=== PATIENT | female | born 1975 | race Caucasian/White ===

== ENCOUNTER → 2019-08-02 12:33 | Outpatient (BNVA) | payer SELFPAY | PROVIDERS: Family Provider Nurse Practitioner Family; PCP Nurse Practitioner Family; Referring Provider Licensed Practical Nurse; Visit Provider Psychiatry & Neurology Neurology | DX: M54.5 Low back pain (principal); M79.601 Pain in right arm; M79.602 Pain in left arm; F17.210 Nicotine dependence, cigarettes, uncomplicated | CPT/HCPCS: 95886; 95909 ==

== ENCOUNTER 2019-08-13 00:51 | Emergency (ER) | payer OTHER, SELFPAY ==
[2019-08-13 01:03] VITALS: BP 134/75; PULSE 88; RESP 16; TEMP 36.8; O2SAT 96
--- NOTE | 2019-08-13 01:09 | PC.NURSE ---
Patient reports that when she is wakes up she has difficulty walking. Patient states that she has been having numbness and tingling in her extremities. Patient reports that she also has swelling in her right hand. Patient states she has had these symptoms for a long time. Patient reports that she was seen by her PCP and placed on vitamins. Patient states that nothing has seemed to help.
--- NOTE | 2019-08-13 01:25 | ED_ITS ---
HPI - General Adult General: Chief complaint: General Medical Stated complaint: hands swelling/tingling Time Seen by Provider: 08/13/19 00:57 Source: patient Mode of arrival: ambulatory Limitations: no limitations History of Present Illness: HPI narrative: Patient comes in with pain and tingling to her hands and feet. Patient thinks that she may have circulation problems. Patient is a smoker. Patient appears well. No signs of serious illness or injury is noted on observation. Patient appears in no pain. Review of Systems General: Reports: 10 or more systems reviewed and unremarkable except in HPI and below Musc: Reports: other (hand pain) PFS ED PFSH: Statuses (acute, chronic, etc) shown below reflect problem list status as previously entered and may not be historically accurate Medical History (Updated 08/13/19 @ 01:21 by MICHAEL Corral) Intervertebral disc disorder with radiculopathy of lumbosacral region (Chronic) Low back pain (Acute) Surgical History (Updated 07/26/19 @ 11:00 by Elvia Kelly APRN) History of eye prosthesis (Acute) Social History Smoking and tobacco status: current every day smoker Alcohol intake: never Lives independently: Yes Household members: family and children Housing: House Marital status: Single Current occupational status: employed Current occupation: sales department supervisor answering phone for [employer] History of recent travel: No Physical Exam Const: COMMON NORMALS: no apparent distress and oriented x3 GENERAL APPEARANCE: cooperative HENMT: COMMON NORMALS: normocephalic, external ears normal, EAC's normal, TM's normal bilaterally and external nose normal HEAD & SCALP: normal to inspection and normocephalic FACE & SINUS: normal facial exam NOSE: external nose normal GENERAL EAR: hearing not grossly impaired EXTERNAL EAR: Yes external ears normal EXTERNAL AUDITORY CANAL: EAC's normal TYMPANIC MEMBRANE: TM's normal bilaterally MOUTH: oral and palatal mucosa normal THROAT: posterior oropharynx normal Eye: COMMON NORMALS: PERRL and EOMs intact bilaterally PUPIL: Yes PERRL Neck/C-Spine: COMMON NORMALS: full ROM and no lymphadenopathy Lymph: LYMPHATIC: no lymphedema noted Chest: COMMONS NORMALS: inspection of chest normal and palpation of chest normal Resp: COMMON NORMALS: normal respiratory effort and clear to auscultation bilaterally AUSCULTATION: clear to auscultation bilaterally Cardio: COMMON NORMALS: regular rate and regular rhythm RATE: regular rate RHYTHM: regular rhythm GI: COMMON NORMALS: normal to inspection, nondistended, normoactive bowel sounds and non-tender : COMMON NORMALS: Yes no CVA tenderness BLADDER/KIDNEY EXAM: Yes no CVA tenderness Back/Pelvis: COMMON NORMALS: no CVA tenderness and thoracic and lumbar spine normal to inspection Extremity: COMMON NORMALS: normal to inspection GENERAL: No edema Neuro: COMMON NORMALS: oriented x3, moves all extremities and no focal motor deficits Psych: COMMON NORMALS: mental status grossly normal and cooperative Skin: COMMON NORMALS: no rashes or lesions noted GENERAL SKIN EXAM: no rashes or lesions noted Course Vital Signs: Vital signs: Vital Signs Temperature 98.3 F 08/13/19 01:03 Pulse Rate 85 08/13/19 01:35 Respiratory Rate 14 08/13/19 01:35 Blood Pressure 111/73 08/13/19 01:35 Pulse Oximetry 94 08/13/19 01:35 MDM - General Adult MDM Narrative: Medical decision making narrative: Patient comes in today for complaints of tingling and burning to hands and feet. On exam patient has good range of motion the fingers prompt capillary refill is noted in the fingers. Patient may have some mild clubbing in the fingers. No swelling is noted in the extremities. Patient moves all extremities well. Patient has a positive Vince's sign. Differential diagnosis peripheral vascular disease, Buerger's disease, malingering, cervical radiculopathy, lumbar radiculopathy, carpal tunnel syndrome. Reviewed recommendations to stop smoking with patient recommended Tylenol as needed for pain. 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 Patient requested referral to specialists or a new internal medicine doctor since her primary care Dr. Bang had moved from the area. I reviewed [facility] registry and notice a Dr. Ari Evans that was new to the area and recommended that she follow-up with her who has a interest in rheumatology and is internal medicine. Patient reports understanding and agreed with plan and need for follow-up. Discharge Plan Discharge Patient Disposition: Home, Self-Care Clinical Impression: Hand and foot pain Qualifiers: Laterality: unspecified laterality Qualified Code(s): M79.643 - Pain in unspecified hand Condition: Stable Prescriptions: No Action gabapentin 300 mg capsule 300 mg PO TID RF: 0 ibuprofen 800 mg tablet 800 mg PO TID PRNRF: 0 loratadine 10 mg capsule 10 mg PO ONCE RF: 0 promethazine 25 mg tablet 25 mg PO ONCE PRNRF: 0 methocarbamol 750 mg tablet 750 mg PO TID PRNRF: 0 ranitidine HCl 75 mg tablet 75 mg PO ONCE RF: 0 Discharge Orders: Discharge Order (Routine); Ordered 08/13/19 Ordered By: Dexter Newman Referrals: Jose J Delacruz [Primary Care Provider] - Discharge Diet: Usual diet Discharge Activity: Increase activity as tolerated Patient Instructions: How to Stop Smoking (ED) Activity Restrictions/Additional Instructions: Drink plenty of water Stop smoking Activity as tolerated Use acetaminophen as needed for pain Keep hands warm Use mittens instead of gloves in the cold Follow-up with primary care Case management will contact you to assist with follow-up Discharge Date/Time: 08/13/19 01:36 Coding Level of Care Code ED Credit Director for Chg Fwd Exam Problem Focused
[2019-08-13 01:35] VITALS: BP 111/73; PULSE 85; RESP 14; O2SAT 94
--- NOTE | 2019-08-16 12:04 | DCPLANNER ---
fish farm manager had message to schedule a follow up appointment for patient with Rheumatology. fish farm manager called clinic, spoke with Tracy, a follow up appointment was scheduled. fish farm manager called patient and informed patient of the scheduled appointment, patient stated that she wanted the appointment cancelled, she will see her primary care physician. fish farm manager will mail patient both of the financial sales manager applications to fill out and turn in.
== END 2019-08-13 01:36 | disposition home or self-care (01) ==
LOC: ER 01:26
PROVIDERS: Emergency Provider Nurse Practitioner Family; Family Provider Nurse Practitioner Family; PCP Nurse Practitioner Family
DX: M79.642 Pain in left hand (principal); M79.641 Pain in right hand; M79.672 Pain in left foot; M79.671 Pain in right foot; F17.210 Nicotine dependence, cigarettes, uncomplicated
CPT/HCPCS: 99281

== ENCOUNTER 2019-10-01 11:08 | Emergency (ER) | payer SELFPAY ==
[2019-10-01 11:14] VITALS: BP 113/67; PULSE 67; RESP 16; TEMP 36.4; O2SAT 96; BMI 30.2
--- NOTE | 2019-10-01 11:21 | W.ED.GENADLT ---
Documented by User: [email or web address] Clancy 10/01/19 16:07 HPI - General Adult General: Chief complaint: General Medical Stated complaint: Sore throat Time Seen by Provider: 10/01/19 11:15 History of Present Illness: HPI narrative: Patient is a 44-year-old female who comes to the ED with a sore throat and nasal congestion. States the sore throat started today. She has had nasal congestion and drainage for couple days now. Patient was seen by urgent care a couple days ago and was diagnosed with sinus infection and put on Bactrim. Patient says they did not perform strep test her influenza swab when she was at the urgent care. Today she woke up with a sore throat and a little bit of nausea. Patient is a smoker and states she has a chronic cough and denies any acute progression or worsening of cough. Denies vomiting, diarrhea, hematuria, dysuria, abdominal pain, chest pain, shortness of breath, acute cough. Patient denies any recent travel outside of [place] in the last month. Patient has not traveled to [place], [facility] or [place] in the last month. She denies any contact with known COVID-19 positive patient. Associated symptoms: Reports nausea; Deny chest pain, dyspnea, headache(s), rash, palpitations or vomiting Review of Systems Const: Reports: fatigue; Denies: fever or chills Eyes: Denies: change in vision or eye discomfort ENMT: Reports: throat pain, nasal discharge and nasal congestion; Denies: painful swallowing Card: Denies: chest pain, palpitations, edema, swelling of feet/ankles, shortness of breath on exertion or shortness of breath when lying down Resp: Reports: non-productive cough (chronic smoker;s cough-no acute change or worsening symptoms); Denies: shortness of breath or productive cough GI: Reports: nausea; Denies: abdominal pain, vomiting, diarrhea, constipation or blood in stool : Denies: flank pain, painful urination or blood in urine Musc: Denies: neck pain, back pain or extremity swelling Skin/Breast: Denies: rash or new lesion Neuro: Denies: headache, numbness in extremities or weakness in extremities PFS ED PFSH: Medical History Intervertebral disc disorder with radiculopathy of lumbosacral region Low back pain Surgical History History of eye prosthesis Family History Mother Diabetes Father Heart disease Arthritis Social History (Updated 10/02/19 @ 12:51 by Harper Chan LPN) Smoking and tobacco status: current every day smoker Alcohol intake: never Lives independently: Yes Household members: family and children Housing: House Marital status: Single Current occupational status: unemployed History of recent travel: No Female Reproductive History: Date of last menstrual period: 09/12/19 Physical Exam Narrative: EXAM NARRATIVE: Patient is a 44-year-old female who appears in no acute distress or pain when I enter the room. She is in no respiratory distress and is sitting comfortably on exam bed. Const: COMMON NORMALS: oriented x3 HENMT: COMMON NORMALS: normocephalic, TM's normal bilaterally and external nose normal HEAD & SCALP: normocephalic NOSE: external nose normal and nasal discharge clear TYMPANIC MEMBRANE: TM's normal bilaterally MOUTH: oral and palatal mucosa normal THROAT: uvula midline and posterior oropharynx abnormal cobblestoning, erythema and other (Patient appears to have a tonsillary stone on Right side) Neck/C-Spine: COMMON NORMALS: supple GENERAL: Yes normal visual inspection Lymph: LYMPHATIC: no lymphadenopathy noted Resp: COMMON NORMALS: normal respiratory effort, no retractions, no use of accessory muscles and clear to auscultation bilaterally AUSCULTATION: clear to auscultation bilaterally Cardio: COMMON NORMALS: regular rate, regular rhythm, S1 normal heart sound, S2 normal heart sound, no gallops, no clicks, no murmurs and peripheral pulses 2+ throughout RATE: regular rate RHYTHM: regular rhythm HEART SOUNDS: S1 normal and S2 normal PERIPHERAL PULSES: pulses 2+ throughout GI: COMMON NORMALS: normal to inspection, nondistended, normoactive bowel sounds, soft to palpation, non-tender and no masses PALPATION: Yes soft : COMMON NORMALS: Yes no CVA tenderness BLADDER/KIDNEY EXAM: Yes no CVA tenderness Back/Pelvis: COMMON NORMALS: no CVA tenderness Extremity: COMMON NORMALS: normal to inspection Neuro: COMMON NORMALS: oriented x3 and moves all extremities Skin: COMMON NORMALS: no rashes or lesions noted GENERAL SKIN EXAM: no rashes or lesions noted and dry skin Course Vital Signs: Vital signs: Vital Signs Temperature 98.4 F 10/01/19 13:09 Pulse Rate 64 10/01/19 13:09 Respiratory Rate 16 10/01/19 13:09 Blood Pressure 104/57 10/01/19 13:09 Pulse Oximetry 97 10/01/19 13:09 [facility] - General Adult Lab Data: Attestation: I reviewed the patient's lab results. Labs: Lab Results 10/01/19 10/01/19 Range/Units 11:30 11:30 Influenza Type A A g Negative (Negative) POC Influenza B Ag Negative (Negative) Group A Strep Rapi d Negative (Negative) Discharge Plan Discharge Patient Disposition: Home, Self-Care Clinical Impression: Pharyngitis with viral syndrome Condition: Stable Prescriptions: No Action gabapentin 300 mg capsule 300 mg PO TID RF: 0 ibuprofen 800 mg tablet 800 mg PO TID PRNRF: 0 loratadine 10 mg capsule 10 mg PO ONCE RF: 0 promethazine 25 mg tablet 25 mg PO ONCE PRNRF: 0 methocarbamol 750 mg tablet 750 mg PO TID PRNRF: 0 ranitidine HCl 75 mg tablet 75 mg PO ONCE RF: 0 buprenorphine HCl 2 mg tablet, sublingual 4 mg SUBLINGUAL DAILY RF: 0 buprenorphine HCl 8 mg tablet, sublingual 16 mg SUBLINGUAL DAILY RF: 0 sulfamethoxazole-trimethoprim [Bactrim DS] 800-160 mg tablet 1 tab PO BID 10 Days Qty: 20 RF: 0 Discharge Orders: Discharge Order (Routine); Ordered 10/01/19 Ordered By: Yoan Cleary Referrals: Jose J Delacruz [Primary Care Provider] - Discharge Diet: Regular Discharge Activity: Resume usual activity Patient Instructions: Pharyngitis (ED) Activity Restrictions/Additional Instructions: Follow-up with PCP in 7 days for reevaluation. Take ibuprofen or Tylenol for fevers. Drink plenty of fluids and stay hydrated. Continue taking all home medications. Discharge Date/Time: 10/01/19 12:58 Coding Level of Care Code ED Agricultural Education Instructor for Chg Fwd Exam Comprehensive Documented by User: Duong Kiser DO 10/03/19 12:55 HPI - General Adult General: Chief complaint: General Medical Stated complaint: Sore throat Time Seen by Provider: 10/01/19 11:15 PFSH ED PFSH: Medical History Intervertebral disc disorder with radiculopathy of lumbosacral region Low back pain Surgical History History of eye prosthesis Family History Mother Diabetes Father Heart disease Arthritis Social History (Updated 10/02/19 @ 12:51 by Harper Chan LPN) Smoking and tobacco status: current every day smoker Alcohol intake: never Lives independently: Yes Household members: family and children Housing: House Marital status: Single Current occupational status: unemployed History of recent travel: No Course Vital Signs: Vital signs: Vital Signs Temperature 98.4 F 10/01/19 13:09 Pulse Rate 64 10/01/19 13:09 Respiratory Rate 16 10/01/19 13:09 Blood Pressure 104/57 10/01/19 13:09 Pulse Oximetry 97 10/01/19 13:09 MDM - General Adult MDM Narrative: Medical decision making narrative: Chart reviewed, agree with assessment and plan Lab Data: Labs: Lab Results 10/01/19 10/01/19 Range/Units 11:30 11:30 Influenza Type A A g Negative (Negative) POC Influenza B Ag Negative (Negative) Group A Strep Rapi d Negative (Negative) Discharge Plan Discharge Patient Disposition: Home, Self-Care Clinical Impression: Pharyngitis with viral syndrome Condition: Stable Prescriptions: No Action gabapentin 300 mg capsule 300 mg PO TID RF: 0 ibuprofen 800 mg tablet 800 mg PO TID PRNRF: 0 loratadine 10 mg capsule 10 mg PO ONCE RF: 0 promethazine 25 mg tablet 25 mg PO ONCE PRNRF: 0 methocarbamol 750 mg tablet 750 mg PO TID PRNRF: 0 ranitidine HCl 75 mg tablet 75 mg PO ONCE RF: 0 buprenorphine HCl 2 mg tablet, sublingual 4 mg SUBLINGUAL DAILY RF: 0 buprenorphine HCl 8 mg tablet, sublingual 16 mg SUBLINGUAL DAILY RF: 0 sulfamethoxazole-trimethoprim [Bactrim DS] 800-160 mg tablet 1 tab PO BID 10 Days Qty: 20 RF: 0 Discharge Orders: Discharge Order (Routine); Ordered 10/01/19 Ordered By: Yoan Cleary Referrals: Jose J Delacruz [Primary Care Provider] - Discharge Diet: Regular Discharge Activity: Resume usual activity Patient Instructions: Pharyngitis (ED) Activity Restrictions/Additional Instructions: Follow-up with PCP in 7 days for reevaluation. Take ibuprofen or Tylenol for fevers. Drink plenty of fluids and stay hydrated. Continue taking all home medications. Discharge Date/Time: 10/01/19 12:58 Coding Level of Care Code ED Agricultural Education Instructor for Julianna Fwd Exam Comprehensive
[2019-10-01 11:48] LABS: Rapid Strep A Test Negative (Negative)
[2019-10-01 11:59] LABS: Influenza A by IFA Negative (Negative); Influenza B by IFA Negative (Negative)
[2019-10-01 13:09] VITALS: BP 104/57; PULSE 64; RESP 16; TEMP 36.9; O2SAT 97
== END 2019-10-01 12:58 | disposition home or self-care (01) ==
LOC: ER 12:58
PROVIDERS: Emergency Provider Physician Assistant; Family Provider Nurse Practitioner Family; PCP Nurse Practitioner Family
DX: B34.9 Viral infection, unspecified (principal); J02.9 Acute pharyngitis, unspecified; F17.200 Nicotine dependence, unspecified, uncomplicated
CPT/HCPCS: 12345; 87081; 87804; 87880; 99282

== ENCOUNTER → 2019-10-24 13:01 | Outpatient (BNVA) | payer OTHER, SELFPAY | PROVIDERS: Family Provider Nurse Practitioner Family; PCP Nurse Practitioner Family; Referring Provider Specialist; Visit Provider Anesthesiology Pain Medicine | DX: M51.36 Other intervertebral disc degeneration, lumbar region (principal); M54.16 Radiculopathy, lumbar region; M47.816 Spondylosis without myelopathy or radiculopathy, lumbar region; M43.10 Spondylolisthesis, site unspecified; M62.830 Muscle spasm of back; F17.210 Nicotine dependence, cigarettes, uncomplicated | CPT/HCPCS: 99204; 99205 ==

== ENCOUNTER 2019-10-24 22:11 | Emergency (ER) | payer SELFPAY ==
[2019-10-24 22:18] VITALS: BP 125/65; PULSE 92; RESP 18; TEMP 36.7; O2SAT 95; BMI 30.9
--- NOTE | 2019-10-24 22:19 | W.ED.URI ---
HPI - URI/Sore Throat General: Chief Complaint: Skin/Abscess/Foreign Body Stated Complaint: sore throat Time Seen by Provider: 10/24/19 22:13 Source: patient Mode of arrival: ambulatory Limitations: no limitations History of Present Illness: HPI Narrative: Patient comes in today with complaints of sore throat. On exam she has a pustule to her right tonsil. No airway obstruction or significant swelling is noted to the tonsil. Patient appears mildly unwell. Patient appears in no acute distress. Patient appears in mild pain. MD elicited complaint: sore throat Review of Systems General: Reports: 10 or more systems reviewed and unremarkable except in HPI and below ENMT: Reports: throat pain PFSH ED PFSH: Social History Smoking and tobacco status: light tobacco smoker Alcohol intake: never Lives independently: Yes Household members: family and children Housing: House Marital status: Single Current occupational status: unemployed History of recent travel: No Female Reproductive History: Date of last menstrual period: 09/12/19 Physical Exam Const: COMMON NORMALS: no apparent distress and oriented x3 GENERAL APPEARANCE: cooperative HENMT: COMMON NORMALS: normocephalic, TM's normal bilaterally and external nose normal HEAD & SCALP: normal to inspection and normocephalic NOSE: external nose normal TYMPANIC MEMBRANE: TM's normal bilaterally MOUTH: oral and palatal mucosa normal THROAT: posterior oropharynx abnormal (A pustule was noted to the right tonsil. Airway is intact. Tonsil is very small in size and no significant airway obstruction is noted. With use of Q-tip was able to express some purulent drainage from the pustule. Collection was sent to lab.) Eye: GENERAL EYE: normal appearance of both eyes Neck/C-Spine: COMMON NORMALS: full ROM Lymph: LYMPHATIC: no lymphadenopathy noted Chest: COMMONS NORMALS: inspection of chest normal Resp: COMMON NORMALS: normal respiratory effort EFFORT & INSPECTION: Yes able to speak in complete sentences Cardio: COMMON NORMALS: regular rate and regular rhythm RATE: regular rate RHYTHM: regular rhythm GI: COMMON NORMALS: non-tender : COMMON NORMALS: Yes no CVA tenderness BLADDER/KIDNEY EXAM: Yes no CVA tenderness Back/Pelvis: COMMON NORMALS: no CVA tenderness and thoracic and lumbar spine normal to inspection Extremity: COMMON NORMALS: normal to inspection Neuro: COMMON NORMALS: oriented x3 and moves all extremities Psych: COMMON NORMALS: mental status grossly normal and cooperative Skin: COMMON NORMALS: no rashes or lesions noted GENERAL SKIN EXAM: no rashes or lesions noted Course Vital Signs: Vital signs: Vital Signs Temperature 98.0 F 10/24/19 22:18 Pulse Rate 92 10/24/19 22:18 Respiratory Rate 18 10/24/19 22:18 Blood Pressure 125/65 10/24/19 22:18 Pulse Oximetry 95 10/24/19 22:18 MDM - URI/Sore Throat MDM Narrative: Medical decision making narrative: Patient comes in for pustule to the right tonsil. On exam we were able to express some purulent drainage from the tonsil. Patient has very atrophied tonsils so no involvement in the airway or significance with swallowing is noted. Purulent drainage was collected and sent to the lab for culture. We will start patient on clindamycin 3 times a day for 10 days. Patient was given a dose tonight. Patient was also given a dose of dexamethasone for swelling and a dose of Toradol for her complaints of back pain. Differential diagnosis includes but not limited to strep pharyngitis, viral syndrome, tonsillar abscess, peritonsillar abscess. Reviewed exam with patient with recommendations for treatment. Patient reported understanding agreed to plan. Discharge Plan Discharge Patient Disposition: Home, Self-Care Clinical Impression: Tonsillar abscess Low back pain Qualifiers: Chronicity: chronic Back pain laterality: unspecified Sciatica presence: without sciatica Qualified Code(s): M54.5 - Low back pain Condition: Stable Prescriptions: New clindamycin HCl 300 mg capsule 300 mg PO TID 10 Days Qty: 30 RF: 0 No Action gabapentin 300 mg capsule 300 mg PO TID RF: 0 ibuprofen 800 mg tablet 800 mg PO TID PRNRF: 0 loratadine 10 mg capsule 10 mg PO ONCE RF: 0 promethazine 25 mg tablet 25 mg PO ONCE PRNRF: 0 methocarbamol 750 mg tablet 750 mg PO TID PRNRF: 0 ranitidine HCl 75 mg tablet 75 mg PO ONCE RF: 0 buprenorphine HCl 2 mg tablet, sublingual 4 mg SUBLINGUAL DAILY RF: 0 buprenorphine HCl 8 mg tablet, sublingual 16 mg SUBLINGUAL DAILY RF: 0 Referrals: Jose J Delacruz [Family Provider] - Brock Lux MD [Primary Care Provider] - Coding Level of Care Code ED Legal Billing Specialist for Chg Fwd Exam Comprehensive
[2019-10-24] MEDS: clindamycin 150 mg Capsule 300 MG PO (23:16)
[2019-10-24] MEDS: dexamethasone 10 mg/mL INJ IM (23:17)
[2019-10-24] MEDS: ketorolac 30 mg/mL INJ IM (23:20)
[2019-10-24 23:33] LABS: Rapid Strep A Test Negative (Negative)
[2019-10-25 00:24] VITALS: BP 119/62; PULSE 67; RESP 17; O2SAT 98
--- NOTE | 2019-10-25 12:13 | DCPLANNER ---
off track betting manager had message to schedule a follow up appointment for patient with ENT. off track betting manager spoke with patient, supportive employment case manager informed patient that the ENT for [facility] was out of the office till next week, but that supportive employment case manager could schedule a follow up appointment for patient with Dr. Guerra in [place], if patient would like. Patient stated that she has free health care at [facility], and would like for supportive employment case manager to schedule a follow up appointment with [facility]. off track betting manager called [facility], the ENT clinic. off track betting manager gave clinic patients information, was told that a message would be sent to the physician and a follow up appointment would be scheduled. Clinic will call supportive employment case manager and patient with appointment information.
--- NOTE | 2019-11-01 10:15 | DCPLANNER ---
cattle manager called [facility] ENT, patient has a follow up appointment scheduled for Saturday, November 02, 2019 at 11:[address] Barakat.
--- NOTE | 2019-11-28 14:17 | DCPLANNER ---
Patient attended appointment scheduled for 11.02.19 with [facility] ENT, patient did attend the appointment.
== END 2019-10-25 00:26 | disposition home or self-care (01) ==
PROVIDERS: Emergency Provider Nurse Practitioner Family; Family Provider Nurse Practitioner Family; PCP Family Medicine
DX: J36 Peritonsillar abscess (principal); F17.210 Nicotine dependence, cigarettes, uncomplicated
CPT/HCPCS: 12345; 87070; 87880; 96372; 99282; J1100; J1885

== ENCOUNTER → 2019-12-07 18:56 | Outpatient (BNVA) | payer SELFPAY | PROVIDERS: Family Provider Nurse Practitioner Family; PCP Family Medicine; Visit Provider Nurse Practitioner Family | DX: J02.0 Streptococcal pharyngitis (principal) | CPT/HCPCS: 87880 ==

== ENCOUNTER → 2019-12-31 08:49 | Outpatient (BNVA) | payer OTHER, SELFPAY | PROVIDERS: Family Provider Nurse Practitioner Family; PCP Family Medicine; Visit Provider Anesthesiology Pain Medicine | DX: M54.41 Lumbago with sciatica, right side (principal); M54.42 Lumbago with sciatica, left side; M54.16 Radiculopathy, lumbar region; F17.210 Nicotine dependence, cigarettes, uncomplicated | CPT/HCPCS: 99213 ==

== ENCOUNTER → 2020-05-19 15:46 | Outpatient (BNVA) | payer OTHER, SELFPAY | PROVIDERS: Family Provider Nurse Practitioner Family; PCP Family Medicine; Visit Provider Nurse Practitioner Family | DX: Z11.59 Encounter for screening for other viral diseases (principal); Z20.828 Contact with and (suspected) exposure to other viral communicable diseases; J06.9 Acute upper respiratory infection, unspecified | CPT/HCPCS: 87635 ==

== ENCOUNTER → 2020-06-27 12:05 | Outpatient (BNVA) | payer SELFPAY | PROVIDERS: Family Provider Nurse Practitioner Family; PCP Family Medicine; Visit Provider Nurse Practitioner | DX: J02.9 Acute pharyngitis, unspecified (principal); H66.92 Otitis media, unspecified, left ear; J01.90 Acute sinusitis, unspecified | CPT/HCPCS: 87071; 87880 ==

== ENCOUNTER 2020-10-05 17:56 | Emergency (ER) | payer SELFPAY ==
[2020-10-05 18:01] VITALS: BP 113/69; PULSE 71; RESP 18; TEMP 36.8; O2SAT 98; BMI 27.4
--- NOTE | 2020-10-05 18:50 | ED_ITS ---
HPI - Back Pain/Injury General: Chief Complaint: Back Pain/Injury Stated Complaint: mid to lower back pain Time Seen by Provider: 10/05/20 18:12 Source: patient Mode of arrival: ambulatory Limitations: no limitations History of Present Illness: HPI Narrative: Patient is a 45-year-old female with chronic back pain. She said she occasionally gets flareups of pain and she tries to manage it at home but this episode has been too severe for her to manage. She normally takes gabapentin regularly but this has not helped her pain. Pain has been ongoing for a few days now. She denies any fall or back injuries. Denies any fever. Denies any weakness in her legs, denies any fecal or urinary incontinence. Denies any paresthesia or perianal anesthesia. MD elicited complaint: back pain Pertinent past history: prior back pain Onset (ago): day(s) Timing: constant Severity: severe Similar Symptoms Previously: Yes Quality: sharp Location: right lower back and left lower back Radiation: left leg below the knee and right leg below the knee Exacerbating factors: movement Relieving factors: none Associated symptoms: Deny abdominal pain, arthralgias, chills, change in bowel habits, difficulty walking, dysuria, fatigue, fecal incontinence, fever(s), hematuria, myalgias, nausea, numbness, syncope, tingling/numbness/burning, urinary frequency, urinary urgency, vomiting or weakness Treatments prior to arrival: NSAIDS, prescription analgesics and other medications Work related injury: No Review of Systems General: Reports: 10 or more systems reviewed and unremarkable except in HPI and below Const: Denies: fever(s), chills or fatigue Card: Denies: syncope GI: Denies: abdominal pain, nausea, vomiting, fecal incontinence or change in bowel habits : Denies: dysuria, urinary urgency or hematuria Neuro: Denies: difficulty walking PFSH ED PFSH: Medical History Intervertebral disc disorder with radiculopathy of lumbosacral region Low back pain Surgical History History of eye prosthesis Family History Mother Diabetes Father Heart disease Arthritis Social History Smoking and tobacco status: light tobacco smoker Alcohol intake: never Lives independently: Yes Household members: family and children Housing: House Marital status: Single Current occupational status: unemployed History of recent travel: No Female Reproductive History: Date of last menstrual period: 09/12/19 Physical Exam Const: COMMON NORMALS: no acute distress, average body habitus, patient oriented x3, no limitations, healthy appearing, alert and well nourished Neck/C-Spine: COMMON NORMALS: full ROM, supple, no meningeal signs, no JVD and No carotid bruits Resp: COMMON NORMALS: normal respiratory effort, No retractions, No use of accessory muscles, clear to auscultation bilaterally and percussion normal AUSCULTATION: clear to auscultation bilaterally PERCUSSION: percussion normal Cardio: COMMON NORMALS: no JVD, regular rate, regular rhythm, S1 normal heart sound present, S2 normal heart sound present, No gallops present (Cardio), No clicks present (Cardio), No murmurs present (Cardio), No rub (Cardio) and Peripheral pulses 2+ throughout RATE: regular rate RHYTHM: regular rhythm HEART SOUNDS: S1 normal heart sound present and S2 normal heart sound present PERIPHERAL PULSES: Peripheral pulses 2+ throughout GI: COMMON NORMALS: Normal to inspection, nondistended, normoactive bowel sounds present, Soft to palpation, non-tender, No hepatosplenomegaly present, no masses and no bruits PALPATION: Yes Soft to palpation and Yes No hepatosplenomegaly present Back/Pelvis: LUMBAR SPINE/LOWER BACK: Yes paraspinal muscle tenderness Lumbar paraspinal muscle tenderness: bilateral and Yes paraspinal muscle spasm Lumbar paraspinal muscle spasm: bilateral SACROILIAC JOINTS: Yes SI joint(s) abnormal SI joint details: tender to palpation Extremity: COMMON NORMALS: normal to inspection, full ROM, capillary refill normal, no calf tenderness and no pedal edema Neuro: COMMON NORMALS: patient oriented x3 SENSORIUM/ORIENTATION: Yes alert MENINGEAL SIGNS: Yes no meningeal signs Skin: COMMON NORMALS: no rashes or lesions noted, no wounds, turgor normal, no jaundice, no petechiae and no mottling GENERAL SKIN EXAM: no rashes or lesions noted and turgor normal Course Reevaluation(s): Reevaluation #1: Patient just wants a steroid shot and to be discharged home. She says that usually helps with her pain. Time: 18:51 Vital Signs: Vital signs: Vital Signs Temperature 98.2 F 10/05/20 18:01 Pulse Rate 71 10/05/20 18:01 Respiratory Rate 18 10/05/20 18:01 Blood Pressure 113/69 10/05/20 18:01 Pulse Oximetry 98 10/05/20 18:01 MDM - Back Pain/Injury MDM Narrative: Medical decision making narrative: 45-year-old female patient who presented to the emergency department with 2 stents with lumbar radiculopathy. She was given intramuscular ketorolac, dexamethasone, and orphenadrine. She is then discharged home Medical Records: Attestation: I reviewed the patient's medical records. Discharge Plan Discharge Patient Disposition: Home Clinical Impression: Lumbar radiculopathy Condition: Stable Prescriptions: Continued gabapentin 300 mg capsule 300 mg PO TID RF: 0 ibuprofen 800 mg tablet 800 mg PO TID PRNRF: 0 loratadine 10 mg capsule 10 mg PO ONCE RF: 0 promethazine 25 mg tablet 25 mg PO ONCE PRNRF: 0 methocarbamol 750 mg tablet 750 mg PO TID PRNRF: 0 buprenorphine HCl 2 mg tablet, sublingual 4 mg SUBLINGUAL DAILY RF: 0 buprenorphine HCl 8 mg tablet, sublingual 16 mg SUBLINGUAL DAILY RF: 0 amoxicillin 500 mg capsule 500 mg PO TID 10 Days Qty: 30 RF: 0 Discharge Orders: Discharge ED (Routine); Ordered 10/05/20 Ordered By: Naya Deluca Referrals: Brock Lux MD [Primary Care Provider] - 1-3 days Discharge Diet: Usual diet Discharge Activity: Increase activity as tolerated Patient Instructions: Lumbar Radiculopathy (ED) Activity Restrictions/Additional Instructions: Return for any new or worsening symptoms. Follow up with your primary care provider within 3 days. Continue your home medications. Rest your back for one to two days, then gradually return to your prior levels of activity. Coding Level of Care Code ED Traffic Court Referee for Julianna Irene
[2020-10-05] MEDS: orphenadrine 30 mg/mL Inj 2 mL 60 MG IM (19:06)
[2020-10-05] MEDS: dexamethasone 10 mg/mL INJ IM (19:06)
[2020-10-05] MEDS: ketorolac 30 mg/mL INJ IM (19:06)
== END 2020-10-05 19:10 | disposition home or self-care (01) ==
PROVIDERS: Emergency Provider Family Medicine; PCP Family Medicine
DX: M54.16 Radiculopathy, lumbar region (principal); F17.210 Nicotine dependence, cigarettes, uncomplicated
CPT/HCPCS: 96372; 99283; J1100; J1885; J2360

== ENCOUNTER → 2021-03-19 14:24 | Outpatient (BNVA) | payer OTHER, SELFPAY | PROVIDERS: PCP Family Medicine; Visit Provider Nurse Practitioner Family | DX: Z20.822 Contact with and (suspected) exposure to COVID-19 (principal); J06.9 Acute upper respiratory infection, unspecified | CPT/HCPCS: 87635 ==

== ENCOUNTER → 2021-03-21 12:27 | Outpatient (BNVA) | payer SELFPAY | PROVIDERS: PCP Family Medicine; Visit Provider Nurse Practitioner | DX: J02.9 Acute pharyngitis, unspecified (principal) | CPT/HCPCS: 87880 ==

== ENCOUNTER 2021-06-13 10:32 | Emergency (ER) | payer SELFPAY ==
[2021-06-13 10:46] VITALS: BP 107/73; PULSE 76; RESP 16; TEMP 36.8; O2SAT 97; BMI 25.9
--- NOTE | 2021-06-13 10:52 | XRR_ITS ---
PROCEDURE INFORMATION: Exam: XR Right Shoulder Exam date and time: 06/13/2021 10:52 AM Age: 45 years old Clinical indication: Pain; Shoulder; Right; Additional info: Right shoulder pain TECHNIQUE: Imaging protocol: XR Right shoulder. Views: 2 or more views. COMPARISON: CR Shoulder 2+ views RIGHT* [id number] 05/03/2018 3:17 PM FINDINGS: Bones/joints: Bones intact and normally aligned. Normal appearance of the glenohumeral and acromioclavicular joints. Soft tissues: Soft tissues unremarkable. XR/XR shoulder RT min 2V* [id number] IMPRESSION: No acute findings. Radiation Dose CTDIVOL = (mGy): DLP = (mGy-cm)
--- NOTE | 2021-06-13 10:52 | W.ED.EXTPRO ---
HPI - Extremity Problem General: Chief complaint: Extremity Injury, Upper Stated complaint: R SHOULDER/BILATERAL EAR/BACK PAINS Time Seen by Provider: 06/13/21 10:51 Source: patient Mode of arrival: ambulatory Limitations: no limitations History of Present Illness: HPI Narrative: 45-year-old female ER today for cough, congestion, ear pain x3 days. Patient also reports right shoulder pain that started after working and lifting wood yesterday. Patient reports history of chronic back pain which is a little bit worse today and she attributes that to also working and lifting wood yesterday. Patient denies any history of a right shoulder injury. She reports pain is not always present but only with certain movements. She cannot identify these movements, they hit suddenly and patient has severe pain but it quickly goes away. Patient denies any weakness in the right arm or shoulder. For patient's congestion and cough she reports she has taken Afrin a couple of times but otherwise not done anything for her symptoms. Patient denies any ear discharge at this time. Patient reports she is a smoker but was recently started on Wellbutrin to help her stop smoking. She is on day 5 and plans to stop that tomorrow. Denies any fever, chills, headache, chest pain, shortness of breath, nausea, vomiting, diarrhea, constipation. Complaint: joint pain Onset (ago): day(s) Pain Consistency: intermittent Location: right Severity scale (1-10): 8 Quality: stabbing Radiation: none Relieving factors: nothing Exacerbating factors: nothing Associated symptoms: Deny chest pain, fever(s) or rash Review of Systems General: Reports: 10 or more systems reviewed and unremarkable except in HPI and below Const: Denies: fever(s), chills, body aches or fatigue ENMT: Reports: ear or mastoid pain, nasal discharge and nasal congestion; Denies: throat pain, ear discharge or change in hearing Card: Denies: chest pain or palpitations Resp: Reports: productive cough and wheezing; Denies: dyspnea GI: Denies: abdominal pain, nausea, vomiting, diarrhea or constipation Musc: Reports: back pain (Chronic back pain) and joint pain (Right shoulder pain); Denies: neck pain Skin/Breast: Denies: rash or pruritus Neuro: Denies: headache(s), numbness in extremities or dizziness PFS ED PFSH: Medical History Intervertebral disc disorder with radiculopathy of lumbosacral region Low back pain Surgical History History of eye prosthesis Family History Mother Diabetes Father Heart disease Arthritis Social History Alcohol intake: never Lives independently: Yes Household members: family and children Housing: House Marital status: Single Current occupational status: unemployed History of recent travel: No Female Reproductive History: Date of last menstrual period: 09/12/19 Physical Exam Const: COMMON NORMALS: no acute distress, average body habitus and patient oriented x3 GENERAL APPEARANCE: cooperative and comfortable HENMT: COMMON NORMALS: normocephalic, external ears normal, TM's normal bilaterally, Normal external nose present and oropharynx normal HEAD & SCALP: normocephalic NOSE: Normal external nose present, Abnormal mucous membranes and turbinates present erythematous and Nasal discharge present clear EXTERNAL EAR: Yes external ears normal TYMPANIC MEMBRANE: TM's normal bilaterally Eye: COMMON NORMALS: conjunctivae normal GENERAL EYE: appearance normal, both eyes and all related structures CONJUNCTIVA: Yes conjunctivae normal Lymph: LYMPHATIC: no lymphadenopathy noted Resp: COMMON NORMALS: normal respiratory effort and No retractions EFFORT & INSPECTION: Yes able to speak in complete sentences AUSCULTATION: no crackles, no rales, no rhonchi, wheezes inspiratory wheezes and throughout and lung sounds not diminished Cardio: COMMON NORMALS: regular rate and regular rhythm RATE: regular rate RHYTHM: regular rhythm GI: COMMON NORMALS: Normal to inspection, nondistended, normoactive bowel sounds present, Soft to palpation and non-tender PALPATION: Yes Soft to palpation : COMMON NORMALS: Yes no CVA tenderness BLADDER/KIDNEY EXAM: Yes no CVA tenderness Back/Pelvis: COMMON NORMALS: no CVA tenderness LUMBAR SPINE/LOWER BACK: Yes normal to inspection, Yes lumbar ROM normal, Yes lumbar spinal tenderness (mild) Lumbar spinal tenderness location: L5, No paraspinal muscle tenderness and No paraspinal muscle spasm Extremity: RIGHT UPPER EXTREMITY: Yes shoulder joint (non tender to palpation) Right shoulder: Yes Right shoulder joint inspection exam (Normal), Yes palpation, Yes Right shoulder joint ROM exam (Normal range of motion, no pain elicited with range of motion), Yes Right shoulder joint neurovascular exam (Intact) and Yes Right shoulder joint special tests Right shoulder special tests: Empty can test: Negative Neuro: COMMON NORMALS: patient oriented x3, moves all extremities, no sensory deficits noted and gait normal Psych: COMMON NORMALS: mental status grossly normal, Normal thought process present, cooperative, normal affect and speech normal SPEECH: Yes normal speech THOUGHT PROCESS: Normal thought process present Skin: COMMON NORMALS: no rashes or lesions noted GENERAL SKIN EXAM: no rashes or lesions noted Course ED course: Patient presents to the ER today for congestion, ear pain, cough, and right shoulder pain. Patient reports the congestion and upper respiratory symptoms have been going on for 3 days now. She denies any fever or chills associated with those. Patient also complains of right shoulder pain that happened after lifting wood yesterday. She has a history of low back pain and has some mild pain since lifting the would also. Patient does not have anything like a muscle relaxer at home. We will get x-ray of the right shoulder although range of motion is normal at this time. Based on history and physical exam, likely this is a viral URI which can be treated with [id number] medications. Vital Signs: Vital signs: Vital Signs Temperature 98.2 F 06/13/21 10:46 Pulse Rate 63 06/13/21 11:30 Respiratory Rate 15 06/13/21 11:30 Blood Pressure 107/73 06/13/21 10:46 Pulse Oximetry 94 06/13/21 11:30 MDM - Extremity (Nontraumatic) MDM Narrative: Medical decision making narrative: 45-year-old female presents to the ER today for congestion, ear pain, cough, and right shoulder pain. Patient reports the congestion and upper respiratory symptoms have been going on for 3 days now. She denies any fever or chills associated with those. Patient also complains of right shoulder pain that happened after lifting wood yesterday. She has a history of low back pain and has some mild pain since lifting the would also. Patient does not have anything like a muscle relaxer at home. We will get x-ray of the right shoulder although range of motion is normal at this time. Based on history and physical exam, likely this is a viral URI which can be treated with [id number] medications. Recommended Sudafed or Mucinex for those symptoms. Patient also is significantly wheezy throughout lungs bilaterally so we will treat with albuterol inhaler for that. Patient is a smoker but is trying to quit. Denies shortness of breath at this time. We will send patient home on a Medrol Dosepak and also Robaxin. This should help with not only patient's shoulder pain but also some of the wheezing. Patient should follow-up with primary care in 5 to 7 days if no improvement. Return to the ER with any new or worsening symptoms. Imaging Data^: Xray Ortho: Radiologist's impression: [address] [address] XRay Report Signed Patient: Sissy Samuels Unit #: [id number] : 1975 Age/Sex: 45 / F ADM Date: 06/13/21 Loc: ER Room/Bed: Attending Dr: Ordering Provider/Ordering MD: Maritza Sanderson Date of Service: 06/13/21 Procedure(s): XR shoulder RT min 2V* [id number] Accession Number(s): [id number] Report Number: [id number] PROCEDURE INFORMATION: Exam: XR Right Shoulder Exam date and time: 06/13/2021 10:52 AM Age: 45 years old Clinical indication: Pain; Shoulder; Right; Additional info: Right shoulder pain TECHNIQUE: Imaging protocol: XR Right shoulder. Views: 2 or more views. COMPARISON: CR Shoulder 2+ views RIGHT* [id number] 05/03/2018 3:17 PM FINDINGS: Bones/joints: Bones intact and normally aligned. Normal appearance of the glenohumeral and acromioclavicular joints. Soft tissues: Soft tissues unremarkable. XR/XR shoulder RT min 2V* [id number] IMPRESSION: No acute findings. Radiation Dose CTDIVOL = (mGy): DLP = (mGy-cm) Dictated By: Catrachito Painter MD Signed By: Catrachito Painter MD Signed Date/Time: 06/13/21 1212 Discharge Plan Discharge Patient Disposition: Home Clinical Impression: Viral URI with cough Right shoulder strain Qualifiers: Encounter type: initial encounter Qualified Code(s): S46.911A - Strain of unspecified muscle, fascia and tendon at shoulder and upper arm level, right arm, initial encounter Condition: Stable Prescriptions: New Medrol (Bg) 4 mg tablets,dose pack See Rx Instructions PO .COMPLEX Qty: 21 RF: 0 methocarbamol 750 mg tablet 750 mg PO Q8H Qty: 21 RF: 0 Ventolin HFA 90 mcg/actuation HFA aerosol inhaler 2 inh inhalation Q6H PRN (Reason: shortness of breath or wheezing) Qty: 6.7 RF: 0 No Action gabapentin 300 mg capsule 300 mg PO TID RF: 0 ibuprofen 800 mg tablet 800 mg PO TID PRNRF: 0 loratadine 10 mg capsule 10 mg PO ONCE RF: 0 promethazine 25 mg tablet 25 mg PO ONCE PRNRF: 0 buprenorphine HCl 2 mg tablet, sublingual 4 mg SUBLINGUAL DAILY RF: 0 buprenorphine HCl 8 mg tablet, sublingual 16 mg SUBLINGUAL DAILY RF: 0 Discharge Orders: Discharge ED (Routine); Ordered 06/13/21 Ordered By: Maritza Sanderson Referrals: Brock Lux MD [Primary Care Provider] - Discharge Diet: Usual diet Discharge Activity: Resume usual activity Patient Instructions: Upper Respiratory Infection (ED), Shoulder Sprain (ED), Opioid Safety Activity Restrictions/Additional Instructions: Take medications as prescribed. Use inhaler for any shortness of breath or wheezing. Smoking cessation advised. Warm moist heat alternating with ice should be applied to the shoulder for pain. Topical muscle rub also recommended but do not use with heat or ice. Increase fluid intake. Follow-up with PCP in 5 to 7 days if no improvement. Return to the ER with any new or worsening symptoms. Coding Level of Care Code ED Director [employer] for Julianna Fwd Exam Comprehensive
[2021-06-13 11:30] VITALS: PULSE 63; RESP 15; O2SAT 94
== END 2021-06-13 11:30 | disposition home or self-care (01) ==
PROVIDERS: Emergency Provider Physician Assistant; PCP Family Medicine
DX: S46.911A Strain of unspecified muscle, fascia and tendon at shoulder and upper arm level, right arm, initial encounter (principal); J06.9 Acute upper respiratory infection, unspecified; X50.0XXA Overexertion from strenuous movement or load, initial encounter
CPT/HCPCS: 73030; 99282

== ENCOUNTER 2021-07-05 12:04 | Emergency (ER) | payer SELFPAY ==
[2021-07-05 12:24] VITALS: BP 103/64; PULSE 71; RESP 12; TEMP 36.5; O2SAT 98; BMI 25.7
--- NOTE | 2021-07-05 13:02 | ED_ITS ---
HPI - Back Pain/Injury General: Chief Complaint: Back Pain/Injury Stated Complaint: back pain, bilateral ear pain Time Seen by Provider: 07/05/21 13:02 History of Present Illness: HPI Narrative: sciatica pain x 2 weeks fluid behind ears/ear pain Pertinent past history: prior back pain Location: lumbar spine Review of Systems General: Reports: 10 or more systems reviewed and unremarkable except in HPI and below ENMT: Reports: ear or mastoid pain (bilateral and bubbling noise ) Musc: Reports: back pain and extremity pain PFSH ED PFSH: Medical History Intervertebral disc disorder with radiculopathy of lumbosacral region Low back pain Surgical History History of eye prosthesis Family History Mother Diabetes Father Heart disease Arthritis Social History Alcohol intake: never Lives independently: Yes Household members: family and children Housing: House Marital status: Single Current occupational status: unemployed History of recent travel: No Female Reproductive History: Date of last menstrual period: 09/12/19 Physical Exam Const: COMMON NORMALS: no acute distress, patient oriented x3, no limitations and alert GENERAL APPEARANCE: cooperative and comfortable ORIENTATION/CONSCIOUSNESS: Yes awake, Yes oriented to person, Yes oriented to place and Yes oriented to time HENMT: COMMON NORMALS: normocephalic, atraumatic, external ears normal, EAC's normal and Normal external nose present HEAD & SCALP: normal to inspection, normocephalic and atraumatic FACE & SINUS: normal facial exam, sinuses nontender and face symmetric NOSE: Normal external nose present, Normal nares present and No nasal discharge present EXTERNAL EAR: Yes external ears normal EXTERNAL AUDITORY CANAL: EAC's normal TYMPANIC MEMBRANE: TM abnormal (fluid) TM laterality: left MOUTH: Normal oral and palatal mucosa present, lip normal and tongue normal THROAT: posterior oropharynx normal, tonsils normal and uvula midline Eye: COMMON NORMALS: Equal, round and reactive pupils present, EOMs intact bilaterally and conjunctivae normal GENERAL EYE: appearance normal, both eyes and all related structures and normal light reflex EYELID: eyelids normal CONJUNCTIVA: Yes conjunctivae normal PUPIL: Yes Equal, round and reactive pupils present EOM: Yes EOM abnormal DIRECT OPHTHALMOSCOPY: Yes normal light reflex Neck/C-Spine: COMMON NORMALS: full ROM, no lymphadenopathy, supple, no meningeal signs, no JVD and Thyroid normal GENERAL: Yes normal visual inspection THYROID: Thyroid normal CERVICAL SPINE: Yes cervical ROM normal and Yes normal cervical lordosis Lymph: LYMPHATIC: no lymphadenopathy noted Chest: COMMONS NORMALS: normal inspection of the chest and normal palpation of entire chest wall Resp: COMMON NORMALS: normal respiratory effort, No retractions and clear to auscultation bilaterally AUSCULTATION: clear to auscultation bilaterally Cardio: COMMON NORMALS: no JVD, regular rate, regular rhythm, S1 normal heart sound present, S2 normal heart sound present, No gallops present (Cardio), No clicks present (Cardio), No murmurs present (Cardio), No rub (Cardio) and Peripheral pulses 2+ throughout RATE: regular rate RHYTHM: regular rhythm HEART SOUNDS: S1 normal heart sound present and S2 normal heart sound present PERIPHERAL PULSES: Peripheral pulses 2+ throughout GI: COMMON NORMALS: Normal to inspection, nondistended, normoactive bowel sounds present, Soft to palpation, non-tender and no masses PALPATION: Yes Soft to palpation : COMMON NORMALS: Yes no CVA tenderness and Yes normal external appearance BLADDER/KIDNEY EXAM: Yes no CVA tenderness Back/Pelvis: COMMON NORMALS: no CVA tenderness, thoracic and lumbar spine normal to inspection, no thoracic nor lumbar tenderness and thoraco-lumbar ROM normal Extremity: COMMON NORMALS: normal to inspection, full ROM, capillary refill normal, no joint enlargement, no clubbing, cyanosis or edema, no calf tenderness and no pedal edema GENERAL: Yes normal exam except as noted Neuro: COMMON NORMALS: patient oriented x3, moves all extremities, no focal motor deficits, no sensory deficits noted and gait normal SENSORIUM/ORIENTATION: Yes alert, Yes oriented to person, Yes oriented to place and Yes oriented to time MENINGEAL SIGNS: Yes no meningeal signs Psych: COMMON NORMALS: mental status grossly normal, Normal thought process present, cooperative, normal affect, speech normal and activity/motor behavior normal SPEECH: Yes normal speech THOUGHT PROCESS: Normal thought process present Skin: COMMON NORMALS: no rashes or lesions noted, no wounds and turgor normal GENERAL SKIN EXAM: no rashes or lesions noted and turgor normal Course ED course: Pt presents with complaints of sciatica going down both legs and in lumbar spine, radiating downward. Increasing over the past two weeks and no recent traumas. Pt also notes BL ear pain and bubbling sounds. Notable fluid behind the ears, more so on the left. Will treat for sciatica as it radiates down both legs and is consistent with sciatica complaints- she does not warrant the need for imaging. Vital Signs: Vital signs: Vital Signs Temperature 97.7 F 07/05/21 12:24 Pulse Rate 71 07/05/21 12:24 Respiratory Rate 12 07/05/21 12:24 Blood Pressure 103/64 07/05/21 12:24 Pulse Oximetry 98 07/05/21 12:24 Discharge Plan Discharge Patient Disposition: Home Clinical Impression: Sciatica, Fluid level behind tympanic membrane of left ear Condition: Stable Prescriptions: New Medrol (Bg) 4 mg tablets,dose pack See Rx Instructions .ROUTE .COMPLEX Qty: 21 RF: 0 Celebrex 50 mg capsule 50 mg PO BID Qty: 10 RF: 0 Carla-D 24 Hour 180-240 mg tablet extended release 24 hr 1 tab PO DAILY Qty: 10 RF: 0 cyclobenzaprine 10 mg tablet 10 mg PO BID Qty: 10 RF: 0 No Action gabapentin 300 mg capsule 300 mg PO TID RF: 0 ibuprofen 800 mg tablet 800 mg PO TID PRNRF: 0 loratadine 10 mg capsule 10 mg PO ONCE RF: 0 promethazine 25 mg tablet 25 mg PO ONCE PRNRF: 0 buprenorphine HCl 2 mg tablet, sublingual 4 mg SUBLINGUAL DAILY RF: 0 buprenorphine HCl 8 mg tablet, sublingual 16 mg SUBLINGUAL DAILY RF: 0 Medrol (Bg) 4 mg tablets,dose pack See Rx Instructions PO .COMPLEX Qty: 21 RF: 0 methocarbamol 750 mg tablet 750 mg PO Q8H Qty: 21 RF: 0 Ventolin HFA 90 mcg/actuation HFA aerosol inhaler 2 inh inhalation Q6H PRN (Reason: shortness of breath or wheezing) Qty: 6.7 RF: 0 Discharge Orders: Discharge ED (Routine); Ordered 07/05/21 Ordered By: Bre Cantor Referrals: Brock Lux MD [Primary Care Provider] - Discharge Diet: Usual diet Discharge Activity: Increase activity as tolerated Patient Instructions: Opioid Safety Coding Level of Care Code ED Mys[employer] Developer for Julianna Irene
[2021-07-05] MEDS: orphenadrine 30 mg/mL Inj 2 mL 60 MG IM (14:30)
[2021-07-05] MEDS: ketorolac 60 mg/2 mL INJ IM (14:30)
[2021-07-05] MEDS: dexamethasone 10 mg/mL INJ IM (14:30)
[2021-07-05 15:02] VITALS: BP 99/64; PULSE 71; RESP 16; TEMP 36.6; O2SAT 98
--- NOTE | 2021-07-05 15:04 | PC.NURSE ---
reviewed discharge paperwork with patient, patient verbalizes understanding of instructions, new prescriptions and follow ups. pt states her pain has decreased
== END 2021-07-05 15:13 | disposition home or self-care (01) ==
PROVIDERS: Emergency Provider Nurse Practitioner Family; PCP Family Medicine
DX: M54.30 Sciatica, unspecified side (principal); H93.8X2 Other specified disorders of left ear
CPT/HCPCS: 96372; 99283; J1100; J1885; J2360

== ENCOUNTER → 2021-08-11 18:52 | Outpatient (BNVA) | payer SELFPAY | PROVIDERS: PCP Family Medicine; Visit Provider Nurse Practitioner | DX: J02.9 Acute pharyngitis, unspecified (principal) | CPT/HCPCS: 87635; 87880 ==

== ENCOUNTER 2021-08-21 21:11 | Emergency (ER) | payer SELFPAY ==
[2021-08-21 21:18] VITALS: BP 117/68; PULSE 79; RESP 18; TEMP 36.6; O2SAT 97; BMI 25.7
--- NOTE | 2021-08-21 21:25 | ED_ITS ---
HPI - Eye Problem General: Chief complaint: Eye Problems Stated complaint: Injury Rt Eye Time Seen by Provider: 08/21/21 21:25 History of Present Illness: 46-year-old female comes in today with complaints of right eye irritation. Patient got some sawdust in her eye earlier today and was concerned that there was retained foreign material. Patient had been seen at urgent care but continues to have discomfort. Patient appears well. Patient appears no acute distress. chief complaint: foreign body Onset (ago): hour(s) Onset description: sudden Duration: constant Location: right eye Eye Symptoms: redness and foreign body sensation Place: work Mechanism: other (Sawdust exposure) Severity: moderate Review of Systems General: Reports: 10 or more systems reviewed and unremarkable except in HPI and below Eyes: Reports: eye discomfort, eye redness and increased production of tears PFS ED PFSH: Medical History (Updated 08/21/21 @ 21:50 by MICHAEL Corral) Intervertebral disc disorder with radiculopathy of lumbosacral region Low back pain Surgical History History of eye prosthesis Family History Mother Diabetes Father Heart disease Arthritis Social History Smoking and tobacco status: current some day smoker Alcohol intake: never Lives independently: Yes Household members: family and children Housing: House Marital status: Single Current occupational status: unemployed History of recent travel: No Female Reproductive History: Date of last menstrual period: 09/12/19 Physical Exam Const: COMMON NORMALS: alert Eye: COMMON NORMALS: Equal, round and reactive pupils present and EOMs intact bilaterally GENERAL EYE: normal light reflex EYELID: eyelids normal CONJUNCTIVA: Yes conjunctival abnormal positive right conjunctival injection SCLERA: sclerae normal CORNEA: Yes fluorescein used (Small abrasion noted to the medial 3 o'clock position of the eye.) PUPIL: Yes Equal, round and reactive pupils present DIRECT OPHTHALMOSCOPY: Yes normal light reflex and Yes anterior chamber normal Resp: COMMON NORMALS: normal respiratory effort Extremity: COMMON NORMALS: normal to inspection Neuro: SENSORIUM/ORIENTATION: Yes alert Psych: COMMON NORMALS: cooperative Skin: COMMON NORMALS: no rashes or lesions noted GENERAL SKIN EXAM: no rashes or lesions noted Course Vital Signs: Vital signs: Vital Signs Temperature 98 F 08/21/21 21:18 Pulse Rate 79 08/21/21 21:18 Respiratory Rate 18 08/21/21 21:18 Blood Pressure 117/68 08/21/21 21:18 Pulse Oximetry 97 08/21/21 21:18 MDM - Eye Problem Medical Decision Making 46-year-old female comes in today with complaints of injury to the right eye. On exam patient is alert and oriented. Fluorescein stain was performed to the right eye with noticeable superficial abrasion to the medial 3 o'clock position at the edge of the iris. EOMs are intact. Patient has a prosthetic left eye. Pupils responsive. Differential diagnosis includes conjunctivitis, foreign body eye, corneal abrasion. Corneal abrasion was noted on the exam. No foreign body was noted. Eye was irrigated with 60 mL of eyestrain. Patient tolerated well and had relief of discomfort. Discharge Plan Discharge Patient Disposition: Home Clinical Impression: Corneal abrasion Qualifiers: Encounter type: subsequent encounter Laterality: right Qualified Code(s): S05.01XD - Injury of conjunctiva and corneal abrasion without foreign body, right eye, subsequent encounter Condition: Stable Prescriptions: No Action gabapentin 300 mg capsule 300 mg PO TID 0RF ibuprofen 800 mg tablet 800 mg PO TID PRN0RF loratadine 10 mg capsule 10 mg PO ONCE 0RF promethazine 25 mg tablet 25 mg PO ONCE PRN0RF buprenorphine HCl 2 mg tablet, sublingual 4 mg SUBLINGUAL DAILY 0RF buprenorphine HCl 8 mg tablet, sublingual 16 mg SUBLINGUAL DAILY 0RF tobramycin-dexamethasone 0.3-0.1 % drops,suspension 1 drp ophthalmic (eye) TID 5 Days Qty: 5 0RF cyclobenzaprine 10 mg tablet 10 mg PO BID PRN (Reason: muscle spasm) 7 Days Qty: 7 0RF Ventolin HFA 90 mcg/actuation HFA aerosol inhaler 2 inh inhalation Q6H PRN (Reason: shortness of breath or wheezing) Qty: 6.7 0RF Celebrex 50 mg capsule 50 mg PO BID Qty: 10 0RF Rx Instructions: DO NOT TAKE NSAIDS WITH. BEGIN TOMORROW. Carla-D 24 Hour 180-240 mg tablet extended release 24 hr 1 tab PO DAILY Qty: 10 0RF Discharge Orders: Discharge ED (Routine); Ordered 08/21/21 Ordered By: Dexter Newman Referrals: Brock Lux MD [Primary Care Provider] - Discharge Diet: Usual diet Discharge Activity: Increase activity as tolerated Patient Instructions: Corneal Abrasion (ED) Activity Restrictions/Additional Instructions: You may use the pain relieving eyedrops 1 drop every 2 hours for the next 48 hours for discomfort. Use the antibiotic eyedrops 1 drop 4 times a day for the next 7 days. Follow-up with primary care or eye neurocritical care physician in 3 days for recheck. Return to the ER for new concerns. After 3 days you should expect improvement with some mild discomfort. Coding Level of Care Code ED Factory Worker for Chg Fwd History Problem Focused Medical Decision Making Low Complexity Time Spent (min) 20
[2021-08-21] MEDS: eye irrigation 30 mL Btl EYE-RIGHT (21:46)
[2021-08-21] MEDS: fluorescein 1 mg Strip EYE-RIGHT (21:46)
[2021-08-21] MEDS: tetracaine 0.5% Op Soln 4 mL Btl 1 DROP EYE-RIGHT (21:46)
== END 2021-08-21 21:58 | disposition home or self-care (01) ==
PROVIDERS: Emergency Provider Nurse Practitioner Family; PCP Family Medicine
DX: S05.01XA Injury of conjunctiva and corneal abrasion without foreign body, right eye, initial encounter (principal); F17.210 Nicotine dependence, cigarettes, uncomplicated; X58.XXXA Exposure to other specified factors, initial encounter
CPT/HCPCS: 99283

== ENCOUNTER 2021-08-29 10:51 | Emergency (ER) | payer SELFPAY ==
[2021-08-29 11:02] VITALS: BP 113/64; PULSE 90; RESP 19; TEMP 36.9; O2SAT 97; BMI 25.7
--- NOTE | 2021-08-29 11:35 | XRR_ITS ---
PROCEDURE INFORMATION: Exam: XR Chest Exam date and time: 08/29/2021 11:35 AM Age: 46 years old Clinical indication: Cough TECHNIQUE: Imaging protocol: XR of the chest. Views: 1 view. COMPARISON: CR Chest 2 views* [id number] 07/01/2019 9:39 PM FINDINGS: Lungs: Unremarkable. No consolidation. Pleural spaces: Unremarkable. No pleural effusion. No pneumothorax. Heart/Mediastinum: Unremarkable. No cardiomegaly. Bones/joints: Unremarkable. XR/XR chest 1V portable [id number] IMPRESSION: No acute findings.
--- NOTE | 2021-08-29 11:35 | USR_ITS ---
PROCEDURE INFORMATION: Exam: US Duplex Right Lower Extremity Veins, Limited Exam date and time: 08/29/2021 11:35 AM Age: 46 years old Clinical indication: Pain; Leg, lower; Right; Additional info: Concern for dvt TECHNIQUE: Imaging protocol: Real-time Duplex ultrasound of the Right Lower Extremity with 2-D la scale, color Doppler flow and spectral waveform analysis with image documentation. Limited exam was focused on the right lower extremity veins. COMPARISON: US OB >14 Weeks [id number] 09/01/2017 12:51 PM FINDINGS: Right deep veins: Unremarkable. The common femoral, femoral, proximal profunda femoral, popliteal, and visualized calf veins are patent without thrombus. Normal Doppler waveforms. Normal compressibility and/or augmentation response. Right superficial veins: Unremarkable. Saphenofemoral junction is patent without thrombus. Soft tissues: Right popliteal fossa hypoechoic fluid collection measuring approximately 3.5 x 1.1 x 2.6 cm. US/[place] [id number] IMPRESSION: 1. No evidence of right lower extremity DVT. 2. Right popliteal fossa cyst measuring 3.5 x 1.1 x 2.6 cm.
[2021-08-29] MEDS: ketorolac 30 mg/mL INJ IVP (11:52)
[2021-08-29] MEDS: sodium chloride 0.9% 1,000 ML 999 ML IV (11:52)
[2021-08-29 12:02] LABS: Basophils # 0.1 10^3/uL (0.0-0.1); Eosinophils # 0.2 10^3/uL (0.0-0.8); Eosinophils % 3.7 %; Hematocrit 45.7 % (37.0-47.0); Hemoglobin 15.7 g/dL (11.5-15.3); Lymphocytes # 2.1 10^3/uL (0.8-4.8); Lymphocytes % 35.7 %; Mean Corpuscular HGB Conc 34.4 g/dL (30.0-36.0); Mean Corpuscular Hemoglobin 34.7 pg (28.0-34.0); Mean Corpuscular Volume 101.1 fl (81-99); Mean Platelet Volume 10.2 fL (7.4-10.4); Monocytes # 0.5 10^3/uL (0.2-0.9); Monocytes % 7.8 %; Neutrophils # 3.03 10^3/uL (1.8-7.7); Neutrophils % 51.3 %; Nucleated Red Blood Cells % 0 %; Platelet Count 194 10^3/cmm (130-400); Red Blood Count 4.52 10^6/uL (4.1-5.3); Red Cell Distribution Width 12.5 % (12.1-15.1); White Blood Count 5.9 10^3/uL (4.0-10.0)
--- NOTE | 2021-08-29 12:18 | ED_ITS ---
HPI - General Adult General: Chief complaint: General Medical Stated complaint: Cough, Congestion Time Seen by Provider: 08/29/21 11:10 History of Present Illness: Patient comes in with cold symptoms including cough, congestion, fatigue, shortness of breath. She states is been getting worse over the last few days. States she has been sick for 3 to 4 weeks and was recently put on and finished a course of antibiotics and steroids. States that she also started having pain behind her right knee yesterday. Associated symptoms: Reports dyspnea; Deny chest pain, headache(s), nausea, rash, palpitations or vomiting Review of Systems Const: Denies: fever(s) or body aches Eyes: Denies: change in vision or blurry vision ENMT: Denies: throat pain or odynophagia Card: Denies: chest pain or palpitations Resp: Reports: dyspnea and productive cough GI: Denies: abdominal pain, nausea or vomiting : Denies: flank pain or dysuria Musc: Reports: back pain; Denies: neck pain Skin/Breast: Denies: rash or pruritus Neuro: Denies: headache(s) or numbness in extremities Psych: Denies: anxiety or change in appetite Endo: Denies: polyuria or excessive sweating PFSH ED PFSH: Medical History (Updated 08/29/21 @ 13:19 by Gideon Higgins MD) Intervertebral disc disorder with radiculopathy of lumbosacral region Low back pain Surgical History History of eye prosthesis Family History Mother Diabetes Father Heart disease Arthritis Social History Smoking and tobacco status: current some day smoker Alcohol intake: never Lives independently: Yes Household members: family and children Housing: House Marital status: Single Current occupational status: unemployed History of recent travel: No Female Reproductive History: Date of last menstrual period: 09/12/19 Physical Exam Const: COMMON NORMALS: no acute distress, patient oriented x3, healthy appearing and alert HENMT: COMMON NORMALS: normocephalic and atraumatic HEAD & SCALP: normocephalic and atraumatic Eye: COMMON NORMALS: Equal, round and reactive pupils present and EOMs intact bilaterally PUPIL: Yes Equal, round and reactive pupils present Neck/C-Spine: COMMON NORMALS: full ROM and supple Resp: COMMON NORMALS: normal respiratory effort, No retractions and No use of accessory muscles Cardio: COMMON NORMALS: regular rate and regular rhythm RATE: regular rate RHYTHM: regular rhythm GI: COMMON NORMALS: Normal to inspection, nondistended, normoactive bowel sounds present, Soft to palpation and non-tender PALPATION: Yes Soft to palpation Back/Pelvis: COMMON NORMALS: thoracic and lumbar spine normal to inspection and no thoracic nor lumbar tenderness Extremity: COMMON NORMALS: normal to inspection and full ROM NARRATIVE EXTREMITY EXAM: Tenderness to palpation of the posterior right knee Neuro: COMMON NORMALS: patient oriented x3 SENSORIUM/ORIENTATION: Yes alert Psych: COMMON NORMALS: mental status grossly normal and cooperative Skin: COMMON NORMALS: no rashes or lesions noted and no wounds GENERAL SKIN EXAM: no rashes or lesions noted Course Vital Signs: Vital signs: Vital Signs Temperature 98.5 F 08/29/21 11:02 Pulse Rate 90 08/29/21 11:02 Respiratory Rate 19 H 08/29/21 11:02 Blood Pressure 113/64 08/29/21 11:02 Pulse Oximetry 97 08/29/21 11:02 [facility] - General Adult Medical Decision Making Patient comes in with cold symptoms including cough, congestion, fatigue, shortness of breath. She states is been getting worse over the last few days. States she has been sick for 3 to 4 weeks and was recently put on and finished a course of antibiotics and steroids. States that she also started having pain behind her right knee yesterday. On physical exam her lungs are clear to auscultation. She has tenderness to palpation of the posterior aspect of the right knee. Will check labs, x-ray, ultrasound for DVT, and reassess. On Reassessment I talked to the patient about the test results. Will discharge home at this time with precautions to return for worsening or changing symptom. Lab Data : 08/29/21 11:54 08/29/21 11:54 Radiology Impressions Chest X-Ray 08/29/21 11:35 IMPRESSION: No acute findings. Venous Duplex 08/29/21 11:35 IMPRESSION: 1. No evidence of right lower extremity DVT. 2. Right popliteal fossa cyst measuring 3.5 x 1.1 x 2.6 cm. Laboratory Results WBC 5.9 10^3/uL (4.0-10.0) 08/29/21 11:54 RBC 4.52 10^6/uL (4.1-5.3) 08/29/21 11:54 Hgb 15.7 g/dL (11.5-15.3) H 08/29/21 11:54 Hct 45.7 % (37.0-47.0) 08/29/21 11:54 MCV 101.1 fl (81-99) H 08/29/21 11:54 MCH 34.7 pg (28.0-34.0) H 08/29/21 11:54 MCHC 34.4 g/dL (30.0-36.0) 08/29/21 11:54 RDW 12.5 % (12.1-15.1) 08/29/21 11:54 Plt Count 194 10^3/cmm (130-400) 08/29/21 11:54 MPV 10.2 fL (7.4-10.4) 08/29/21 11:54 Neut % (Auto) 51.3 % 08/29/21 11:54 Lymph % (Auto) 35.7 % 08/29/21 11:54 [place] % (Auto) 7.8 % 08/29/21 11:54 Eos % (Auto) 3.7 % 08/29/21 11:54 Baso % (Auto) 1.0 % 08/29/21 11:54 Neut # (Auto) 3.03 10^3/uL (1.8-7.7) 08/29/21 11:54 Lymph # (Auto) 2.1 10^3/uL (0.8-4.8) 08/29/21 11:54 [place] # (Auto) 0.5 10^3/uL (0.2-0.9) 08/29/21 11:54 Eos # (Auto) 0.2 10^3/uL (0.0-0.8) 08/29/21 11:54 Baso # (Auto) 0.1 10^3/uL (0.0-0.1) 08/29/21 11:54 Nucleated RBC % (auto) 0 % 08/29/21 11:54 Nucleated RBCs # 0.0 /100WBC 08/29/21 11:54 Sodium 134 mmol/L (136-145) L 08/29/21 11:54 Potassium 4.5 mmol/L (3.5-5.1) 08/29/21 11:54 Chloride 99 mmol/L (98-107) 08/29/21 11:54 Carbon Dioxide 27 mmol/L (22-29) 08/29/21 11:54 Anion Gap 12.5 (5-19) 08/29/21 11:54 BUN 15 mg/dL (6-20) 08/29/21 11:54 Creatinine 0.7 mg/dL (0.5-0.9) 08/29/21 11:54 GFR Calculation 90.9 mL/min (90-130) 08/29/21 11:54 Glucose 67 mg/dL (65-115) 08/29/21 11:54 Calculated Osmolality 277 mOsm/kg (285-295) L 08/29/21 11:54 Calcium 9.6 mg/dL (8.5-10.5) 08/29/21 11:54 Total Bilirubin 0.3 mg/dL (0.15-1.2) 08/29/21 11:54 AST 67 U/L (0-32) H 08/29/21 11:54 ALT 95 U/L (0-33) H 08/29/21 11:54 Alkaline Phosphatase 95 IU/L (35-105) 08/29/21 11:54 Total Protein 7.0 g/dL (6.6-8.7) 08/29/21 11:54 Albumin 4.2 g/dL (3.5-5.2) 08/29/21 11:54 Globulin 2.8 g/dL (1.3-4.6) 08/29/21 11:54 Discharge Plan Discharge Patient Disposition: Home Clinical Impression: Viral illness, Negron's cyst of knee Condition: Stable Prescriptions: No Action gabapentin 300 mg capsule 300 mg PO TID 0RF ibuprofen 800 mg tablet 800 mg PO TID PRN0RF loratadine 10 mg capsule 10 mg PO ONCE 0RF promethazine 25 mg tablet 25 mg PO ONCE PRN0RF buprenorphine HCl 2 mg tablet, sublingual 4 mg SUBLINGUAL DAILY 0RF buprenorphine HCl 8 mg tablet, sublingual 16 mg SUBLINGUAL DAILY 0RF tobramycin-dexamethasone 0.3-0.1 % drops,suspension 1 drp ophthalmic (eye) TID 5 Days Qty: 5 0RF cyclobenzaprine 10 mg tablet 10 mg PO BID PRN (Reason: muscle spasm) 7 Days Qty: 7 0RF Ventolin HFA 90 mcg/actuation HFA aerosol inhaler 2 inh inhalation Q6H PRN (Reason: shortness of breath or wheezing) Qty: 6.7 0RF Celebrex 50 mg capsule 50 mg PO BID Qty: 10 0RF Rx Instructions: DO NOT TAKE NSAIDS WITH. BEGIN TOMORROW. Carla-D 24 Hour 180-240 mg tablet extended release 24 hr 1 tab PO DAILY Qty: 10 0RF Discharge Orders: Discharge ED (Routine); Ordered 08/29/21 Ordered By: Gideon Higgins Referrals: Brock Lux MD [Primary Care Provider] - Coding Level of Care Code ED Stoker Erector And Servicer for Chg Fwd Exam Comprehensive
[2021-08-29 12:27] LABS: Alanine Aminotransferase 95 U/L (0-33); Albumin Level 4.2 g/dL (3.5-5.2); Alkaline Phosphatase 95 IU/L (35-105); Blood Urea Nitrogen 15 mg/dL (6-20); Calcium 9.6 mg/dL (8.5-10.5); Carbon Dioxide 27 mmol/L (22-29); Chloride 99 mmol/L (98-107); Globulin 2.8 g/dL (1.3-4.6); Glomerular Filtration Rate 90.9 mL/min (90-130); Glucose 67 mg/dL (65-115); Osmolality Calculated 277 mOsm/kg (285-295); Sodium 134 mmol/L (136-145); Total Bilirubin 0.3 mg/dL (0.15-1.2)
[2021-08-29 12:42] LABS: Anion Gap 12.5 (5-19); Potassium 4.5 mmol/L (3.5-5.1)
[2021-08-29 12:43] LABS: Aspartate Amino Transferase 67 U/L (0-32)
[2021-08-29 13:26] VITALS: BP 91/57; PULSE 63; RESP 16; O2SAT 99
[2021-08-29 13:29] VITALS: BP 101/63
== END 2021-08-29 13:33 | disposition home or self-care (01) ==
PROVIDERS: Emergency Provider Emergency Medicine; PCP Family Medicine
DX: B34.9 Viral infection, unspecified (principal); M71.21 Synovial cyst of popliteal space [Baker], right knee; M79.661 Pain in right lower leg; F17.200 Nicotine dependence, unspecified, uncomplicated
CPT/HCPCS: 71045; 80053; 85025; 93971; 96361; 96374; 99284; J1885; J7030

== ENCOUNTER 2021-10-29 12:16 | Emergency (ER) | payer SELFPAY ==
[2021-10-29 12:30] VITALS: BP 124/73; PULSE 93; RESP 16; TEMP 37; O2SAT 95; BMI 25.7
--- NOTE | 2021-10-29 13:03 | ED_ITS ---
HPI - URI/Sore Throat General: Chief Complaint: Dental/Oral Stated Complaint: sinus congestion, ear pain, swollen tongue and thr Time Seen by Provider: 10/29/21 12:44 History of Present Illness: Patient is a 46-year-old female comes to the ED with upper respiratory symptoms. Symptoms started approximately week ago. She has been having nasal congestion, sinus pain and pressure, bilateral ear pain and a productive cough with a yellow sputum. She endorses some nausea, but denies any episodes of emesis and has been able to keep food and fluids down. Patient also says approximately 2 days ago she started developing white patches that are sore on her tongue. She says she has had this once before and it was thrush. She had 1 dose of oral nystatin mouth rinse and she did it at home yesterday and her thrush improved today. Patient did see urgent care approximately 3 days ago and they put her on Augmentin. She does not feel like it is helping her pain sinus problems. Associated symptoms: Reports ear or mastoid pain, nasal congestion and sinus pain; Deny abdominal pain, chills, chest pain, diarrhea, fever(s), headache(s), nausea or vomiting Review of Systems Const: Denies: fever(s), chills or fatigue Eyes: Denies: change in vision or eye discomfort ENMT: Reports: oral sores (White sore patches on tongue), ear or mastoid pain, nasal discharge, nasal congestion and sinus pain; Denies: throat pain or odynophagia Card: Denies: chest pain, palpitations, edema, swelling of feet/ankles, dyspnea on exertion or orthopnea Resp: Denies: dyspnea, productive cough or non-productive cough GI: Denies: abdominal pain, nausea, vomiting, diarrhea, constipation or hematochezia : Denies: flank pain, dysuria or hematuria Musc: Denies: neck pain, back pain or extremity swelling Skin/Breast: Denies: rash or new lesions Neuro: Denies: headache(s), numbness in extremities or weakness in extremities PFSH ED PFSH: Medical History Intervertebral disc disorder with radiculopathy of lumbosacral region Low back pain Surgical History History of eye prosthesis Family History Mother Diabetes Father Heart disease Arthritis Social History Smoking and tobacco status: current every day smoker Alcohol intake: never Lives independently: Yes Household members: family and children Housing: House Marital status: Single Current occupational status: unemployed History of recent travel: No Female Reproductive History: Date of last menstrual period: 09/12/19 Physical Exam Const: COMMON NORMALS: no acute distress, patient oriented x3 and alert GENERAL APPEARANCE: cooperative and comfortable HENMT: COMMON NORMALS: normocephalic and EAC's normal HEAD & SCALP: normocephalic EXTERNAL AUDITORY CANAL: EAC's normal TYMPANIC MEMBRANE: TM abnormal TM laterality: bilateral erythematous and with fluid behind the TM MOUTH: Normal oral and palatal mucosa present and tongue abnormal (White sore/tender patches on tongue) THROAT: posterior oropharynx normal and uvula midline Eye: COMMON NORMALS: Equal, round and reactive pupils present and conjunctivae normal CONJUNCTIVA: Yes conjunctivae normal PUPIL: Yes Equal, round and reactive pupils present Neck/C-Spine: COMMON NORMALS: supple GENERAL: Yes normal visual inspection Resp: COMMON NORMALS: normal respiratory effort, No retractions, No use of accessory muscles and clear to auscultation bilaterally AUSCULTATION: clear to auscultation bilaterally Cardio: COMMON NORMALS: regular rate, regular rhythm, S1 normal heart sound present, S2 normal heart sound present, No gallops present (Cardio), No clicks present (Cardio), No murmurs present (Cardio) and Peripheral pulses 2+ throughout RATE: regular rate RHYTHM: regular rhythm HEART SOUNDS: S1 normal heart sound present and S2 normal heart sound present PERIPHERAL PULSES: Peripheral pulses 2+ throughout GI: COMMON NORMALS: Normal to inspection, nondistended, normoactive bowel sounds present, Soft to palpation, non-tender and no masses PALPATION: Yes Soft to palpation : COMMON NORMALS: Yes no CVA tenderness BLADDER/KIDNEY EXAM: Yes no CVA tenderness Back/Pelvis: COMMON NORMALS: no CVA tenderness Extremity: COMMON NORMALS: normal to inspection Neuro: COMMON NORMALS: patient oriented x3 and moves all extremities SENSORIUM/ORIENTATION: Yes alert Skin: GENERAL SKIN EXAM: dry skin Course Vital Signs: Vital signs: Vital Signs Temperature 98.6 F 10/29/21 12:30 Pulse Rate 93 10/29/21 12:30 Respiratory Rate 16 10/29/21 12:30 Blood Pressure 124/73 10/29/21 12:30 Pulse Oximetry 95 10/29/21 12:30 [facility] - URI/Sore Throat Medical Decision Making Patient is a 46-year-old female comes to the ED with bilateral ear pain, upper respiratory symptoms and white painful patches on tongue. Vitals are stable. She does have oral candidiasis on tongue and bilateral otitis media. Rest of her exam is benign. Patient diagnosed with otitis media, oral candidiasis and upper respiratory infection with cough and congestion. Chest x-ray showed no acute findings. She was discharged home with a prescription for an antibiotic, steroid, nystatin mouth rinse and antinausea medicine. She was told to follow- up with her PCP in the next week for reevaluation. Return to ED precautions given. Patient understood agree with plan. Lab Data Radiology Impressions Chest X-Ray 10/29/21 13:15 IMPRESSION: Unremarkable chest radiograph. Discharge Plan Discharge Patient Disposition: Home Clinical Impression: Oral candidiasis, Upper respiratory infection with cough and congestion Otitis media Qualifiers: Otitis media type: serous Chronicity: acute Laterality: bilateral Recurrence: non-recurrent Qualified Code(s): H65.03 - Acute serous otitis media, bilateral Condition: Stable Prescriptions: New prednisone 20 mg tablet 20 mg PO BID 5 Days Qty: 10 0RF nystatin 100,000 unit/mL suspension 4 ml PO QID 7 Days Qty: 112 0RF Rx Instructions: swish and spit cefdinir 300 mg capsule 300 mg PO BID 10 Days Qty: 20 0RF ondansetron 4 mg tablet,disintegrating 4 mg PO Q8H PRN (Reason: nausea and vomiting) Qty: 15 0RF No Action gabapentin 300 mg capsule 300 mg PO TID 0RF buprenorphine HCl 2 mg tablet, sublingual 4 mg SUBLINGUAL DAILY 0RF buprenorphine HCl 8 mg tablet, sublingual 16 mg SUBLINGUAL DAILY 0RF ketorolac 10 mg tablet 10 mg PO TID PRN (Reason: pain) 5 Days Qty: 15 0RF Ventolin HFA 90 mcg/actuation HFA aerosol inhaler 2 inh inhalation Q6H PRN (Reason: shortness of breath or wheezing) Qty: 6.7 0RF prednisone 20 mg tablet See Rx Instructions .Route .COMPLEX Qty: 20 0RF Rx Instructions: 3 tabs x 3 days, then 2 tabs x 3 days, then 1 tab x 3 days, then 1/2 tab x 3 days. hydrocodone-acetaminophen 5-325 mg tablet 1 tab PO Q8H PRN (Reason: pain) 3 Days Qty: 7 0RF amoxicillin-pot clavulanate 875-125 mg tablet 1 tab PO BID 7 Days Qty: 14 0RF Discharge Orders: Discharge ED (Routine); Ordered 10/29/21 Ordered By: Yoan Cleary Referrals: Brock Lux MD [Primary Care Provider] - Discharge Diet: Regular Discharge Activity: Increase activity as tolerated Patient Instructions: Otitis Media - Adult, Oral Candidiasis (ED), Upper Respiratory Infection - Adult Activity Restrictions/Additional Instructions: Follow-up with medical provider as directed in the next 5 to 7 days reevaluation.Take medications as prescribed. Return to the ER or your medical provider if condition worsens. Please read and understand discharge instructions. Thank you for choosing [facility] for your healthcare needs today. Please realize this is an emergency room and that we are providing you with a medical screening exam and this may not be complete and all inclusive of all the testing and or work up that you may need to determine your ailment or severity of your illness. It is very important that you follow up as instructed or that you return to the Emergency Department should you have concerns or if your condition changes or worsens in any way. Coding Level of Care Code ED Supervisor [employer] Supply for Julianna Fwyaneth Exam Comprehensive
--- NOTE | 2021-10-29 13:15 | XR_ITS ---
WS: [id number] Exam: XR chest 1V portable [id number] Date/Time of Exam: 10/29/2021 1:26 PM Reason For Exam: productive cough Comparison 08/29/2021. Findings: The lungs are clear and fully expanded. Costophrenic angles are sharp. No infiltrates. Bronchovascula r relief appears normal. Cardiac silhouette is unremarkable. Bony elements are intact. XR/XR chest 1V portable [id number] IMPRESSION: Unremarkable chest radiograph.
== END 2021-10-29 14:26 | disposition home or self-care (01) ==
PROVIDERS: Emergency Provider Physician Assistant; PCP Family Medicine
DX: B37.0 Candidal stomatitis (principal); J06.9 Acute upper respiratory infection, unspecified; H65.03 Acute serous otitis media, bilateral; F17.200 Nicotine dependence, unspecified, uncomplicated
CPT/HCPCS: 71045; 99281

== ENCOUNTER → 2022-01-14 17:48 | Outpatient (BNVA) | payer SELFPAY | PROVIDERS: PCP Family Medicine; Visit Provider Registered Nurse Neonatal Intensive Care | DX: M79.672 Pain in left foot (principal) | CPT/HCPCS: 73630 ==

== ENCOUNTER 2022-01-15 05:56 | Emergency (ER) | payer SELFPAY ==
[2022-01-15 06:09] VITALS: BP 122/78; PULSE 81; RESP 17; TEMP 36.6; O2SAT 98; BMI 26.7
[2022-01-15 06:15] VITALS: BP 122/78; PULSE 81; RESP 17; TEMP 36.6; O2SAT 98
--- NOTE | 2022-01-15 06:15 | XRR_ITS ---
PROCEDURE INFORMATION: Exam: XR Right Shoulder Exam date and time: 01/15/2022 6:25 AM Age: 46 years old Clinical indication: Injury or trauma; Other: Wood fell onto her; Blunt trauma (contusions or hematomas); Right; Injury details: Had a rink of wood fall onto her yesterday twisted shoulder; Additional info: Pain TECHNIQUE: Imaging protocol: Radiologic exam of the Right shoulder. Views: 2 or more views. COMPARISON: CR XR chest 1V portable [id number] 10/29/2021 1:26 PM FINDINGS: Bones/joints: Visualized portions of the clavicle normal. Mild degenerative changes of the acromioclavicular joint. Glenohumeral joint normal. Scapula normal. Visualized ribs and visualized pulmonary parenchyma normal. Coracoid process normal Soft tissues: Normal. XR/XR shoulder RT min 2V* [id number] IMPRESSION: Mild degenerative changes of the acromioclavicular joint.
--- NOTE | 2022-01-15 06:23 | W.ED.EXTPRO ---
HPI - Extremity Problem General: Chief complaint: Extremity Injury, Lower Stated complaint: L leg injury, R shoulder pain Time Seen by Provider: 01/15/22 06:15 Source: patient Mode of arrival: ambulatory Limitations: no limitations History of Present Illness: 46-year-old female presents emergency room with complaint of left foot pain right shoulder pain sinus congestion and cough she has had for the last several days. Later in the visit she states she has been taking doxycycline from an old prescription for the last week. Patient is a smoker. She has had a productive cough with significant sinus facial pain and pressure. Cough is a change from her baseline sputum. She has not had any fever sweats or chills she has noticed increased wheezing as well and complains of shortness of breath she denies any chest pain. Patient had some stacked wood fall on her left foot while she was trying to avoid the fall she strained her right shoulder. She has a small abrasion on the dorsum of her left foot and is complaining of shooting burning pain over the scapula. She is not noticed any skin rash. She still has full range of motion in her right shoulder with no weakness there is no pain radiating from her neck into her fingertips. She has been able to ambulate on her left foot but has some discomfort there she was seen yesterday at [facility] urgent care had plain films done of the foot. These were reviewed today. MD Complaint: extremity pain (Left foot) and joint pain (Right shoulder) Onset (ago): hour(s) Pain Consistency: constant Location: left (Foot) and right (Shoulder) Quality: burning and sharp Radiation: none Relieving factors: rest Exacerbating factors: range of motion, weight bearing and walking Associated symptoms: Reports short of breath; Deny arthralgias, chest pain, fever(s), myalgias or rash Review of Systems Const: Denies: fever(s), chills, fatigue or malaise ENMT: Denies: throat pain, ear or mastoid pain, nasal discharge or nasal congestion Card: Denies: chest pain, palpitations, irregular heart rhythm, edema, dyspnea on exertion or orthopnea Resp: Reports: dyspnea and productive cough; Denies: non-productive cough GI: Denies: abdominal pain, nausea, vomiting, hematemesis, coffee ground emesis, diarrhea, constipation, bloating, hematochezia or melena : Denies: flank pain, difficulty voiding, dysuria, urinary frequency or urinary urgency Musc: Reports: extremity pain, extremity swelling (Left foot) and joint pain Skin/Breast: Denies: rash PFSH ED PFSH: Medical History Allergic contact dermatitis Encounter for long-term (current) use of NSAIDs Encounter for long-term opiate analgesic use Intervertebral disc disorder with radiculopathy of lumbosacral 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 Low back pain 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Surgical History History of eye prosthesis Family History Mother Diabetes Father Heart disease Arthritis Social History Smoking and tobacco status: current some day smoker Alcohol intake: never Lives independently: Yes Household members: family and children Housing: House Marital status: Single Current occupational status: unemployed History of recent travel: No Female Reproductive History: Date of last menstrual period: 09/12/19 Physical Exam Const: COMMON NORMALS: no acute distress GENERAL APPEARANCE: cooperative and comfortable ORIENTATION/CONSCIOUSNESS: Yes awake, Yes oriented to person, Yes oriented to place and Yes oriented to time HENMT: COMMON NORMALS: normocephalic, atraumatic, hearing grossly normal bilaterally, moist oral mucous membranes and oropharynx normal HEAD & SCALP: normocephalic and atraumatic FACE & SINUS: sinus tenderness maxillary Neck/C-Spine: COMMON NORMALS: no JVD Resp: COMMON NORMALS: normal respiratory effort, No retractions and No use of accessory muscles AUSCULTATION: rhonchi (Right base) and wheezes Cardio: COMMON NORMALS: no JVD, regular rate, regular rhythm and No murmurs present (Cardio) RATE: regular rate RHYTHM: regular rhythm GI: COMMON NORMALS: Soft to palpation and No hepatosplenomegaly present AUSCULTATION: Yes normoactive bowel sounds PALPATION: Yes Soft to palpation, No Tenderness to palpation present (GI), No Guarding due to palpation present (GI) and Yes No hepatosplenomegaly present Extremity: COMMON NORMALS: capillary refill normal, no clubbing, cyanosis or edema, no calf tenderness and no pedal edema OTHER: Superficial abrasion on the dorsum of the left foot mild soft tissue swelling no induration no sign of cellulitis no obvious deformity. Examination of the right shoulder negative impingement sign full range of motion without crepitus or deformity palpation along the clavicle unremarkable. Neuro: SENSORIUM/ORIENTATION: Yes oriented to person, Yes oriented to place and Yes oriented to time Skin: COMMON NORMALS: no rashes or lesions noted GENERAL SKIN EXAM: no rashes or lesions noted Course Vital Signs: Vital signs: Vital Signs Temperature 97.9 F 01/15/22 06:15 Pulse Rate 81 01/15/22 06:15 Respiratory Rate 17 01/15/22 06:15 Blood Pressure 122/78 01/15/22 06:15 Pulse Oximetry 98 01/15/22 06:15 MDM - Extremity (Nontraumatic) Medical Decision Making X-ray from urgent care reviewed no acute fracture was not repeated. Her only pain is to the foot. Examination of her right shoulder is unremarkable and x-rays not show anything acute. Patient given anti-inflammatories, right foot wrapped elevate foot as needed weightbearing as tolerated. For upper respiratory symptoms initially were going to give her doxycycline but states she has been taking that for a week already switch her to Augmentin also put her on Medrol Dosepak and refilled her albuterol follow-up with primary care if not improving. Patient cannot recall her last tetanus shot tetanus updated at this visit Medical Records I reviewed the patient's medical records. Lab Data I reviewed the patient's lab results. Discharge Plan Discharge Patient Disposition: Home Clinical Impression: Muscle strain of right shoulder, Foot pain, right, Sinusitis, COPD with acute exacerbation Condition: Stable Prescriptions: New diclofenac sodium 75 mg tablet,delayed release (DR/EC) 75 mg PO Q12H PRN (Reason: pain) Qty: 20 0RF albuterol sulfate 90 mcg/actuation HFA aerosol inhaler 2 inh INHALATION Q4H PRN (Reason: shortness of breath or wheezing) Qty: 18 0RF Augmentin 500-125 mg tablet 1 tab PO TID Qty: 30 0RF Medrol (Bg) 4 mg tablets,dose pack See Rx Instructions .ROUTE .COMPLEX Qty: 21 0RF Rx Instructions: orally per package directions No Action gabapentin 300 mg capsule 300 mg PO TID 0RF buprenorphine HCl 8 mg tablet, sublingual 16 mg SUBLINGUAL DAILY 0RF Ventolin HFA 90 mcg/actuation HFA aerosol inhaler 2 inh inhalation Q6H PRN (Reason: shortness of breath or wheezing) Qty: 6.7 0RF triamcinolone acetonide 0.5 % cream 1 applic topical DAILY Qty: 15 1RF Discharge Orders: Discharge ED (Routine); Ordered 01/15/22 Ordered By: Duong Kiser Referrals: Brock Lux MD [Primary Care Provider] - Discharge Diet: Usual diet Discharge Activity: Increase activity as tolerated Activity Restrictions/Additional Instructions: Follow-up with your primary care doctor if not improving. Coding Level of Care Code ED Production Support Analyst for Julianna Irene
[2022-01-15] MEDS: ketorolac 30 mg/mL INJ 60 MG IM (06:38)
[2022-01-15] MEDS: tetanus-dipt-pertussis 0.5 mL SDV IM (06:45)
[2022-01-15 06:47] VITALS: BP 127/75; PULSE 79; RESP 17; TEMP 36.6; O2SAT 98
== END 2022-01-15 06:48 | disposition home or self-care (01) ==
PROVIDERS: Emergency Provider Family Medicine; PCP Family Medicine
DX: S46.911A Strain of unspecified muscle, fascia and tendon at shoulder and upper arm level, right arm, initial encounter (principal); M79.671 Pain in right foot; J32.9 Chronic sinusitis, unspecified; J44.1 Chronic obstructive pulmonary disease with (acute) exacerbation; X58.XXXA Exposure to other specified factors, initial encounter; Z23 Encounter for immunization
CPT/HCPCS: 73030; 90471; 90715; 96372; 99284; J1885

== ENCOUNTER 2022-01-18 19:44 | Emergency (ER) | payer SELFPAY ==
[2022-01-18 19:53] VITALS: BP 134/73; PULSE 89; RESP 17; TEMP 36.6; O2SAT 95; BMI 26.7
--- NOTE | 2022-01-18 21:21 | W.ED.BACK ---
HPI - Back Pain/Injury General: Chief Complaint: Back Pain/Injury Stated Complaint: Lower back pain Time Seen by Provider: 01/18/22 21:19 History of Present Illness: 46-year-old female comes in today for complaints of low back pain radiating down the left leg. Patient reports she had to move a rank of wood on Tuesday and since then she is having worsening back pain. Patient appears well. Patient appears in no acute distress. Patient appears in mild to moderate pain. 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 Low back pain 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Surgical History History of eye prosthesis Family History Mother Diabetes Father Heart disease Arthritis Social History Smoking and tobacco status: current some day smoker Alcohol intake: never Lives independently: Yes Household members: family and children Housing: House Marital status: Single Current occupational status: unemployed History of recent travel: No Female Reproductive History: Date of last menstrual period: 09/12/19 Physical Exam Const: COMMON NORMALS: alert HENMT: COMMON NORMALS: normocephalic HEAD & SCALP: normocephalic Neck/C-Spine: COMMON NORMALS: full ROM Resp: COMMON NORMALS: normal respiratory effort and clear to auscultation bilaterally AUSCULTATION: clear to auscultation bilaterally Cardio: COMMON NORMALS: regular rate RATE: regular rate Back/Pelvis: THORACIC SPINE/UPPER BACK: No thoracic spinal tenderness and Yes paraspinal muscle tenderness LUMBAR SPINE/LOWER BACK: No lumbar spinal tenderness, Yes paraspinal muscle tenderness and Yes paraspinal muscle spasm Lumbar paraspinal muscle spasm: left Extremity: COMMON NORMALS: full ROM Neuro: SENSORIUM/ORIENTATION: Yes alert Skin: COMMON NORMALS: no rashes or lesions noted GENERAL SKIN EXAM: no rashes or lesions noted Course Vital Signs: Vital signs: Vital Signs Temperature 98 F 01/18/22 19:53 Pulse Rate 89 01/18/22 19:53 Respiratory Rate 17 01/18/22 19:53 Blood Pressure 134/73 01/18/22 19:53 Pulse Oximetry 95 01/18/22 19:53 MDM - Back Pain/Injury Medical Decision Making 46-year-old female comes in today with complaints of low back pain radiating down left leg. On exam patient has full range of motion of extremities. Patient has no spinal tenderness on palpation. Patient does have paraspinous muscle tenderness with spasm in the left lower back. Differential diagnosis includes intervertebral disc disease, facet arthropathy, muscle strain. Patient had no falls or injuries. No signs of cauda equina syndrome. Reviewed exam with patient recommended diclofenac and tizanidine for pain and discomfort. Patient was given a Toradol injection and 1 hydrocodone tablet in the emergency department. Discharge Plan Discharge Patient Disposition: Home Clinical Impression: Sciatica Qualifiers: Laterality: left Qualified Code(s): M54.32 - Sciatica, left side Condition: Stable Prescriptions: New tizanidine 4 mg tablet 4 mg PO Q8H PRN (Reason: muscle spasticity) Qty: 14 0RF Continued diclofenac sodium 75 mg tablet,delayed release (DR/EC) 75 mg PO Q12H PRN (Reason: pain) Qty: 20 0RF No Action gabapentin 300 mg capsule 300 mg PO TID 0RF buprenorphine HCl 8 mg tablet, sublingual 16 mg SUBLINGUAL DAILY 0RF Ventolin HFA 90 mcg/actuation HFA aerosol inhaler 2 inh inhalation Q6H PRN (Reason: shortness of breath or wheezing) Qty: 6.7 0RF triamcinolone acetonide 0.5 % cream 1 applic topical DAILY Qty: 15 1RF albuterol sulfate 90 mcg/actuation HFA aerosol inhaler 2 inh INHALATION Q4H PRN (Reason: shortness of breath or wheezing) Qty: 18 0RF Augmentin 500-125 mg tablet 1 tab PO TID Qty: 30 0RF Medrol (Bg) 4 mg tablets,dose pack See Rx Instructions .ROUTE .COMPLEX Qty: 21 0RF Rx Instructions: orally per package directions Discharge Orders: Discharge ED (Routine); Ordered 01/18/22 Ordered By: Dexter Newman Referrals: Brock Lux MD [Primary Care Provider] - Discharge Diet: Usual diet Discharge Activity: Increase activity as tolerated Patient Instructions: Musculoskeletal Pain (ED) Activity Restrictions/Additional Instructions: Activity as tolerated. Gentle stretching and range of motion exercises. Drink plenty of fluids. Take diclofenac 1 tablet twice a day for the next 10 days for pain and inflammation. Use acetaminophen for further pain relief. Use tizanidine for muscle spasms. Coding Level of Care Code ED Tour Bus Driver/Guide for Julianna Irene
[2022-01-18] MEDS: ketorolac 30 mg/mL INJ IM (21:35)
[2022-01-18] MEDS: HYDROcodone-acetaminophen 5-325 mg Tablet 1 TAB PO (21:35)
== END 2022-01-18 21:37 | disposition home or self-care (01) ==
PROVIDERS: Emergency Provider Nurse Practitioner Family; PCP Family Medicine
DX: M54.32 Sciatica, left side (principal); F17.210 Nicotine dependence, cigarettes, uncomplicated
CPT/HCPCS: 96372; 99284; J1885

== ENCOUNTER 2022-02-19 16:26 | Emergency (ER) | payer MEDICAID, SELFPAY ==
[2022-02-19 16:54] VITALS: BP 117/66; PULSE 88; RESP 18; TEMP 36.7; O2SAT 97; BMI 28.8
--- NOTE | 2022-02-19 17:14 | W.ED.SKABFB ---
HPI - Skin/Abscess/Foreign Bdy General: Chief complaint: Skin/Abscess/Foreign Body Stated complaint: boil, back pain, congestion Time Seen by Provider: 02/19/22 17:13 History of Present Illness: 46-year-old female comes in today with concerns for a abscess to the left inguinal area and low back pain. Patient does have chronic low back pain in which she takes baclofen and gabapentin for. Patient reports for the last 2 days the pain has been worse. Patient also has a sore to her left inguinal area that started 3 days ago. Patient has been using. On the area with increasing pain and discomfort. Review of Systems General: Reports: 10 or more systems reviewed and unremarkable except in HPI and below Card: Denies: chest pain Resp: Denies: dyspnea GI: Denies: abdominal pain Musc: Reports: back pain Skin/Breast: Reports: new lesions PFSH ED PFSH: Medical History Allergic contact dermatitis Encounter for long-term (current) use of NSAIDs Encounter for long-term opiate analgesic use Intervertebral disc disorder with radiculopathy of lumbosacral region [facility] (current) use of opiate analgesic Low back pain 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Surgical History History of eye prosthesis Family History Mother Diabetes Father Heart disease Arthritis Social History Smoking and tobacco status: former smoker Alcohol intake: never Lives independently: Yes Household members: family and children Housing: House Marital status: Single Current occupational status: unemployed History of recent travel: No Female Reproductive History: Date of last menstrual period: 02/08/22 Physical Exam Const: COMMON NORMALS: alert HENMT: COMMON NORMALS: normocephalic HEAD & SCALP: normocephalic Neck/C-Spine: COMMON NORMALS: full ROM Resp: COMMON NORMALS: normal respiratory effort Cardio: COMMON NORMALS: regular rate RATE: regular rate Back/Pelvis: THORACIC SPINE/UPPER BACK: No thoracic spinal tenderness LUMBAR SPINE/LOWER BACK: No lumbar spinal tenderness and Yes paraspinal muscle tenderness Lumbar paraspinal muscle tenderness: right Neuro: SENSORIUM/ORIENTATION: Yes alert Skin: LESIONS: lesion noted (Left inguinal area with 2 cm surrounding redness no centralized fluctuance) Course Vital Signs: Vital signs: Vital Signs Temperature 98.1 F 02/19/22 16:54 Pulse Rate 88 02/19/22 16:54 Respiratory Rate 18 02/19/22 16:54 Blood Pressure 117/66 02/19/22 16:54 Pulse Oximetry 97 02/19/22 16:54 Oxygen Delivery Me thod 02/19/22 16:54 MDM - Skin/Abscess/Foreign Bdy Medicial Decision Making 46-year-old female comes in today with complaints of a abscess to the left inguinal area and aggravation of her sciatica. On exam patient appears nontoxic. Patient has some muscle tenderness in the right side of her low back. Patient reports pain going down her right leg. Also note a papular type lesion to the left inguinal area with 2 cm surrounding redness. No fluctuance or significant swelling is noted to the lesion. Differential diagnosis includes but not limited to malingering, folliculitis, abscess, intervertebral disc disease, facet arthropathy, lumbar radiculopathy. Patient be treated with antibiotics for her probable infected hair follicle with some mild surrounding cellulitis. No signs of significant abscesses noted at this time. Recommended stopping the use of Prid and using warm moist packs and the medications as directed. For patient's low back we will give her a short burst of diclofenac for the next 7 to 10 days along with 5-day burst of prednisone as she reports this usually helps patient will also continue with her routine gabapentin and baclofen. Discharge Plan Discharge Patient Disposition: Home Clinical Impression: Folliculitis Sciatica Qualifiers: Laterality: right Qualified Code(s): M54.31 - Sciatica, right side Condition: Stable Prescriptions: New mupirocin 2 % ointment 1 applic topical BID Qty: 22 0RF prednisone 20 mg tablet 20 mg PO BID 5 Days Qty: 10 0RF diclofenac sodium 75 mg tablet,delayed release (DR/EC) 75 mg PO BID Qty: 20 0RF clindamycin HCl 300 mg capsule 300 mg PO TID 7 Days Qty: 21 0RF No Action gabapentin 300 mg capsule 300 mg PO TID buprenorphine HCl 8 mg tablet, sublingual 16 mg SUBLINGUAL DAILY Ventolin HFA 90 mcg/actuation HFA aerosol inhaler 2 inh inhalation Q6H PRN (Reason: shortness of breath or wheezing) Qty: 6.7 0RF triamcinolone acetonide 0.5 % cream 1 applic topical DAILY Qty: 15 1RF prednisone 20 mg tablet 60 mg PO DAILY Qty: 15 0RF albuterol sulfate 90 mcg/actuation HFA aerosol inhaler 2 inh INHALATION Q4H PRN (Reason: shortness of breath or wheezing) Qty: 18 0RF diclofenac sodium 75 mg tablet,delayed release (DR/EC) 75 mg PO Q12H PRN (Reason: pain) Qty: 20 0RF tizanidine 4 mg tablet 4 mg PO Q8H PRN (Reason: muscle spasticity) Qty: 14 0RF Discharge Orders: Discharge ED (Routine); Ordered 02/19/22 Ordered By: Dexter Newman Referrals: Brock Lux MD [Primary Care Provider] - Discharge Diet: Usual diet Discharge Activity: Increase activity as tolerated Patient Instructions: Sciatica (ED), Folliculitis (ED) Activity Restrictions/Additional Instructions: Avoid picking or lancing the wound. Use warm moist packs to the wound. Apply antibiotic ointment twice daily to the wound. Follow-up with primary care in 3 to 5 days for recheck. Return to ER for worsening swelling and redness. Sciatica is often self-limiting and will recover on its own within 7 to 10 days back to your normal baseline. Use medication as directed. Avoid aggravating movement. Follow-up with primary care in 1 week. Return to ER for worsening symptoms such as fever greater than 100.4, persistent nausea and vomiting, loss of bowel or bladder control. Coding Level of Care Code ED Body Press Operator for Julianna Irene
[2022-02-19] MEDS: ketorolac 30 mg/mL INJ IM (17:59)
[2022-02-19] MEDS: clindamycin 150 mg Capsule 300 MG PO (18:01)
[2022-02-19] MEDS: predniSONE 20 mg Tablet PO (18:01)
[2022-02-19 18:24] VITALS: PULSE 75; RESP 16; O2SAT 95
== END 2022-02-19 18:27 | disposition home or self-care (01) ==
PROVIDERS: Emergency Provider Nurse Practitioner Family; PCP Family Medicine
DX: L73.9 Follicular disorder, unspecified (principal); M54.31 Sciatica, right side; Z87.891 Personal history of nicotine dependence
CPT/HCPCS: 96372; 99284; J1885; J7512

== ENCOUNTER 2022-03-19 01:01 | Emergency (ER) | payer MEDICAID, SELFPAY ==
[2022-03-19 01:04] VITALS: BP 142/80; PULSE 85; RESP 18; TEMP 36.7; O2SAT 96; BMI 29.8
--- NOTE | 2022-03-19 01:20 | W.ED.NECK ---
HPI - Neck Pain/Injury General: Chief Complaint: Neck Pain/Injury Stated Complaint: neck and face pain/ swelling Time Seen by Provider: 03/19/22 01:06 Source: patient Mode of arrival: ambulatory Limitations: no limitations History of Present Illness: 46-year-old female states been having upper back and right neck pain throughout the night. She says that sharp pain hurts where she and she moves her arm or her neck. She denies any fever denies any specific injury denies any difficulty swallowing. She denies any chest pain. Associated symptoms: Denies headache(s) or nausea Review of Systems Const: Denies: fever(s), chills, body aches or change in appetite Eyes: Denies: blurry vision or eye discomfort ENMT: Denies: throat pain or dental pain Card: Denies: chest pain Resp: Denies: dyspnea GI: Denies: abdominal pain, nausea, vomiting or diarrhea : Denies: dysuria Musc: Reports: neck pain; Denies: back pain Skin/Breast: Denies: rash Neuro: Denies: headache(s) Psych: Denies: depression Roberto Carlos/Lymph: Denies: easy bruising All/Imm: Denies: urticaria PFSH ED PFSH: Medical History Allergic contact dermatitis Encounter for long-term (current) use of NSAIDs Encounter for long-term opiate analgesic use Intervertebral disc disorder with radiculopathy of lumbosacral 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 Low back pain 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Surgical History History of eye prosthesis Family History Mother Diabetes Father Heart disease Arthritis Social History Smoking and tobacco status: former smoker Alcohol intake: never Lives independently: Yes Household members: family and children Housing: House Marital status: Single Current occupational status: unemployed History of recent travel: No Female Reproductive History: Date of last menstrual period: 02/08/22 Physical Exam Const: COMMON NORMALS: no acute distress, patient oriented x3 and healthy appearing HENMT: COMMON NORMALS: normocephalic and atraumatic HEAD & SCALP: normocephalic and atraumatic Eye: COMMON NORMALS: conjunctivae normal CONJUNCTIVA: Yes conjunctivae normal Neck/C-Spine: COMMON NORMALS: full ROM and supple GENERAL: Yes trachea midline, No anterior neck swelling and No lymphadenopathy OTHER: Tenderness over right trapezius muscle reproduces her pain to palpation. Chest: COMMONS NORMALS: normal inspection of the chest and normal palpation of entire chest wall Resp: COMMON NORMALS: normal respiratory effort, No retractions, No use of accessory muscles and clear to auscultation bilaterally AUSCULTATION: clear to auscultation bilaterally Cardio: COMMON NORMALS: regular rate, regular rhythm and No murmurs present (Cardio) RATE: regular rate RHYTHM: regular rhythm GI: INSPECTION: Yes normal to inspection Extremity: COMMON NORMALS: normal to inspection and full ROM Neuro: COMMON NORMALS: patient oriented x3, moves all extremities and no focal motor deficits Psych: COMMON NORMALS: mental status grossly normal, Normal thought process present and cooperative THOUGHT PROCESS: Normal thought process present Skin: COMMON NORMALS: no rashes or lesions noted and no wounds GENERAL SKIN EXAM: no rashes or lesions noted Course Vital Signs: Vital signs: Vital Signs Temperature 98.1 F 03/19/22 01:04 Pulse Rate 85 03/19/22 01:04 Respiratory Rate 18 03/19/22 01:04 Blood Pressure 142/80 03/19/22 01:04 Pulse Oximetry 96 03/19/22 01:04 Oxygen Delivery Me thod 03/19/22 01:04 MDM - Neck Pain/Injury Medical Decision Making Patient presents here with right-sided neck pain likely muscular in nature she has no signs of mass or no fever we will place her on Naprosyn Robaxin she is to follow-up with PCP and return if worsening. Discharge Plan Discharge Patient Disposition: Home Clinical Impression: Strain of neck muscle Condition: Stable Prescriptions: New methocarbamol 750 mg tablet 750 mg PO Q6H PRN (Reason: spasms) Qty: 20 0RF Naprosyn 500 mg tablet 500 mg PO BID PRN (Reason: pain) Qty: 20 0RF No Action gabapentin 300 mg capsule 300 mg PO TID buprenorphine HCl 8 mg tablet, sublingual 16 mg SUBLINGUAL DAILY Ventolin HFA 90 mcg/actuation HFA aerosol inhaler 2 inh inhalation Q6H PRN (Reason: shortness of breath or wheezing) Qty: 6.7 0RF doxycycline hyclate 100 mg tablet 100 mg PO BID 7 Days Qty: 14 0RF prednisone 20 mg tablet 40 mg PO DAILY 5 Days Qty: 10 0RF fluconazole [Diflucan] 150 mg tablet 150 mg PO Q3D 14 Days Qty: 4 0RF Rx Instructions: Take on tab by mouth on Days 1,4,7 and 14. triamcinolone acetonide 0.5 % cream 1 applic topical DAILY Qty: 15 1RF albuterol sulfate 90 mcg/actuation HFA aerosol inhaler 2 inh INHALATION Q4H PRN (Reason: shortness of breath or wheezing) Qty: 18 0RF mupirocin 2 % ointment 1 applic topical BID Qty: 22 0RF diclofenac sodium 75 mg tablet,delayed release (DR/EC) 75 mg PO BID Qty: 20 0RF tizanidine 4 mg tablet 4 mg PO Q8H PRN (Reason: muscle spasticity) Qty: 14 0RF Discharge Orders: Discharge ED (Routine); Ordered 03/19/22 Ordered By: Zachariah Sanabria Referrals: Brock Lux MD [Primary Care Provider] - 1-3 days Discharge Diet: Advance as tolerated Discharge Activity: Resume usual activity Patient Instructions: Cervical Strain (ED), Acute Neck Pain (ED) Coding Level of Care Code ED Fleshing Machine Operator for Chg Fwd Exam Comprehensive
[2022-03-19] MEDS: methocarbamol 750 mg Tablet PO (01:25)
[2022-03-19] MEDS: dexamethasone 10 mg/mL INJ IM (01:25)
[2022-03-19] MEDS: ketorolac 60 mg/2 mL INJ IM (01:25)
== END 2022-03-19 01:51 | disposition home or self-care (01) ==
PROVIDERS: Emergency Provider Emergency Medicine; PCP Family Medicine
DX: S16.1XXA Strain of muscle, fascia and tendon at neck level, initial encounter (principal); X58.XXXA Exposure to other specified factors, initial encounter; Z87.891 Personal history of nicotine dependence
CPT/HCPCS: 96372; 99284; J1100; J1885

== ENCOUNTER 2022-04-30 04:25 | Emergency (ER) | payer MEDICAID, SELFPAY ==
--- NOTE | 2022-04-30 04:26 | XRR_ITS ---
PROCEDURE INFORMATION: Exam: XR Chest Exam date and time: 04/30/2022 4:33 AM Age: 46 years old Clinical indication: Cough TECHNIQUE: Imaging protocol: Radiologic exam of the chest. Views: 2 views. COMPARISON: CR XR chest 1V portable [id number] 10/29/2021 1:26 PM FINDINGS: Lungs: No significant or acute findings. No consolidation. Pleural spaces: No costophrenic angle blunting. No pneumothorax. Heart/Mediastinum: Heart size is normal. Bones/joints: No acute osseous abnormality. XR/XR chest 2V* [id number] IMPRESSION: No evidence of acute cardiopulmonary disease.
[2022-04-30 04:29] VITALS: BP 116/56; PULSE 84; RESP 27; TEMP 36.6; O2SAT 96; BMI 29.9
--- NOTE | 2022-04-30 04:40 | ED_ITS ---
HPI - Nausea/Vomiting/Diarrhea General: Chief complaint: Nausea/Vomiting/Diarrhea Stated complaint: Caoughing\N\Sore Throat Time Seen by Provider: 04/30/22 04:27 Source: patient Mode of arrival: ambulatory Limitations: no limitations History of Present Illness: 46-year-old female who states that over the last day she has had a cough along with sore throat and diarrhea. She has had low- grade fevers at home patient is here with her daughter who has similar symptoms. She has had no vomiting she is in no respiratory distress has minimal shortness of breath denies any chest pain. Associated nausea: No Associated symtoms: Denies chest pain, dysuria, headache(s) or nausea Review of Systems Const: Denies: fever(s), chills, body aches or change in appetite Eyes: Denies: blurry vision or eye discomfort ENMT: Reports: throat pain Card: Denies: chest pain Resp: Reports: non-productive cough GI: Reports: diarrhea; Denies: abdominal pain, nausea or vomiting : Denies: dysuria Musc: Denies: neck pain or back pain Skin/Breast: Denies: rash Neuro: Denies: headache(s) Psych: Denies: depression Roberto Carlos/Lymph: Denies: easy bruising All/Imm: Denies: urticaria PFSH ED PFSH: Medical History Allergic contact dermatitis Encounter for long-term (current) use of NSAIDs Encounter for long-term opiate analgesic use Intervertebral disc disorder with radiculopathy of lumbosacral region [facility] (current) use of opiate analgesic Low back pain 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Surgical History History of eye prosthesis Family History Mother Diabetes Father Heart disease Arthritis Social History Smoking and tobacco status: former smoker Alcohol intake: never Lives independently: Yes Household members: family and children Housing: House Marital status: Single Current occupational status: unemployed History of recent travel: No Female Reproductive History: Date of last menstrual period: 02/08/22 Physical Exam Const: COMMON NORMALS: no acute distress, patient oriented x3 and healthy appearing HENMT: COMMON NORMALS: normocephalic and atraumatic HEAD & SCALP: normocephalic and atraumatic Eye: COMMON NORMALS: Equal, round and reactive pupils present and EOMs intact bilaterally PUPIL: Yes Equal, round and reactive pupils present Neck/C-Spine: COMMON NORMALS: full ROM and supple Chest: COMMONS NORMALS: normal inspection of the chest and normal palpation of entire chest wall Resp: COMMON NORMALS: normal respiratory effort, No retractions, No use of accessory muscles and clear to auscultation bilaterally AUSCULTATION: clear to auscultation bilaterally Cardio: COMMON NORMALS: regular rate, regular rhythm and No murmurs present (Cardio) RATE: regular rate RHYTHM: regular rhythm GI: COMMON NORMALS: Normal to inspection, nondistended, normoactive bowel sounds present, Soft to palpation, non-tender and no masses PALPATION: Yes Soft to palpation Extremity: COMMON NORMALS: normal to inspection and full ROM Neuro: COMMON NORMALS: patient oriented x3, moves all extremities and no focal motor deficits Psych: COMMON NORMALS: mental status grossly normal, Normal thought process present and cooperative THOUGHT PROCESS: Normal thought process present Skin: COMMON NORMALS: no rashes or lesions noted and no wounds GENERAL SKIN EXAM: no rashes or lesions noted Course Vital Signs: Vital signs: Vital Signs Temperature 97.8 F 04/30/22 04:29 Pulse Rate 84 04/30/22 04:29 Respiratory Rate 27 H 04/30/22 04:29 Blood Pressure 116/56 04/30/22 04:29 Pulse Oximetry 96 04/30/22 04:29 Oxygen Delivery Me thod 04/30/22 04:29 MDM - Nausea/Vomiting/Diarrhea Medical Decision Making Patient presents for sore throat along with diarrhea is likely viral syndrome she is well-appearing here x-ray is normal swabs are normal she is stable for discharge she is to follow-up with PCP and return if worsening. Lab Data Laboratory Results Influenza Type A Ag negative (Negative) 04/30/22 04:49 Influenza Type B Ag negative (Negative) 04/30/22 04:49 SARS-CoV-2 Ag (Rapid) negative (Negative) 04/30/22 04:49 Group A Strep Rapid Negative (Negative) 04/30/22 04:49 Discharge Plan Discharge Patient Disposition: Home Clinical Impression: Viral syndrome Condition: Stable Prescriptions: No Action gabapentin 300 mg capsule 300 mg PO TID buprenorphine HCl 8 mg tablet, sublingual 16 mg SUBLINGUAL DAILY Ventolin HFA 90 mcg/actuation HFA aerosol inhaler 2 inh inhalation Q6H PRN (Reason: shortness of breath or wheezing) Qty: 6.7 0RF baclofen 10 mg tablet 10 mg PO TID prednisone 20 mg tablet 60 mg PO DAILY 5 Days Qty: 15 0RF methocarbamol 750 mg tablet 750 mg PO Q8H Qty: 30 0RF albuterol sulfate 90 mcg/actuation HFA aerosol inhaler 2 inh INHALATION Q4H PRN (Reason: shortness of breath or wheezing) Qty: 18 0RF mupirocin 2 % ointment 1 applic topical BID Qty: 22 0RF Naprosyn 500 mg tablet 500 mg PO BID PRN (Reason: pain) Qty: 20 0RF Discharge Orders: Discharge ED (Routine); Ordered 04/30/22 Ordered By: Zachariah Sanabria Discharge Diet: Advance as tolerated Discharge Activity: Resume usual activity Patient Instructions: Viral Syndrome (ED) Coding Level of Care Code ED Assistant Press Operator for Markusg Fwd Exam Comprehensive
[2022-04-30 05:18] LABS: Rapid Strep A Test Negative (Negative)
[2022-04-30 05:19] LABS: Influenza A by IFA negative (Negative); Influenza B by IFA negative (Negative)
[2022-04-30 05:39] LABS: SARS Covid-2 Antigen negative (Negative)
[2022-04-30 05:56] VITALS: PULSE 77; RESP 18; O2SAT 93
== END 2022-04-30 05:49 | disposition home or self-care (01) ==
PROVIDERS: Emergency Provider Emergency Medicine
DX: B34.9 Viral infection, unspecified (principal); Z87.891 Personal history of nicotine dependence; Z79.891 Long term (current) use of opiate analgesic
CPT/HCPCS: 71046; 87081; 87426; 87804; 87880; 99284

== ENCOUNTER 2022-05-08 15:12 | Emergency (ER) | payer MEDICAID, SELFPAY ==
[2022-05-08 15:40] VITALS: BP 129/74; PULSE 99; RESP 17; TEMP 36.4; O2SAT 96; BMI 29.7
--- NOTE | 2022-05-08 16:27 | ED_ITS ---
HPI - General Adult General: Chief complaint: General Medical Stated complaint: Throat swelling Time Seen by Provider: 05/08/22 16:26 History of Present Illness: Ms. Samuels is a 46-year-old lady presenting to the emergency department due to throat pain and swollen sensation. She was previously diagnosed with a viral syndrome and had felt like that she was improving however last night started to worsen. She has a tight sensation in her throat and painful lymph nodes. She tried to swallow food earlier and had difficulty though she was still able to tolerate liquids. No voice change or shortness of breath. No pain under her tongue. Has noticed redness and bumps in the back of her throat. Intensity is moderate. Course is worsened. No other specific changes in health, exacerbating, or alleviating factors identified. Onset (ago): day(s) Location: neck Severity: severe Quality: other Exacerbating factors: eating and other Review of Systems General: Reports: 10 or more systems reviewed and unremarkable except in HPI and below PFSH ED PFSH: Medical History Allergic contact dermatitis Encounter for long-term (current) use of NSAIDs Encounter for long-term opiate analgesic use Intervertebral disc disorder with radiculopathy of lumbosacral region [facility] (current) use of opiate analgesic Low back pain 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Surgical History History of eye prosthesis Family History Mother Diabetes Father Heart disease Arthritis Social History Smoking and tobacco status: former smoker Alcohol intake: never Lives independently: Yes Household members: family and children Housing: House Marital status: Single Current occupational status: unemployed History of recent travel: No Female Reproductive History: Date of last menstrual period: 04/04/22 Physical Exam Const: COMMON NORMALS: alert GENERAL APPEARANCE: cooperative and well developed HENMT: COMMON NORMALS: normocephalic and atraumatic HEAD & SCALP: normocephalic and atraumatic OTHER: Mild posterior pharyngeal erythema with exudates. No uvular edema or evidence of peritonsillar abscess. No adventitious upper airway noises or evidence of acute airway compromise. Eye: COMMON NORMALS: conjunctivae normal CONJUNCTIVA: Yes conjunctivae normal SCLERA: sclerae normal Neck/C-Spine: COMMON NORMALS: supple and no meningeal signs GENERAL: Yes trachea midline OTHER: Mild adenopathy Resp: COMMON NORMALS: clear to auscultation bilaterally EFFORT & INSPECTION: Yes able to speak in complete sentences AUSCULTATION: clear to auscultation bilaterally Cardio: COMMON NORMALS: regular rate and regular rhythm RATE: regular rate RHYTHM: regular rhythm GI: COMMON NORMALS: Soft to palpation PALPATION: Yes Soft to palpation and No Tenderness to palpation present (GI) Extremity: GENERAL: Yes normal exam except as noted and No edema Neuro: COMMON NORMALS: moves all extremities SENSORIUM/ORIENTATION: Yes alert and No Orientation impaired MENINGEAL SIGNS: Yes no meningeal signs Psych: COMMON NORMALS: mental status grossly normal and Normal thought process present THOUGHT PROCESS: Normal thought process present Course Vital Signs: Vital signs: Vital Signs Temperature 97.5 F L 05/08/22 15:40 Pulse Rate 66 05/08/22 18:36 Respiratory Rate 16 05/08/22 18:36 Blood Pressure 136/81 05/08/22 18:36 Pulse Oximetry 99 05/08/22 18:36 Oxygen Delivery Me thod 05/08/22 15:40 MDM - General Adult Medical Decision Making 46-year-old lady presenting with sore throat and difficulty swallowing in the context of recent diagnosed viral syndrome. No evidence of acute airway c ompromise or emergent intervention required. Laboratory studies with mild leukocytosis and hemoconcentration. Metabolic panel with mild dehydration. Given persistence of symptoms and subjective severity I recommended CT which the patient declined. Upon reassessment after treatment patient mildly improved. The results of ED evaluation were discussed with the patient including prescriptions and/or symptomatic cares (if applicable) including appropriate and responsible use, followup plan, and return precautions. The patient verbalized understanding and felt safe for discharge. Medical Records I reviewed the patient's medical records. Lab Data I reviewed the patient's lab results. : 05/08/22 17:16 05/08/22 17:16 Laboratory Results WBC 11.6 10^3/uL (4.0-10.0) H 05/08/22 17:16 RBC 4.54 10^6/uL (4.1-5.3) 05/08/22 17:16 Hgb 15.7 g/dL (11.5-15.3) H 05/08/22 17:16 Hct 46.0 % (37.0-47.0) 05/08/22 17:16 MCV 101.3 fl (81-99) H 05/08/22 17:16 MCH 34.6 pg (28.0-34.0) H 05/08/22 17:16 MCHC 34.1 g/dL (30.0-36.0) 05/08/22 17:16 RDW 12.8 % (12.1-15.1) 05/08/22 17:16 Plt Count 215 10^3/cmm (130-400) 05/08/22 17:16 MPV 10.7 fL (7.4-10.4) H 05/08/22 17:16 Neut % (Auto) 80.4 % 05/08/22 17:16 Lymph % (Auto) 13.7 % 05/08/22 17:16 [place] % (Auto) 4.1 % 05/08/22 17:16 Eos % (Auto) 0.8 % 05/08/22 17:16 Baso % (Auto) 0.4 % 05/08/22 17:16 Neut # (Auto) 9.33 10^3/uL (1.8-7.7) H 05/08/22 17:16 Lymph # (Auto) 1.6 10^3/uL (0.8-4.8) 05/08/22 17:16 [place] # (Auto) 0.5 10^3/uL (0.2-0.9) 05/08/22 17:16 Eos # (Auto) 0.1 10^3/uL (0.0-0.8) 05/08/22 17:16 Baso # (Auto) 0.1 10^3/uL (0.0-0.1) 05/08/22 17:16 Nucleated RBC % (auto) 0 % 05/08/22 17:16 Nucleated RBCs # 0.0 /100WBC 05/08/22 17:16 Sodium 134 mmol/L (136-145) L 05/08/22 17:16 Potassium 3.8 mmol/L (3.5-5.1) 05/08/22 17:16 Chloride 99 mmol/L (98-107) 05/08/22 17:16 Carbon Dioxide 27 mmol/L (22-29) 05/08/22 17:16 Anion Gap 11.8 (5-19) 05/08/22 17:16 BUN 16 mg/dL (6-20) 05/08/22 17:16 Creatinine 0.8 mg/dL (0.5-0.9) 05/08/22 17:16 GFR Calculation 77.9 mL/min (90-130) L 05/08/22 17:16 Glucose 128 mg/dL (65-115) H 05/08/22 17:16 Calculated Osmolality 281 mOsm/kg (285-295) L 05/08/22 17:16 Calcium 9.5 mg/dL (8.5-10.5) 05/08/22 17:16 Total Bilirubin 0.3 mg/dL (0.15-1.2) 05/08/22 17:16 AST 27 U/L (0-32) 05/08/22 17:16 ALT 41 U/L (0-33) H 05/08/22 17:16 Alkaline Phosphatase 91 U/L (35-105) 05/08/22 17:16 Total Protein 7.7 g/dL (6.6-8.7) 05/08/22 17:16 Albumin 4.2 g/dL (3.5-5.2) 05/08/22 17:16 Globulin 3.5 g/dL (1.3-4.6) 05/08/22 17:16 HCG, Qual Negative (Negative) 05/08/22 17:22 Urine Color Straw (Yellow) 05/08/22 17:22 Urine Appearance Clear (CLEAR) 05/08/22 17:22 Urine pH 5 (5-7) 05/08/22 17:22 Ur Specific B[place] 1.020 (1.005-1.030) 05/08/22 17:22 Urine Protein Neg (Negative) 05/08/22 17:22 Urine Glucose (UA) Norm (Normal) 05/08/22 17:22 Urine Ketones Negative (Negative) 05/08/22 17:22 Urine Blood Neg (Negative) 05/08/22 17:22 Urine Nitrate Negative (Negative) 05/08/22 17:22 Urine Bilirubin Neg (Negative) 05/08/22 17:22 Urine Urobilinogen Norm mg/dL (Negative) 05/08/22 17:22 Ur Leukocyte Esterase Negative (Negative) 05/08/22 17:22 Influenza Type A Ag negative (Negative) 05/08/22 17:16 Influenza Type B Ag negative (Negative) 05/08/22 17:16 SARS-CoV-2 Ag (Rapid) negative (Negative) 05/08/22 17:16 Group A Strep Rapid Negative (Negative) 05/08/22 17:16 Discharge Plan Discharge Patient Disposition: Home Clinical Impression: Pharyngitis Condition: Stable Prescriptions: No Action gabapentin 300 mg capsule 300 mg PO TID buprenorphine HCl 8 mg tablet, sublingual 16 mg SUBLINGUAL DAILY Ventolin HFA 90 mcg/actuation HFA aerosol inhaler 2 inh inhalation Q6H PRN (Reason: shortness of breath or wheezing) Qty: 6.7 0RF baclofen 10 mg tablet 10 mg PO TID prednisone 20 mg tablet 60 mg PO DAILY 5 Days Qty: 15 0RF methocarbamol 750 mg tablet 750 mg PO Q8H Qty: 30 0RF albuterol sulfate 90 mcg/actuation HFA aerosol inhaler 2 inh INHALATION Q4H PRN (Reason: shortness of breath or wheezing) Qty: 18 0R F mupirocin 2 % ointment 1 applic topical BID Qty: 22 0RF Naprosyn 500 mg tablet 500 mg PO BID PRN (Reason: pain) Qty: 20 0RF Discharge Orders: Discharge ED (Routine); Ordered 05/08/22 Ordered By: Khai Yarbrough Discharge Diet: Usual diet Discharge Activity: Increase activity as tolerated Patient Instructions: Pharyngitis (ED), Pain Management Activity Restrictions/Additional Instructions: Thank you for visiting the emergency department. You were seen and evaluated for swollen throat sensation and pain. The exact cause of your symptoms is unclear. I recommended CT which you declined at this time. Please follow-up with your primary care provider. Return to the emergency department for worsening symptoms, trouble breathing, or anything else that you are concerned about a feel needs emergency department evaluation. Coding Level of Care Code ED Vp Director Of Finance for Julianna Irene
[2022-05-08] MEDS: sodium chloride 0.9% 1,000 ML 999 ML IV (17:10)
[2022-05-08] MEDS: ketorolac 30 mg/mL INJ 15 MG IVP (17:11)
[2022-05-08] MEDS: famotidine 20 mg/2 mL INJ 40 MG IVP (17:35)
[2022-05-08 17:37] LABS: Add Urine Microscopic? NO; Charge for UA Resulting for Rev
[2022-05-08 17:38] LABS: Basophils # 0.1 10^3/uL (0.0-0.1); Basophils % 0.4 %; Eosinophils # 0.1 10^3/uL (0.0-0.8); Eosinophils % 0.8 %; Hemoglobin 15.7 g/dL (11.5-15.3); Lymphocytes # 1.6 10^3/uL (0.8-4.8); Lymphocytes % 13.7 %; Mean Corpuscular HGB Conc 34.1 g/dL (30.0-36.0); Mean Corpuscular Hemoglobin 34.6 pg (28.0-34.0); Mean Corpuscular Volume 101.3 fl (81-99); Mean Platelet Volume 10.7 fL (7.4-10.4); Monocytes # 0.5 10^3/uL (0.2-0.9); Monocytes % 4.1 %; Neutrophils # 9.33 10^3/uL (1.8-7.7); Neutrophils % 80.4 %; Nucleated Red Blood Cells % 0 %; Platelet Count 215 10^3/cmm (130-400); Red Blood Count 4.54 10^6/uL (4.1-5.3); Red Cell Distribution Width 12.8 % (12.1-15.1); White Blood Count 11.6 10^3/uL (4.0-10.0)
[2022-05-08 17:41] LABS: Bilirubin Urine Neg (Negative); Blood Urine Neg (Negative); Glucose Urine UA Norm (Normal); Ketones Urine Negative (Negative); Leukocyte Esterase Urine Negative (Negative); Nitrate Urine Negative (Negative); Protein Urine Neg (Negative); Urine Appearance Clear (CLEAR); Urine Color Straw (Yellow); Urobilinogen Urine Norm (Negative); pH Urine 5 (5-7)
[2022-05-08 17:42] LABS: HCG Qualitative Urine. Negative (Negative)
[2022-05-08 17:59] LABS: Alanine Aminotransferase 41 U/L (0-33); Albumin Level 4.2 g/dL (3.5-5.2); Alkaline Phosphatase 91 U/L (35-105); Anion Gap 11.8 (5-19); Aspartate Amino Transferase 27 U/L (0-32); Blood Urea Nitrogen 16 mg/dL (6-20); Calcium 9.5 mg/dL (8.5-10.5); Carbon Dioxide 27 mmol/L (22-29); Chloride 99 mmol/L (98-107); Globulin 3.5 g/dL (1.3-4.6); Glomerular Filtration Rate 77.9 mL/min (90-130); Glucose 128 mg/dL (65-115); Osmolality Calculated 281 mOsm/kg (285-295); Potassium 3.8 mmol/L (3.5-5.1); Rapid Strep A Test Negative (Negative); Sodium 134 mmol/L (136-145); Total Bilirubin 0.3 mg/dL (0.15-1.2); Total Protein 7.7 g/dL (6.6-8.7)
[2022-05-08 18:06] LABS: Influenza A by IFA negative (Negative); Influenza B by IFA negative (Negative); SARS Covid-2 Antigen negative (Negative)
[2022-05-08 18:36] VITALS: BP 136/81; PULSE 66; RESP 16; O2SAT 99
== END 2022-05-08 18:38 | disposition home or self-care (01) ==
PROVIDERS: Emergency Provider Emergency Medicine
DX: J02.9 Acute pharyngitis, unspecified (principal); Z87.891 Personal history of nicotine dependence
CPT/HCPCS: 80053; 81003; 81025; 85025; 87081; 87426; 87804; 87880; 96374; 96375; 99285; J1885; J2930; J3490; J7030

== ENCOUNTER 2022-05-16 11:20 | Emergency (ER) | payer MEDICAID, SELFPAY ==
[2022-05-16 11:32] VITALS: BP 118/60; PULSE 78; RESP 16; TEMP 36.6; O2SAT 95; BMI 30.4
--- NOTE | 2022-05-16 11:51 | ED_ITS ---
HPI - General Adult General: Chief complaint: General Medical Stated complaint: mouth infection,headache Time Seen by Provider: 05/16/22 11:40 Source: patient Mode of arrival: ambulatory Limitations: no limitations History of Present Illness: 6-year-old female presents to the ER today for continued throat pain. She reports she was treated nearly 10 days ago with amoxicillin for a strep infection. Patient reports things have just not improved as far as the sore throat goes. She reports she does feel better overall but still has the sore throat. She also has a headache that started this morning. Denies any fever or chills. Denies any congestion or runny nose. 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 Low back pain 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Surgical History History of eye prosthesis Family History Mother Diabetes Father Heart disease Arthritis Social History Smoking and tobacco status: former smoker Alcohol intake: never Lives independently: Yes Household members: family and children Housing: House Marital status: Single Current occupational status: unemployed History of recent travel: No Female Reproductive History: Date of last menstrual period: 04/04/22 Physical Exam Const: COMMON NORMALS: no acute distress, average body habitus, patient o riented x3, no limitations, healthy appearing, alert and well nourished HENMT: COMMON NORMALS: normocephalic, atraumatic, external ears normal, TM's normal bilaterally, Normal nasal mucous membranes and turbinates present, moist oral mucous membranes and oropharynx normal HEAD & SCALP: normocephalic and atraumatic NOSE: Normal nasal mucous membranes and turbinates present EXTERNAL EAR: Yes external ears normal TYMPANIC MEMBRANE: TM's normal bilaterally Eye: COMMON NORMALS: conjunctivae normal CONJUNCTIVA: Yes conjunctivae normal Lymph: LYMPHATIC: no lymphadenopathy noted Resp: COMMON NORMALS: normal respiratory effort, No retractions and clear to auscultation bilaterally AUSCULTATION: clear to auscultation bilaterally Cardio: COMMON NORMALS: regular rate and regular rhythm RATE: regular rate RHYTHM: regular rhythm Extremity: COMMON NORMALS: normal to inspection and full ROM Neuro: COMMON NORMALS: patient oriented x3 SENSORIUM/ORIENTATION: Yes alert Psych: COMMON NORMALS: mental status grossly normal, Normal thought process present and cooperative THOUGHT PROCESS: Normal thought process present Skin: COMMON NORMALS: no rashes or lesions noted and no wounds GENERAL SKIN EXAM: no rashes or lesions noted Course ED course: Patient presents for continued sore throat and headache that began this morning. Patient is nearly done with her amoxicillin she was given for strep. Patient reports it just hurts to swallow more than anything. She overall feels better though. We will repeat a strep as it could be that this was resistant to the medication. Otherwise no testing recommended. Vital Signs: Vital signs: Vital Signs Temperature 97.8 F 05/16/22 11:32 Pulse Rate 78 05/16/22 11:32 Respiratory Rate 16 05/16/22 11:32 Blood Pressure 118/60 05/16/22 11:32 Pulse Oximetry 95 05/16/22 11:32 Oxygen Delivery Me thod 05/16/22 11:32 MDM - General Adult Medical Decision Making Strep negative. Patient appears to have possibly been diagnosed with thrush also. I would recommend she follow-up with her PCP to discuss further testing. At this time I would not recommend antibiotics. Warm salt water gargles recommended. Tylenol and Motrin alternating for pain. Patient's daughter sick also so this very well could be something viral. Return to the ER with any new or worsening symptoms. Patient verbalized understanding and was in agreement with the treatment plan. Lab Data Laboratory Results Group A Strep Rapid Negative (Negative) 05/16/22 11:52 Critical Care Time Critical Care Time: Critical Care Time: No Discharge Plan Discharge Patient Disposition: Home Clinical Impression: Pharyngitis Qualifiers: Pharyngitis/tonsillitis etiology: unspecified etiology Qualified Code(s): J02.9 - Acute pharyngitis, unspecified Condition: Stable Prescriptions: No Action gabapentin 300 mg capsule 300 mg PO TID buprenorphine HCl 8 mg tablet, sublingual 16 mg SUBLINGUAL DAILY Ventolin HFA 90 mcg/actuation HFA aerosol inhaler 2 inh inhalation Q6H PRN (Reason: shortness of breath or wheezing) Qty: 6.7 0RF baclofen 10 mg tablet 10 mg PO TID prednisone 20 mg tablet 60 mg PO DAILY 5 Days Qty: 15 0RF methocarbamol 750 mg tablet 750 mg PO Q8H Qty: 30 0RF albuterol sulfate 90 mcg/actuation HFA aerosol inhaler 2 inh INHALATION Q4H PRN (Reason: shortness of breath or wheezing) Qty: 18 0RF mupirocin 2 % ointment 1 applic topical BID Qty: 22 0RF Naprosyn 500 mg tablet 500 mg PO BID PRN (Reason: pain) Qty: 20 0RF Discharge Orders: Discharge ED (Routine); Ordered 05/16/22 Ordered By: Maritza Sanderson Discharge Diet: Usual diet Discharge Activity: Resume usual activity Patient Instructions: Opioid Safety, Pain Management Activity Restrictions/Additional Instructions: Tylenol alternate with Motrin for pain. Follow-up with PCP in 2 to 3 days. Return to ER with new or worsening symptoms. Coding Level of Care Code ED Skein Straightener for Julianna Irene
[2022-05-16 12:27] LABS: Rapid Strep A Test Negative (Negative)
== END 2022-05-16 13:42 | disposition home or self-care (01) ==
PROVIDERS: Emergency Provider Physician Assistant
DX: J02.9 Acute pharyngitis, unspecified (principal); Z87.891 Personal history of nicotine dependence
CPT/HCPCS: 87081; 87880; 99283

== ENCOUNTER 2022-06-04 18:47 | Emergency (ER) | payer MEDICAID, SELFPAY ==
[2022-06-04 19:04] VITALS: BP 129/77; PULSE 89; RESP 16; TEMP 35.9; O2SAT 95
--- NOTE | 2022-06-04 20:30 | ED_ITS ---
HPI - URI/Sore Throat General: Chief Complaint: Upper Respiratory Infection Stated Complaint: Flue Like Symptoms Time Seen by Provider: 06/04/22 19:39 Source: patient Mode of arrival: ambulatory Limitations: no limitations History of Present Illness: 46-year-old female states she is been having nasal discharge sinus pain and a slight cough. Patient states that has been worsening over the last 2 to 3 days. States that she has been having green nasal discharge is concerned she may have a sinus infection. No vomiting no diarrhea she denies any headaches. Associated symptoms: Reports chills and sinus pain; Deny abdominal pain, chest pain, diarrhea, headache(s), nausea or vomiting Review of Systems Const: Reports: chills and body aches Eyes: Denies: blurry vision or eye discomfort ENMT: Reports: nasal discharge and sinus pain Card: Denies: chest pain Resp: Reports: non-productive cough GI: Denies: abdominal pain, nausea, vomiting or diarrhea : Denies: dysuria Musc: Denies: neck pain or back pain Skin/Breast: Denies: rash Neuro: Denies: headache(s) Psych: Denies: depression Roberto Carlos/Lymph: Denies: easy bruising All/Imm: Denies: urticaria PFSH ED PFSH: Medical History Allergic contact dermatitis Encounter for long-term (current) use of NSAIDs Encounter for long-term opiate analgesic use Intervertebral disc disorder with radiculopathy of lumbosacral region shelter (current) use of opiate analgesic Low back pain 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Surgical History History of eye prosthesis Family History Mother Diabetes Father Heart disease Arthritis Social History Smoking and tobacco status: former smoker Alcohol intake: never Lives independently: Yes Household members: family and children Housing: House Marital status: Single Current occupational status: unemployed History of recent travel: No Female Reproductive History: Date of last menstrual period: 04/04/22 Physical Exam Const: COMMON NORMALS: no acute distress, patient oriented x3 and healthy appearing HENMT: COMMON NORMALS: normocephalic and atraumatic HEAD & SCALP: normocephalic and atraumatic Eye: COMMON NORMALS: Equal, round and reactive pupils present and EOMs intact bilaterally PUPIL: Yes Equal, round and reactive pupils present Neck/C-Spine: COMMON NORMALS: full ROM and supple Chest: COMMONS NORMALS: normal inspection of the chest and normal palpation of entire chest wall Resp: COMMON NORMALS: normal respiratory effort, No retractions, No use of accessory muscles and clear to auscultation bilaterally AUSCULTATION: clear to auscultation bilaterally Cardio: COMMON NORMALS: regular rate, regular rhythm and No murmurs present (Cardio) RATE: regular rate RHYTHM: regular rhythm GI: COMMON NORMALS: Normal to inspection, nondistended, normoactive bowel sounds present, Soft to palpation, non-tender and no masses PALPATION: Yes Soft to palpation Extremity: COMMON NORMALS: normal to inspection and full ROM Neuro: COMMON NORMALS: patient oriented x3, moves all extremities and no focal motor deficits Psych: COMMON NORMALS: mental status grossly normal, Normal thought process present and cooperative THOUGHT PROCESS: Normal thought process present Skin: COMMON NORMALS: no rashes or lesions noted and no wounds GENERAL SKIN EXAM: no rashes or lesions noted Course Vital Signs: Vital signs: Vital Signs Temperature 96.6 F L 06/04/22 19:04 Pulse Rate 89 06/04/22 19:04 Respiratory Rate 16 06/04/22 19:04 Blood Pressure 129/77 06/04/22 19:04 Pulse Oximetry 95 06/04/22 19:04 Oxygen Delivery Me thod 06/04/22 19:04 MDM - URI/Sore Throat Medical Decision Making Patient presents here with cough congestion along with sinus pain likely a sinus infection will place on doxycycline she is well-appearing here she is stable for discharge she is to follow-up with PCP and return if worsening she understands agrees to plan. Discharge Plan Discharge Patient Disposition: Home Clinical Impression: Sinusitis Qualifiers: Sinusitis location: unspecified location Chronicity: acute Recurrence: non- recurrent Qualified Code(s): J01.90 - Acute sinusitis, unspecified Condition: Stable Prescriptions: New doxycycline hyclate 100 mg tablet 100 mg PO BID 7 Days Qty: 14 0RF No Action gabapentin 300 mg capsule 300 mg PO TID buprenorphine HCl 8 mg tablet, sublingual 16 mg SUBLINGUAL DAILY Ventolin HFA 90 mcg/actuation HFA aerosol inhaler 2 inh inhalation Q6H PRN (Reason: shortness of breath or wheezing) Qty: 6.7 0RF baclofen 10 mg tablet 10 mg PO TID methocarbamol 750 mg tablet 750 mg PO Q8H Qty: 30 0RF levofloxacin 750 mg tablet 750 mg PO DAILY 7 Days Qty: 7 0RF prednisone 20 mg tablet 60 mg PO DAILY 5 Days Qty: 15 0RF albuterol sulfate 90 mcg/actuation HFA aerosol inhaler 2 inh inhalation 6XD PRN (Reason: shortness of breath or wheezing) Qty: 6.7 0RF albuterol sulfate 90 mcg/actuation HFA aerosol inhaler 2 inh INHALATION Q4H PRN (Reason: shortness of breath or wheezing) Qty: 18 0RF mupirocin 2 % ointment 1 applic topical BID Qty: 22 0RF Naprosyn 500 mg tablet 500 mg PO BID PRN (Reason: pain) Qty: 20 0RF Discharge Orders: Discharge ED (Routine); Ordered 06/04/22 Ordered By: Zachariah Sanabria Discharge Diet: Advance as tolerated Discharge Activity: Resume usual activity Patient Instructions: Sinusitis (ED) Coding Level of Care Code ED Automated Teller Manager for Julianna Irene
[2022-06-04 20:31] LABS: Influenza A by IFA negative (Negative); Influenza B by IFA negative (Negative)
[2022-06-04 20:33] LABS: SARS Covid-2 Antigen Negative (Negative)
[2022-06-04] MEDS: dexamethasone 10 mg/mL INJ IM (21:05)
--- NOTE | 2022-06-04 21:17 | PC.NURSE ---
PT discharge paperwork & script given, pt verbally acknowledges understanding of the same.Pt was seen by Physician prior to Nurse Assessment. Dexamethasone given Right Deltoid IM per SEP.
== END 2022-06-04 21:32 | disposition home or self-care (01) ==
PROVIDERS: Emergency Provider Emergency Medicine
DX: J01.90 Acute sinusitis, unspecified (principal); Z87.891 Personal history of nicotine dependence; Z20.822 Contact with and (suspected) exposure to COVID-19
CPT/HCPCS: 87426; 87804; 96372; 99284; J1100

== ENCOUNTER → 2022-07-12 18:02 | Outpatient (BNVA) | payer BC, MEDICAID, SELFPAY | PROVIDERS: Visit Provider Nurse Practitioner Family | DX: J02.9 Acute pharyngitis, unspecified (principal); B37.81 Candidal esophagitis; B37.0 Candidal stomatitis | CPT/HCPCS: 87071; 87880 ==

== ENCOUNTER 2022-07-23 09:54 | Emergency (ER) | payer BC, MEDICAID, SELFPAY ==
[2022-07-23 09:57] VITALS: BP 127/82; PULSE 106; RESP 18; TEMP 36.7; O2SAT 96
--- NOTE | 2022-07-23 10:41 | W.ED.EXTPRO ---
HPI - Extremity Problem General: Chief complaint: General Medical Stated complaint: knot on Right forearm, tingling in right fingers Time Seen by Provider: 07/23/22 10:31 Source: patient Mode of arrival: ambulatory Limitations: no limitations History of Present Illness: Patient is a 47-year-old female presents to ED today with a complaint of tingling to her right hand that she began noticing several hours ago. She states upon arrival to the ED the tingling has improved. She also has a complaint of a knot to her right forearm that she is concerned could be a blood clot. She states she is not having any pain to her right hand. No other acute neurologic complaints. No neck pain. MD Complaint: other (tingling to R hand, knot to right forearm) Onset (ago): hour(s) Location: right and upper extremity (hand) Quality: other (tingling) Radiation: none Relieving factors: nothing Exacerbating factors: nothing Associated symptoms: Reports no associated symptoms; Deny chest pain, fever(s) or rash Review of Systems Const: Denies: fever(s), chills, body aches, fatigue or malaise Card: Denies: chest pain Resp: Denies: dyspnea Musc: Denies: neck pain, back pain, extremity pain, extremity swelling, joint pain, joint swelling, joint redness, joint warmth, joint stiffness, limited range of motion, muscle cramps, muscle weakness or decrease in muscle mass Skin/Breast: Denies: rash Neuro: Reports: sensory changes; Denies: headache(s), weakness in extremities, dizziness, vertigo, confusion, behavioral changes, Slurred speech present, difficulty communicating thoughts or seizure-like activity [facility] [place] ED PFSH: Medical History Allergic contact dermatitis Encounter for long-term (current) use of NSAIDs Encounter for long-term opiate analgesic use Intervertebral disc disorder with radiculopathy of lumbosacral region long term care administrator (current) use of opiate analgesic Low back pain 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Surgical History History of eye prosthesis Family History Mother Diabetes Father Heart disease Arthritis Social History (Reviewed 07/23/22 @ 10:46 by PHILIPP Gill Smoking and tobacco status: former smoker Alcohol intake: never Lives independently: Yes Household members: family and children Housing: House Marital status: Single Current occupational status: unemployed History of recent travel: No Female Reproductive History: Date of last menstrual period: 04/04/22 Physical Exam Const: COMMON NORMALS: no acute distress, average body habitus, no limitations, alert and well nourished GENERAL APPEARANCE: cooperative ORIENTATION/CONSCIOUSNESS: Yes awake, Yes oriented to person, Yes oriented to place and Yes oriented to time Neck/C-Spine: COMMON NORMALS: full ROM, no lymphadenopathy and no meningeal signs GENERAL: Yes normal visual inspection CERVICAL SPINE: Yes cervical ROM normal, No pain with cervical ROM, No Cervical spine tenderness, No step off deformity, No Paracervical muscle tenderness, No Paracervical spasm, No Trapezius muscle tenderness and No Lhermitte's sign positive Back/Pelvis: COMMON NORMALS: thoracic and lumbar spine normal to inspection, no thoracic nor lumbar tenderness and thoraco-lumbar ROM normal Extremity: COMMON NORMALS: full ROM, capillary refill normal, no joint enlargement, no clubbing, cyanosis or edema and no calf tenderness GENERAL: Yes normal exam except as noted RIGHT UPPER EXTREMITY: Yes lower arm and Yes hand & digits OTHER: no swelling noted to R hand; she has good radial pulse and normal cap refill; she reports decreased sensation throughout palmar and dorsal aspects of hand and digits when compared to left side; she has positive phalen's test but negative tinel's; while talking to patient I noted the dorsal aspect of several of her digits (bilaterally) turning white before returning to normal raising the suspicion for a possible Raynaud's phenomenon; strength remains intact to digits and wrist she has a small 1cm mobile nodule to R radial forearm that most likely is a ganglion cyst Neuro: COMMON NORMALS: moves all extremities and no focal motor deficits SENSORIUM/ORIENTATION: Yes alert, Yes oriented to person, Yes oriented to place and Yes oriented to time MENINGEAL SIGNS: Yes no meningeal signs Skin: COMMON NORMALS: no rashes or lesions noted GENERAL SKIN EXAM: no rashes or lesions noted Course Vital Signs: Vital signs: Vital Signs Temperature 98.1 F 07/23/22 09:57 Pulse Rate 106 H 07/23/22 09:57 Respiratory Rate 18 07/23/22 09:57 Blood Pressure 127/82 07/23/22 09:57 Pulse Oximetry 96 07/23/22 09:57 Oxygen Delivery Me thod 07/23/22 09:57 MDM - Extremity (Nontraumatic) Medical Decision Making Patient's right forearm nodule most likely is a ganglion cyst. I do not feel cyst most likely is responsible for patient's paresthesias. On exam I did notice intermittent color changes to her digits making me suspicious for a possible Raynaud's phenomenon. This can sometimes be associated with sensations of [id number] and numbness. She did have a positive Phalen's test and she does states she does repetitive hand movements for work. On arrival to the ED she states paresthesias have improved. We did discuss if they return or worsening possibly velcro wrist splinting at night if this is a CTS. Recommend she follow up with PCP in 1-2 weeks if symptoms do not improve. Discharge Plan Discharge Patient Disposition: Home Clinical Impression: Ganglion cyst, Right hand paresthesia Condition: Stable Prescriptions: No Action gabapentin 300 mg capsule 1,200 mg PO TID buprenorphine HCl 8 mg tablet, sublingual 16 mg SUBLINGUAL DAILY fluconazole [Diflucan] 150 mg tablet 150 mg PO DAILY Qty: 6 0RF Rx Instructions: for 3 days, then repeat 1 week later Ventolin HFA 90 mcg/actuation HFA aerosol inhaler 1 - 2 inh inhalation Q6H PRN (Reason: shortness of breath or wheezing) Qty: 6.7 0RF methocarbamol 750 mg tablet 750 mg PO TID prednisone 20 mg tablet 20 mg PO BID 5 Days Qty: 10 0RF Discharge Orders: Discharge ED (Routine); Ordered 07/23/22 Ordered By: Gail March Referrals: NOT ON FILE,DOCTOR [Primary Care Provider] - Coding Level of Care Code ED Shift Foreman for Julianna Irene
== END 2022-07-23 10:51 | disposition home or self-care (01) ==
PROVIDERS: Emergency Provider Physician Assistant
DX: M67.431 Ganglion, right wrist (principal); R20.2 Paresthesia of skin; Z87.891 Personal history of nicotine dependence
CPT/HCPCS: 99282

== ENCOUNTER → 2022-09-01 11:26 | Outpatient (BNVA) | payer BC, MEDICAID, SELFPAY | PROVIDERS: Visit Provider Nurse Practitioner | DX: J02.9 Acute pharyngitis, unspecified (principal); M62.830 Muscle spasm of back; J06.9 Acute upper respiratory infection, unspecified | CPT/HCPCS: 87071; 87880 ==

== ENCOUNTER 2022-09-30 11:09 | Emergency (ER) | payer BC, MEDICAID, SELFPAY ==
[2022-09-30 11:13] VITALS: BP 97/63; PULSE 79; RESP 17; TEMP 36.7; O2SAT 97; BMI 28.8
--- NOTE | 2022-09-30 11:32 | ED_ITS ---
HPI - General Adult General: Chief complaint: General Medical Stated complaint: sinus infection/back pain Time Seen by Provider: 09/30/22 11:21 History of Present Illness: Patient is a 47-year-old female comes to the ED with lower back pain and sinus infection. Patient states that her sinus congestion and pain started approximately 5 days ago. Her lower back pain is chronic, but she is having an acute flareup that started about 3 days ago. She rates her pain a 6 out of 10. Pain is located in the lower back and radiates down into right and left legs. Denies any cauda equina symptoms. Denies any fevers. Associated symptoms: Deny chest pain, dyspnea, headache(s), nausea, rash, palpitations or vomiting Review of Systems Const: Denies: fever(s), chills or fatigue Eyes: Denies: change in vision or eye discomfort ENMT: Reports: nasal discharge, nasal congestion and sinus pain (Sinus congestion and pain); Denies: throat pain or odynophagia Card: Denies: chest pain, palpitations, edema, swelling of feet/ankles, dyspnea on exertion or orthopnea Resp: Denies: dyspnea, productive cough or non-productive cough GI: Denies: abdominal pain, nausea, vomiting, diarrhea, constipation or hematochezia : Denies: flank pain, dysuria or hematuria Musc: Reports: back pain; Denies: neck pain or extremity swelling Skin/Breast: Denies: rash or new lesions Neuro: Denies: headache(s), numbness in extremities or weakness in extremities [facility] ED PFSH: Medical History Allergic contact dermatitis Encounter for long-term (current) use of NSAIDs Encounter for long-term opiate analgesic use Intervertebral disc disorder with radiculopathy of lumbosacral 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 Low back pain 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Surgical History History of eye prosthesis Family History Mother Diabetes Father Heart disease Arthritis Social History Smoking and tobacco status: former smoker Alcohol intake: never Lives independently: Yes Household members: family and children Housing: House Marital status: Single Current occupational status: unemployed Physical Exam Const: COMMON NORMALS: no acute distress, patient oriented x3 and alert HENMT: COMMON NORMALS: normocephalic HEAD & SCALP: normocephalic FACE & SINUS: sinus tenderness maxillary (Bilateral) MOUTH: Normal oral and palatal mucosa present THROAT: posterior oropharynx normal and uvula midline Neck/C-Spine: COMMON NORMALS: supple GENERAL: Yes normal visual inspection Resp: COMMON NORMALS: normal respiratory effort, No retractions, No use of accessory muscles and clear to auscultation bilaterally AUSCULTATION: clear to auscultation bilaterally Cardio: COMMON NORMALS: regular rate, regular rhythm, S1 normal heart sound present, S2 normal heart sound present, No gallops present (Cardio), No clicks present (Cardio), No murmurs present (Cardio) and Peripheral pulses 2+ throughout RATE: regular rate RHYTHM: regular rhythm HEART SOUNDS: S1 normal heart sound present and S2 normal heart sound present PERIPHERAL PULS ES: Peripheral pulses 2+ throughout GI: COMMON NORMALS: Normal to inspection, nondistended, normoactive bowel sounds present, Soft to palpation, non-tender and no masses PALPATION: Yes Soft to palpation : COMMON NORMALS: Yes no CVA tenderness BLADDER/KIDNEY EXAM: Yes no CVA tenderness Back/Pelvis: COMMON NORMALS: no CVA tenderness LUMBAR SPINE/LOWER BACK: Yes pain with ROM and Yes paraspinal muscle tenderness Lumbar paraspinal muscle tenderness: bilateral Bilateral lumbar paraspinal muscle tenderness: L4 and L5 Extremity: COMMON NORMALS: normal to inspection Neuro: COMMON NORMALS: patient oriented x3 SENSORIUM/ORIENTATION: Yes alert GAIT: Yes Normal gait present Skin: GENERAL SKIN EXAM: dry skin Course Vital Signs: Vital signs: Vital Signs Temperature 98.1 F 09/30/22 11:13 Pulse Rate 79 09/30/22 11:13 Respiratory Rate 17 09/30/22 11:13 Blood Pressure 97/63 09/30/22 11:13 Pulse Oximetry 97 09/30/22 11:13 Oxygen Delivery Me thod 09/30/22 11:13 [facility] - General Adult Medical Decision Making Patient is a 47-year-old female comes to the ED with lower back pain and sinus infection. Patient states that her sinus congestion and pain started approximately 5 days ago. Her lower back pain is chronic, but she is having an acute flareup that started about 3 days ago. She rates her pain a 6 out of 10. Pain is located in the lower back and radiates down into right and left legs. Denies any cauda equina symptoms. Denies any fevers. Vitals stable. Patient has some lumbar paraspinal muscle tenderness bilaterally around L4 and L5. She also has some maxillary sinus tenderness bilaterally. Rest of exam is benign. Patient was given a dose of clindamycin, Toradol, Norflex and Decadron here in the ED. She was stable for discharge home and diagnosed with lumbar radiculopathy and sinusitis. Sent home with a prescription for NSAID, musclerelaxer antibiotic and steroid Dosepak. Told to follow-up with her PCP in the next week for reevaluation. Return to ED precautions given. Patient understood and agreed with plan. Discharge Plan Discharge Patient Disposition: Home Clinical Impression: Lumbar radiculopathy Sinusitis Qualifiers: Sinusitis location: maxillary Chronicity: acute Recurrence: non-recurrent Qualified Code(s): J01.00 - Acute maxillary sinusitis, unspecified Condition: Stable Prescriptions: New Celebrex 100 mg capsule 100 mg PO BID PRN (Reason: pain) Qty: 20 0RF cyclobenzaprine 10 mg tablet 10 mg PO BID PRN (Reason: muscle spasm) Qty: 20 0RF Medrol (Bg) 4 mg tablets,dose pack See Rx Instructions .ROUTE .COMPLEX Qty: 21 0RF Rx Instructions: orally per package directions clindamycin HCl 150 mg capsule 300 mg PO QID 7 Days Qty: 56 0RF No Action gabapentin 300 mg capsule 1,200 mg PO TID buprenorphine HCl 8 mg tablet, sublingual 16 mg SUBLINGUAL DAILY fluconazole [Diflucan] 150 mg tablet 150 mg PO DAILY Qty: 6 0RF Rx Instructions: for 3 days, then repeat 1 week later Ventolin HFA 90 mcg/actuation HFA aerosol inhaler 1 - 2 inh inhalation Q6H PRN (Reason: shortness of breath or wheezing) Qty: 6.7 0RF methocarbamol 750 mg tablet 750 mg PO TID Discharge Orders: Discharge ED (Routine); Ordered 09/30/22 Ordered By: Yoan Cleary Discharge Diet: Regular Discharge Activity: Increase activity as tolerated Patient Instructions: Sinusitis (ED), Lumbar Radiculopathy (ED) Activity Restrictions/Additional Instructions: Follow-up with medical provider as directed in the next 5 to 7 days for reevaluation. Take medications as prescribed. Return to the ER or your medical provider if condition worsens. Please read and understand discharge instructions. Thank you for choosing [facility] for your healthcare needs today. Please realize this is an emergency room and that we are providing you with a medical screening exam and this may not be complete and all inclusive of all the testing and or work up that you may need to determine your ailment or severity of your illness. It is very important that you follow up as instructed or that you return to the Emergency Department should you have concerns or if your condition changes or worsens in any way. Coding Level of Care Code ED Certified Pedorthotist for Julianna Irene
[2022-09-30] MEDS: clindamycin 150 mg Capsule 300 MG PO (11:40)
[2022-09-30] MEDS: ketorolac 60 mg/2 mL INJ IM (11:41)
[2022-09-30] MEDS: dexamethasone 10 mg/mL INJ IM (11:41)
[2022-09-30] MEDS: orphenadrine 30 mg/mL Inj 2 mL 60 MG IM (11:42)
--- NOTE | 2022-10-06 12:55 | DCPLANNER ---
customer consulting manager called patient due to no primary care physician - patient stated that she sees Nubia Lux.
== END 2022-09-30 11:52 | disposition home or self-care (01) ==
PROVIDERS: Emergency Provider Physician Assistant
DX: J01.00 Acute maxillary sinusitis, unspecified (principal); M54.16 Radiculopathy, lumbar region; Z87.891 Personal history of nicotine dependence
CPT/HCPCS: 96372; 99284; J1100; J1885; J2360

== ENCOUNTER → 2022-10-23 18:44 | Outpatient (BNVA) | payer BC, MEDICAID, SELFPAY | PROVIDERS: Visit Provider Registered Nurse Neonatal Intensive Care | DX: R39.9 Unspecified symptoms and signs involving the genitourinary system (principal) | CPT/HCPCS: 81000; 87086 ==

== ENCOUNTER 2022-11-20 05:49 | Emergency (ER) | payer BC, MEDICAID, SELFPAY ==
[2022-11-20 05:56] VITALS: BP 107/76; PULSE 93; RESP 16; TEMP 36.6; O2SAT 97; BMI 29.2
[2022-11-20 05:59] VITALS: PULSE 90; RESP 16; O2SAT 96
[2022-11-20 06:53] VITALS: BP 104/78; PULSE 82; O2SAT 97
--- NOTE | 2022-11-20 07:24 | W.ED.SKABFB ---
HPI - Skin/Abscess/Foreign Bdy General: Chief complaint: Skin/Abscess/Foreign Body Stated complaint: rash on bilateral arms, legs and face Time Seen by Provider: 11/20/22 06:06 Source: patient Mode of arrival: ambulatory History of Present Illness: 47-year-old female presents emergency room complaining of rash bilateral inner arms or legs been itching. She thinks that she got exposed to poison jaylyn or poison oak about a month ago she seen at urgent care they gave her shot of steroids despite this its persisting she still has the rash. It is predominantly on the arms. She not had any fever sweats chills or rashes bilateral and does not have any vesicles no induration no redness or inflammation MD complaint: rash Onset (ago): month(s) (1) Location: LUE, RUE, LLE and RLE Severity: moderate Quality: pruritic Relieving factors: none Exacerbating factors: none Associated symptoms: Deny arthralgias, chills, cough, fever(s), itching, myalgias, nausea, rigidity, short of breath or vomiting Review of Systems Const: Denies: fever(s), chills, fatigue or malaise ENMT: Denies: throat pain, ear or mastoid pain, nasal discharge or nasal congestion Card: Denies: chest pain, edema, dyspnea on exertion or orthopnea Resp: Denies: dyspnea, productive cough or non-productive cough GI: Denies: abdominal pain, nausea or vomiting : Denies: flank pain, difficulty voiding, dysuria, urinary frequency or urinary urgency Skin/Breast: Denies: rash or pruritus PFSH ED PFSH: Medical History Allergic contact dermatitis Encounter for long-term (current) use of NSAIDs Encounter for long-term opiate analgesic use Intervertebral disc disorder with radiculopathy of lumbosacral region [facility] (current) use of opiate analgesic Low back pain 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Surgical History History of eye prosthesis Family History Mother Diabetes Father Heart disease Arthritis Social History (Reviewed 11/20/22 @ 07:31 by SHLOMO Aguayo Smoking and tobacco status: former smoker Alcohol intake: never Substance/Drug Use: never Lives independently: Yes Household members: family and children Housing: House Marital status: Single Current occupational status: unemployed Physical Exam Const: GENERAL APPEARANCE: cooperative and comfortable ORIENTATION/CONSCIOUSNESS: Yes awake, Yes oriented to person, Yes oriented to place and Yes oriented to time HENMT: COMMON NORMALS: normocephalic, atraumatic and hearing grossly normal bilaterally HEAD & SCALP: normocephalic and atraumatic Resp: COMMON NORMALS: normal respiratory effort, No retractions, No use of accessory muscles and clear to auscultation bilaterally AUSCULTATION: clear to auscultation bilaterally Cardio: COMMON NORMALS: regular rate, regular rhythm and No murmurs present (Cardio) RATE: regular rate RHYTHM: regular rhythm Extremity: COMMON NORMALS: normal to inspection, capillary refill normal, no clubbing, cyanosis or edema, no calf tenderness and no pedal edema Neuro: SENSORIUM/ORIENTATION: Yes oriented to person, Yes oriented to place and Yes oriented to time Skin: OTHER: Mild red rash with minimal erythema. Some aches superficial excoriation dry scaling raised areas. No vesicles no evidence of cellulitis consistent with persistent chronic contact dermatitis Course Vital Signs: Vital signs: Vital Signs Temperature 97.9 F 11/20/22 05:56 Pulse Rate 82 11/20/22 06:53 Respiratory Rate 16 11/20/22 05:59 Blood Pressure 104/78 11/20/22 06:53 Pulse Oximetry 97 11/20/22 06:53 Oxygen Delivery Me thod Room Air 11/20/22 05:59 MDM - Skin/Abscess/Foreign Bdy Medicial Decision Making Apply triamcinolone to the affected areas twice daily. Should not apply to face. If not improving follow-up with primary care. Medical Records I reviewed the patient's medical records. Lab Data I reviewed the patient's lab results. Discharge Plan Discharge Patient Disposition: Home Clinical Impression: Contact dermatitis Condition: Stable Prescriptions: New triamcinolone acetonide 0.5 % cream 1 applic topical BID Qty: 15 0RF No Action gabapentin 300 mg capsule 1,200 mg PO TID buprenorphine HCl 8 mg tablet, sublingual 16 mg SUBLINGUAL DAILY fluconazole [Diflucan] 150 mg tablet 150 mg PO DAILY Qty: 6 0RF Rx Instructions: for 3 days, then repeat 1 week later Ventolin HFA 90 mcg/actuation HFA aerosol inhaler 1 - 2 inh inhalation Q6H PRN (Reason: shortness of breath or wheezing) Qty: 6.7 0RF methocarbamol 750 mg tablet 750 mg PO TID triamcinolone acetonide 0.1 % cream 1 applic topical DAILY Qty: 30 0RF prednisone 20 mg tablet 20 mg PO BID 5 Days Qty: 10 0RF Celebrex 100 mg capsule 100 mg PO BID PRN (Reason: pain) Qty: 20 0RF cyclobenzaprine 10 mg tablet 10 mg PO BID PRN (Reason: muscle spasm) Qty: 20 0RF Discharge Orders: Discharge ED (Routine); Ordered 11/20/22 Ordered By: Duong Kiser Patient Instructions: Contact Dermatitis (ED), Opioid Safety, Pain Management Activity Restrictions/Additional Instructions: You were seen for a rash on the arms. Apply to topical steriod twice daily to the area of the rash on the arms. DO NOT apply this topical steriod to the face. If the rash does not improve follow up with your primary care physician. Coding Level of Care Code ED Civil Defense Director for Julianna Irene
--- NOTE | 2022-11-28 13:38 | DCPLANNER ---
TCM called patient due to no primary care provider - no answer at this time.
== END 2022-11-20 06:53 | disposition home or self-care (01) ==
PROVIDERS: Emergency Provider Family Medicine
DX: L25.9 Unspecified contact dermatitis, unspecified cause (principal); Z87.891 Personal history of nicotine dependence
CPT/HCPCS: 99283

== ENCOUNTER 2022-11-22 08:53 | Emergency (ER) | payer BC, MEDICAID, SELFPAY ==
[2022-11-22 09:16] VITALS: PULSE 93; TEMP 36.8; O2SAT 96; BMI 29.2
--- NOTE | 2022-11-22 09:19 | XRR_ITS ---
PROCEDURE INFORMATION: Exam: XR Right Foot Exam date and time: 11/22/2022 9:42 AM Age: 47 years old Clinical indication: Injury or trauma; Fall; Sprain or strain; Foot; Right TECHNIQUE: Imaging protocol: Radiologic exam of the right foot. Views: 3 or more views. COMPARISON: No relevant prior studies available. FINDINGS: Bones/joints: Tarsometatarsal alignment is suboptimally evaluated on the frontal view oblique views demonstrate no malalignment. Joint spaces are preserved. There is a 3 mm osseous fragment adjacent to the proximal lateral margin of the proximal 1st phalanx. There is a smoothly marginated adjacent defect in the proximal 1st phalanx. Soft tissues: Visible soft tissues are unremarkable. XR/XR foot RT min 3V* [id number] IMPRESSION: 1. Avulsion fracture of indeterminate age versus accessory ossification center at the base of the proximal 1st phalanx laterally. Correlate with the site of tenderness. 2. Limited assessment of tarsometatarsal alignment. If there is clinical suspicion of Lisfranc injury, then repeat radiographs and/or MRI should be considered.
--- NOTE | 2022-11-22 09:19 | XRR_ITS ---
PROCEDURE INFORMATION: Exam: XR Right Ankle Exam date and time: 11/22/2022 9:42 AM Age: 47 years old Clinical indication: Injury or trauma; Fall; Sprain or strain; Ankle; Right TECHNIQUE: Imaging protocol: Radiologic exam of the right ankle. Views: 3 or more views. COMPARISON: No relevant prior studies available. FINDINGS: Bones/joints: Alignment is normal. Joint spaces are preserved. No acute fracture. Soft tissues: There is lateral soft tissue edema. XR/XR ankle RT min 3V* [id number] IMPRESSION: 1. No osseous abnormality. 2. Lateral soft tissue edema.
--- NOTE | 2022-11-22 11:20 | W.ED.EXTPRO ---
HPI - Extremity Problem General: Chief complaint: Extremity Injury, Lower Stated complaint: fall Time Seen by Provider: 11/22/22 10:33 Source: patient Mode of arrival: wheelchair Limitations: no limitations History of Present Illness: Patient presents to the emergency department today for evaluation treatment of injury sustained to her right ankle and right foot just prior to arrival. Patient states she was walking down some outside steps when she fell. Patient states she fell a couple of steps to the ground, affecting her right leg. Patient has not been able to bear weight due to pain of her foot and ankle since the injury. She does have quite a bit of lateral ankle swelling but, complains of midfoot pain as well. Patient states she has a known past injury affecting the base of her right great toe. 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 Low back pain 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Surgical History History of eye prosthesis Family History Mother Diabetes Father Heart disease Arthritis Social History Smoking and tobacco status: former smoker Alcohol intake: never Substance/Drug Use: never Lives independently: Yes Household members: family and children Housing: House Marital status: Single Current occupational status: unemployed Physical Exam Const: COMMON NORMALS: no acute distress, patient oriented x3 and alert HENMT: COMMON NORMALS: normocephalic, atraumatic and hearing grossly normal bilaterally HEAD & SCALP: normocephalic and atraumatic Eye: COMMON NORMALS: Equal, round and reactive pupils present, EOMs intact bilaterally and conjunctivae normal CONJUNCTIVA: Yes conjunctivae normal PUPIL: Yes Equal, round and reactive pupils present Neck/C-Spine: COMMON NORMALS: full ROM and no JVD Lymph: LYMPHATIC: no lymphadenopathy noted Resp: COMMON NORMALS: normal respiratory effort, No retractions and No use of accessory muscles Cardio: COMMON NORMALS: no JVD and regular rate RATE: regular rate Extremity: NARRATIVE EXTREMITY EXAM: Patient is unable to bear weight on the right lower extremity and, has significant amounts of pain across her foot and lateral ankle with any range of motion attempted on exam. Patient is point tender to the lateral malleolus with minimal discomfort to the medial. She has minimal discomfort to the proximal fifth metatarsal region and no Achilles attachment tenderness. Patient is tender across the midfoot-especially between the first and second and second and third metatarsal region. No signs of any abrasions or hematomas in this area. Neuro: COMMON NORMALS: patient oriented x3 SENSORIUM/ORIENTATION: Yes alert Psych: COMMON NORMALS: mental status grossly normal, Normal thought process present, cooperative and normal affect THOUGHT PROCESS: Normal thought process present Skin: COMMON NORMALS: no rashes or lesions noted and turgor normal GENERAL SKIN EXAM: no rashes or lesions noted and turgor normal Course Vital Signs: Vital signs: Vital Signs Temperature 98.3 F 11/22/22 09:16 Pulse Rate 93 11/22/22 09:16 Pulse Oximetry 96 11/22/22 09:16 Oxygen Delivery Me thod Room Air 11/22/22 09:16 MDM - Extremity (Nontraumatic) Medical Decision Making Patient presents today for evaluation treatment of injury sustained after falling from some steps. She has lateral ankle swelling with decreased range of motion due to pain as well as pain across her midfoot. Patient is not sure exactly how her foot twisted or landed and, with concerns of her point specific tenderness between her tarsals, would recommend further evaluation with orthopedics for potential Lisfranc injury. This was also noted on the patient's foot x-ray that repeat radiographs or higher level imaging would be appropriate if clinically correlated. Patient was put into a posterior short leg OCL splint with crutches to remain nonweightbearing. Note for her employer provided. Prescription for naproxen given and topical Voltaren prescribed should patient be switched to an on and off brace once seen by orthopedics. Referral to orthopedics sent to case management for this patient's follow-up. Differential Diagnosis Likely gout, cellulitis and lower extremity edema (Ankle fracture, ankle sprain, foot fracture, foot sprain, Lisfranc injury) Lab Data Radiology Impressions Ankle X-Ray 11/22/22 09:19 IMPRESSION: 1. No osseous abnormality. 2. Lateral soft tissue edema. Foot X-Ray 11/22/22 09:19 IMPRESSION: 1. Avulsion fracture of indeterminate age versus accessory ossification center at the base of the proximal 1st phalanx laterally. Correlate with the site of tenderness. 2. Limited assessment of tarsometatarsal alignment. If there is clinical suspicion of Lisfranc injury, then repeat radiographs and/or MRI should be considered. Discharge Plan Discharge Patient Disposition: Home Clinical Impression: Ankle sprain and strain, Pain of right midfoot Condition: Stable Prescriptions: New naproxen 500 mg tablet 500 mg PO BID PRN (Reason: pain) Qty: 20 0RF Voltaren Arthritis Pain 1 % gel 4 g topical QID Qty: 100 0RF Rx Instructions: apply to single knee, ankle, foot; for foot includes sole/toes/top of foot No Action gabapentin 300 mg capsule 1,200 mg PO TID buprenorphine HCl 8 mg tablet, sublingual 16 mg SUBLINGUAL DAILY fluconazole [Diflucan] 150 mg tablet 150 mg PO DAILY Qty: 6 0RF Rx Instructions: for 3 days, then repeat 1 week later Ventolin HFA 90 mcg/actuation HFA aerosol inhaler 1 - 2 inh inhalation Q6H PRN (Reason: shortness of breath or wheezing) Qty: 6.7 0RF methocarbamol 750 mg tablet 750 mg PO TID dexamethasone sodium phosphate 4 mg/mL solution 8 mg IM ONCE Qty: 2 0RF amoxicillin-pot clavulanate 875-125 mg tablet 1 tab PO BID 7 Days Qty: 14 0RF triamcinolone acetonide 0.1 % cream 1 applic topical DAILY Qty: 30 0RF prednisone 20 mg tablet 20 mg PO BID 5 Days Qty: 10 0RF triamcinolone acetonide 0.5 % cream 1 applic topical BID Qty: 15 0RF Celebrex 100 mg capsule 100 mg PO BID PRN (Reason: pain) Qty: 20 0RF cyclobenzaprine 10 mg tablet 10 mg PO BID PRN (Reason: muscle spasm) Qty: 20 0RF Discharge Orders: Discharge ED (Routine); Ordered 11/22/22 Ordered By: Tiffany Crawford Discharge Diet: Usual diet Discharge Activity: Limit activity as instructed Patient Instructions: Ankle Sprain (ED) Activity Restrictions/Additional Instructions: X-ray today shows no signs of any acute ankle fracture. There is quite a bit of lateral swelling indicating soft tissue injury which is referred to as an ankle sprain. The still require time to heal. There are no obvious signs of fracture to your foot however, the location of your pain and tenderness between your first and second and second and third metatarsal area is concerning for a soft tissue injury which results in over separation between these bones with weightbearing. Unfortunately, these require a higher level of imaging and, should there be concerns of the specific injuries, would need to be followed by orthopedics. For that reason I have gone ahead and referred you on to Ortho/podiatry for this follow-up. Until then, we are going to place you in a splint to prevent any excess mobility or weightbearing to this area. We would like you to use crutches at all times and should not place any weight on your right leg. Try and keep your foot up and elevated is much as possible. We have prescribed some naproxen to help with inflammation and pain. You can still use Tylenol if needed. I have prescribed you some topical pain medication should your evaluation through orthopedics allow for a removable brace and you again have access to your ankle and foot. Stand Alone Forms: Work/School Release Coding Level of Care Code ED Medical Staff Specialist for Julianna Irene
--- NOTE | 2022-11-22 15:28 | DCPLANNER ---
Addendum entered by Jenny Pascual 11/24/22 13:01: Patient had a followup appointment scheduled with ortho - patient did not attend appointment. Original Note: it audit manager had message to schedule a follow up appointment for patient with ortho. it audit manager sent patients information to the front office staff at ortho. Patients information will be printed and reviewed. Clinic will call patient with appointment information.
--- NOTE | 2022-11-28 14:24 | DCPLANNER ---
public works manager called patient due to no primary care physician - no answer at this time.
== END 2022-11-22 12:01 | disposition home or self-care (01) ==
PROVIDERS: Emergency Provider Physician Assistant
DX: S93.401A Sprain of unspecified ligament of right ankle, initial encounter (principal); S96.911A Strain of unspecified muscle and tendon at ankle and foot level, right foot, initial encounter; Z87.891 Personal history of nicotine dependence; W10.8XXA Fall (on) (from) other stairs and steps, initial encounter
CPT/HCPCS: 73610; 73630; 99283; E0114; J1100

== ENCOUNTER 2022-12-05 13:57 | Emergency (ER) | payer BC, MEDICAID, SELFPAY ==
[2022-12-05 14:12] VITALS: BP 87/58; PULSE 87; RESP 16; TEMP 36.6; O2SAT 96; BMI 29.2
--- NOTE | 2022-12-05 14:40 | W.ED.ANIMALB ---
HPI - Animal Bite General: Chief Complaint: Animal Bite Stated Complaint: dog bite to face Time Seen by Provider: 12/05/22 14:32 Source: patient Mode of arrival: ambulatory Limitations: no limitations History of Present Illness: 47-year-old female states that the neighbors dog bit her in the face roughly 1 hour ago she does have an abrasion to her face. She states she has pain she rates a 2 out of 10 she has no bleeding no laceration. She is unsure of vaccination status of the dog but states that they typically are not aggressive had no signs of rabies. Associated symptoms: Reports headache(s); Deny chills or fever(s) Review of Systems Const: Denies: fever(s), chills, body aches or change in appetite Eyes: Denies: eye discomfort ENMT: Denies: throat pain or dental pain Card: Denies: chest pain Resp: Denies: dyspnea GI: Denies: abdominal pain, nausea or vomiting Musc: Denies: neck pain or back pain Skin/Breast: Denies: rash Neuro: Reports: headache(s) PFS ED PFSH: Medical History Allergic contact dermatitis Encounter for long-term (current) use of NSAIDs Encounter for long-term opiate analgesic use Intervertebral disc disorder with radiculopathy of lumbosacral region [facility] (current) use of opiate analgesic Low back pain 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Surgical History History of eye prosthesis Family History Mother Diabetes Father Heart disease Arthritis Social History Smoking and tobacco status: former smoker Alcohol intake: never Substance/Drug Use: never Lives independently: Yes Household members: family and children Housing: House Marital status: Single Current occupational status: unemployed Physical Exam Const: COMMON NORMALS: no acute distress and patient oriented x3 HENMT: OTHER: 2 small abrasions to forehead no lacerations Eye: COMMON NORMALS: conjunctivae normal CONJUNCTIVA: Yes conjunctivae normal Neck/C-Spine: COMMON NORMALS: supple Chest: COMMONS NORMALS: normal inspection of the chest Resp: COMMON NORMALS: normal respiratory effort Cardio: COMMON NORMALS: regular rate RATE: regular rate GI: INSPECTION: Yes normal to inspection Extremity: COMMON NORMALS: normal to inspection Neuro: COMMON NORMALS: patient oriented x3 Psych: COMMON NORMALS: mental status grossly normal Skin: COMMON NORMALS: no rashes or lesions noted GENERAL SKIN EXAM: no rashes or lesions noted Course Vital Signs: Vital signs: Vital Signs Temperature 97.8 F 12/05/22 14:12 Pulse Rate 87 12/05/22 14:12 Respiratory Rate 16 12/05/22 14:12 Blood Pressure 87/58 12/05/22 14:12 Pulse Oximetry 96 12/05/22 14:12 Oxygen Delivery Me thod Room Air 12/05/22 14:12 MDM - Animal Bite Medical Decision Making Patient presents with dog bite to the face she has very small abrasions no large lacerations or puncture wounds. Patient given tetanus here we will place her on Augmentin for home. She is unsure of vaccination status but does know dogs location she did give the option of starting rabies vaccine or have animal control watch the dog she is going to call animal control and come back if they are not able to determine if the dog is at rabies risk Discharge Plan Discharge Patient Disposition: Home Clinical Impression: Dog bite, Poison carolann Condition: Stable Prescriptions: New Augmentin 500-125 mg tablet 1 tab PO BID Qty: 14 0RF No Action gabapentin 300 mg capsule 1,200 mg PO TID buprenorphine HCl 8 mg tablet, sublingual 16 mg SUBLINGUAL DAILY fluconazole [Diflucan] 150 mg tablet 150 mg PO DAILY Qty: 6 0RF Rx Instructions: for 3 days, then repeat 1 week later Ventolin HFA 90 mcg/actuation HFA aerosol inhaler 1 - 2 inh inhalation Q6H PRN (Reason: shortness of breath or wheezing) Qty: 6.7 0RF methocarbamol 750 mg tablet 750 mg PO TID dexamethasone sodium phosphate 4 mg/mL solution 8 mg IM ONCE Qty: 2 0RF amoxicillin-pot clavulanate 875-125 mg tablet 1 tab PO BID 7 Days Qty: 14 0RF triamcinolone acetonide 0.1 % cream 1 applic topical DAILY Qty: 30 0RF prednisone 20 mg tablet 20 mg PO BID 5 Days Qty: 10 0RF triamcinolone acetonide 0.5 % cream 1 applic topical BID Qty: 15 0RF naproxen 500 mg tablet 500 mg PO BID PRN (Reason: pain) Qty: 20 0RF Voltaren Arthritis Pain 1 % gel 4 g topical QID Qty: 100 0RF Rx Instructions: apply to single knee, ankle, foot; for foot includes sole/toes/top of foot Celebrex 100 mg capsule 100 mg PO BID PRN (Reason: pain) Qty: 20 0RF cyclobenzaprine 10 mg tablet 10 mg PO BID PRN (Reason: muscle spasm) Qty: 20 0RF Discharge Orders: Discharge ED (Routine); Ordered 12/05/22 Ordered By: Zachariah Sanabria Discharge Diet: Advance as tolerated Discharge Activity: Resume usual activity Patient Instructions: Animal Bite (ED), Poison Carolann (ED) Coding Level of Care Code ED Commissioned Fire Officer for Julianna Irene
[2022-12-05] MEDS: dexamethasone 10 mg/mL INJ IM (14:48)
[2022-12-05] MEDS: triamcinolone 40 mg/mL SDV 80 MG IM (14:49)
[2022-12-05] MEDS: tetanus-dipt-pertussis 0.5 mL SDV IM (14:53)
--- NOTE | 2022-12-10 12:49 | DCPLANNER ---
technical sales support manager called patient due to no primary care physician - no answer at this time.
== END 2022-12-05 15:08 | disposition home or self-care (01) ==
PROVIDERS: Emergency Provider Emergency Medicine
DX: S00.81XA Abrasion of other part of head, initial encounter (principal); W54.0XXA Bitten by dog, initial encounter; Z23 Encounter for immunization
CPT/HCPCS: 90471; 90715; 96372; 99284; J1100; J3301

== ENCOUNTER 2022-12-06 18:47 | Emergency (ER) | payer BC, MEDICAID, SELFPAY ==
[2022-12-06 18:56] VITALS: BP 109/62; PULSE 88; RESP 16; TEMP 36.7; O2SAT 97; BMI 29.2
--- NOTE | 2022-12-06 19:08 | ED_ITS ---
HPI - Animal Bite General: Chief Complaint: Animal Bite Stated Complaint: Dog bite Time Seen by Provider: 12/06/22 19:08 History of Present Illness: 47-year-old female comes in today wanting vaccination for rabies due to her recent dog bite. Patient was bit by a dog to her face last night. The dog was unknown dog to her and it was unsure about the dog's vaccination. Patient was concerned and felt uncomfortable without getting the postexposure prophylaxis series for rabies. Patient has a superficial puncture wound to the central forehead and the right naris. No significant redness or swelling is noted. Patient was updated on her tetanus last night and started on Augmentin. Review of Systems General: Reports: 10 or more systems reviewed and unremarkable except in HPI and below Skin/Breast: Reports: other (Patient wound) [facility] ED PFSH: Medical History Allergic contact dermatitis Encounter for long-term (current) use of NSAIDs Encounter for long-term opiate analgesic use Intervertebral disc disorder with radiculopathy of lumbosacral region [facility] (current) use of opiate analgesic Low back pain 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Surgical History History of eye prosthesis Family History Mother Diabetes Father Heart disease Arthritis Social History Smoking and tobacco status: former smoker Alcohol intake: never Substance/Drug Use: never Lives independently: Yes Household members: family and children Housing: House Marital status: Single Current occupational status: unemployed Physical Exam Const: COMMON NORMALS: alert HENMT: COMMON NORMALS: normocephalic HEAD & SCALP: normocephalic Neck/C-Spine: COMMON NORMALS: no lymphadenopathy Resp: COMMON NORMALS: normal respiratory effort and clear to auscultation bilaterally AUSCULTATION: clear to auscultation bilaterally Cardio: COMMON NORMALS: regular rate and regular rhythm RATE: regular rate RHYTHM: regular rhythm GI: COMMON NORMALS: non-tender Extremity: COMMON NORMALS: normal to inspection Neuro: SENSORIUM/ORIENTATION: Yes alert Skin: NARRATIVE SKIN EXAM: Covered contact dermatitis to the forearms and lower legs Course Vital Signs: Vital signs: Vital Signs Temperature 98.0 F 12/06/22 18:56 Pulse Rate 88 12/06/22 18:56 Respiratory Rate 16 12/06/22 18:56 Blood Pressure 109/62 12/06/22 18:56 Pulse Oximetry 97 12/06/22 18:56 Oxygen Delivery Me thod Room Air 12/06/22 18:56 MDM - Animal Bite Medical Decision Making 47-year-old female comes in today for concerns of rabies exposure. On exam patient has some superficial wounds to the face from a dog bite last night. Patient was seen yesterday and had thought about the issues of receiving postexposure rabies prophylaxis and decided that she would go ahead with the series. Differential diagnosis includes wound infection, exposure to rabies, exposure to tetanus, need for prophylaxis antibiotics. No sign of wound infection is noted at this time. Patient was started on postexposure prophylaxis series for rabies. Patient was given immunoglobulin and started on the rabies vaccine. Patient was instructed to return on day 3, day 7, and day 14 for completion of series. Discharge Plan Discharge Patient Disposition: Home Clinical Impression: Suspected rabies Bite from dog Qualifiers: Encounter type: subsequent encounter Qualified Code(s): W54.0XXD - Bitten by dog, subsequent encounter Condition: Stable Prescriptions: New hydroxyzine HCl 25 mg tablet 25 mg PO Q4H PRN (Reason: itching) Qty: 60 0RF No Action gabapentin 300 mg capsule 1,200 mg PO TID buprenorphine HCl 8 mg tablet, sublingual 16 mg SUBLINGUAL DAILY fluconazole [Diflucan] 150 mg tablet 150 mg PO DAILY Qty: 6 0RF Rx Instructions: for 3 days, then repeat 1 week later Ventolin HFA 90 mcg/actuation HFA aerosol inhaler 1 - 2 inh inhalation Q6H PRN (Reason: shortness of breath or wheezing) Qty: 6.7 0RF methocarbamol 750 mg tablet 750 mg PO TID dexamethasone sodium phosphate 4 mg/mL solution 8 mg IM ONCE Qty: 2 0RF amoxicillin-pot clavulanate 875-125 mg tablet 1 tab PO BID 7 Days Qty: 14 0RF triamcinolone acetonide 0.1 % cream 1 applic topical DAILY Qty: 30 0RF prednisone 20 mg tablet 20 mg PO BID 5 Days Qty: 10 0RF triamcinolone acetonide 0.5 % cream 1 applic topical BID Qty: 15 0RF naproxen 500 mg tablet 500 mg PO BID PRN (Reason: pain) Qty: 20 0RF Voltaren Arthritis Pain 1 % gel 4 g topical QID Qty: 100 0RF Rx Instructions: apply to single knee, ankle, foot; for foot includes sole/toes/top of foot Celebrex 100 mg capsule 100 mg PO BID PRN (Reason: pain) Qty: 20 0RF cyclobenzaprine 10 mg tablet 10 mg PO BID PRN (Reason: muscle spasm) Qty: 20 0RF Augmentin 500-125 mg tablet 1 tab PO BID Qty: 14 0RF doxycycline hyclate 100 mg tablet 100 mg PO BID 5 Days Qty: 10 0RF Discharge Orders: Discharge ED (Routine); Ordered 12/06/22 Ordered By: Dexter Newman Discharge Diet: Usual diet Discharge Activity: Increase activity as tolerated Patient Instructions: Rabies (ED) Activity Restrictions/Additional Instructions: Continue with medications as directed. Use hydroxyzine as needed for itching. Follow-up with primary care for further instructions. Return on days 3, 7, and 14 to complete rabies vaccination series. Coding Level of Care Code ED Instrument Operator for Julianna Irene
[2022-12-06] MEDS: rabies vaccine 2.5 unit SDV IM (20:15)
[2022-12-06] MEDS: hyDROXYzine 25 mg Capsule PO (20:16)
[2022-12-06 20:43] VITALS: PULSE 73; RESP 16; O2SAT 97
--- NOTE | 2022-12-10 13:23 | DCPLANNER ---
manager post called patient due to no primary care physician - no answer at this time.
== END 2022-12-06 20:47 | disposition home or self-care (01) ==
PROVIDERS: Emergency Provider Nurse Practitioner Family
DX: Z29.14 Encounter for prophylactic rabies immune globulin (principal); Z20.3 Contact with and (suspected) exposure to rabies; Z23 Encounter for immunization; Z87.891 Personal history of nicotine dependence; W54.0XXA Bitten by dog, initial encounter
CPT/HCPCS: 90375; 90471; 90675; 99283

== ENCOUNTER 2022-12-09 16:01 | Emergency (ER) | payer BC, MEDICAID, SELFPAY ==
--- NOTE | 2022-12-09 16:10 | ED_ITS ---
HPI - General Adult General: Stated complaint: 2nd round of rabies, lower back pain Time Seen by Provider: 12/09/22 16:03 Source: patient Mode of arrival: ambulatory Limitations: no limitations History of Present Illness: 47-year-old female who is here for her second rabies vaccine she is bit by dog 4 days ago had first rabies vaccine 3 days ago she states that she is post get steroid injections in her back and they did not do it this week due to her being on the vaccination protocol she states she is got pain that is chronic in nature and would like a Toradol shot for it. She denies any severe pain rates her pain a 5 out of 10. Denies any bowel or bladder incontinence. Associated symptoms: Deny chest pain, dyspnea, headache(s), nausea, rash or vomiting Review of Systems Const: Denies: fever(s), chills or body aches ENMT: Denies: throat pain or dental pain Card: Denies: chest pain Resp: Denies: dyspnea GI: Denies: abdominal pain, nausea, vomiting or diarrhea Musc: Reports: back pain; Denies: neck pain Skin/Breast: Denies: rash Neuro: Denies: headache(s) PFSH ED PFSH: Medical History Allergic contact dermatitis Encounter for long-term (current) use of NSAIDs Encounter for long-term opiate analgesic use Intervertebral disc disorder with radiculopathy of lumbosacral region [facility] (current) use of opiate analgesic Low back pain 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Surgical History History of eye prosthesis Family History Mother Diabetes Father Heart disease Arthritis Social History Smoking and tobacco status: former smoker Alcohol intake: never Substance/Drug Use: never Lives independently: Yes Household members: family and children Housing: House Marital status: Single Current occupational status: unemployed Physical Exam Const: COMMON NORMALS: no acute distress and patient oriented x3 HENMT: COMMON NORMALS: normocephalic HEAD & SCALP: normocephalic Eye: COMMON NORMALS: conjunctivae normal CONJUNCTIVA: Yes conjunctivae normal Neck/C-Spine: COMMON NORMALS: full ROM Chest: COMMONS NORMALS: normal inspection of the chest Resp: COMMON NORMALS: normal respiratory effort Cardio: COMMON NORMALS: regular rate RATE: regular rate GI: INSPECTION: Yes normal to inspection Back/Pelvis: LUMBAR SPINE/LOWER BACK: Yes normal to inspection Extremity: COMMON NORMALS: normal to inspection Neuro: COMMON NORMALS: patient oriented x3 Psych: COMMON NORMALS: mental status grossly normal Skin: COMMON NORMALS: no rashes or lesions noted GENERAL SKIN EXAM: no rashes or lesions noted [facility] - General Adult Medical Decision Making Patient presents here with need for her second rabies vaccine she also has chronic back pain she had missed her pain appointment due to the not wanting is here with her being in the rabies vaccine did give her Toradol and Decadron shot did give her second dose of vaccine she is stable for discharge she is to follow-up PCP and return if worsening. Medical Records I reviewed the patient's medical records. Lab Data I reviewed the patient's lab results. Discharge Plan Discharge Patient Disposition: Home Clinical Impression: Need for rabies vaccination, Back pain Condition: Stable Prescriptions: No Action gabapentin 300 mg capsule 1,200 mg PO TID buprenorphine HCl 8 mg tablet, sublingual 16 mg SUBLINGUAL DAILY fluconazole [Diflucan] 150 mg tablet 150 mg PO DAILY Qty: 6 0RF Rx Instructions: for 3 days, then repeat 1 week later Ventolin HFA 90 mcg/actuation HFA aerosol inhaler 1 - 2 inh inhalation Q6H PRN (Reason: shortness of breath or wheezing) Qty: 6.7 0RF methocarbamol 750 mg tablet 750 mg PO TID dexamethasone sodium phosphate 4 mg/mL solution 8 mg IM ONCE Qty: 2 0RF amoxicillin-pot clavulanate 875-125 mg tablet 1 tab PO BID 7 Days Qty: 14 0RF triamcinolone acetonide 0.1 % cream 1 applic topical DAILY Qty: 30 0RF prednisone 20 mg tablet 20 mg PO BID 5 Days Qty: 10 0RF triamcinolone acetonide 0.5 % cream 1 applic topical BID Qty: 15 0RF naproxen 500 mg tablet 500 mg PO BID PRN (Reason: pain) Qty: 20 0RF Voltaren Arthritis Pain 1 % gel 4 g topical QID Qty: 100 0RF Rx Instructions: apply to single knee, ankle, foot; for foot includes sole/toes/top of foot hydroxyzine HCl 25 mg tablet 25 mg PO Q4H PRN (Reason: itching) Qty: 60 0RF Celebrex 100 mg capsule 100 mg PO BID PRN (Reason: pain) Qty: 20 0RF cyclobenzaprine 10 mg tablet 10 mg PO BID PRN (Reason: muscle spasm) Qty: 20 0RF Augmentin 500-125 mg tablet 1 tab PO BID Qty: 14 0RF doxycycline hyclate 100 mg tablet 100 mg PO BID 5 Days Qty: 10 0RF Discharge Orders: Discharge ED (Routine); Ordered 12/09/22 Ordered By: Zachariah Sanabria Discharge Diet: Advance as tolerated Discharge Activity: Resume usual activity Patient Instructions: Rabies Vaccine (By injection), Back Pain (ED) Coding Level of Care Code ED Inspector Subassemblies for Julianna Irene
[2022-12-09 16:15] VITALS: BP 129/82; PULSE 84; TEMP 36.7; O2SAT 95; BMI 28.8
[2022-12-09] MEDS: dexamethasone 10 mg/mL INJ IM (16:17)
[2022-12-09] MEDS: rabies vaccine 2.5 unit SDV IM (16:24)
[2022-12-09] MEDS: ketorolac 30 mg/mL INJ IM (16:29)
--- NOTE | 2022-12-15 14:59 | DCPLANNER ---
product manager e commerce called patient due to no primary care physician - no answer at this time.
== END 2022-12-09 16:30 | disposition home or self-care (01) ==
PROVIDERS: Emergency Provider Emergency Medicine
DX: Z29.14 Encounter for prophylactic rabies immune globulin (principal); Z20.3 Contact with and (suspected) exposure to rabies; Z23 Encounter for immunization; M54.50 Low back pain, unspecified; Z87.891 Personal history of nicotine dependence
CPT/HCPCS: 90471; 90675; 96372; 99284; J1100; J1885

== ENCOUNTER 2022-12-14 17:40 | Emergency (ER) | payer BC, MEDICAID, SELFPAY ==
[2022-12-14 17:54] VITALS: BP 103/64; PULSE 86; RESP 14; TEMP 36.8; O2SAT 95; BMI 29.2
--- NOTE | 2022-12-14 18:01 | W.ED.RECABL ---
HPI - Recheck/Abnormal Lab/Rx General: Chief Complaint: Recheck/Abnormal Lab/Rx Stated Complaint: third rabies shot Time Seen by Provider: 12/14/22 17:50 Source: patient Mode of arrival: ambulatory Limitations: no limitations History of Present Illness: 47-year-old female is here for her third vaccination of rabies in a series. She has no complaints at this time denies any pain anywhere that a dog bite on her forehead is healed. Review of Systems Const: Denies: fever(s) ENMT: Denies: throat pain Card: Denies: chest pain GI: Denies: abdominal pain Musc: Denies: neck pain Neuro: Denies: headache(s) PFSH ED PFSH: Medical History Allergic contact dermatitis Encounter for long-term (current) use of NSAIDs Encounter for long-term opiate analgesic use Intervertebral disc disorder with radiculopathy of lumbosacral region [facility] (current) use of opiate analgesic Low back pain 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Surgical History History of eye prosthesis Family History Mother Diabetes Father Heart disease Arthritis Social History Smoking and tobacco status: former smoker Alcohol intake: never Substance/Drug Use: never Lives independently: Yes Household members: family and children Housing: House Marital status: Single Current occupational status: unemployed Physical Exam Const: COMMON NORMALS: no acute distress and patient oriented x3 HENMT: COMMON NORMALS: normocephalic and atraumatic HEAD & SCALP: normocephalic and atraumatic Chest: COMMONS NORMALS: normal inspection of the chest Resp: COMMON NORMALS: normal respiratory effort GI: INSPECTION: Yes normal to inspection Extremity: COMMON NORMALS: normal to inspection Neuro: COMMON NORMALS: patient oriented x3 Psych: COMMON NORMALS: mental status grossly normal Skin: COMMON NORMALS: no rashes or lesions noted GENERAL SKIN EXAM: no rashes or lesions noted Course Vital Signs: Vital signs: Vital Signs Temperature 98.2 F 12/14/22 17:54 Pulse Rate 86 12/14/22 17:54 Respiratory Rate 14 12/14/22 17:54 Blood Pressure 103/64 12/14/22 17:54 Pulse Oximetry 95 12/14/22 17:54 Oxygen Delivery Me thod Room Air 12/14/22 17:54 MDM - Recheck/Abnormal Lab/Rx Medical Decision Making Patient presents here for her third rabies vaccination she has no complaints here. Patient given her vaccination is stable for discharge Discharge Plan Discharge Patient Disposition: Home Clinical Impression: Need for rabies vaccination Condition: Stable Prescriptions: No Action gabapentin 300 mg capsule 1,200 mg PO TID buprenorphine HCl 8 mg tablet, sublingual 16 mg SUBLINGUAL DAILY fluconazole [Diflucan] 150 mg tablet 150 mg PO DAILY Qty: 6 0RF Rx Instructions: for 3 days, then repeat 1 week later Ventolin HFA 90 mcg/actuation HFA aerosol inhaler 1 - 2 inh inhalation Q6H PRN (Reason: shortness of breath or wheezing) Qty: 6.7 0RF methocarbamol 750 mg tablet 750 mg PO TID dexamethasone sodium phosphate 4 mg/mL solution 8 mg IM ONCE Qty: 2 0RF amoxicillin-pot clavulanate 875-125 mg tablet 1 tab PO BID 7 Days Qty: 14 0RF triamcinolone acetonide 0.1 % cream 1 applic topical DAILY Qty: 30 0RF prednisone 20 mg tablet 20 mg PO BID 5 Days Qty: 10 0RF triamcinolone acetonide 0.5 % cream 1 applic topical BID Qty: 15 0RF naproxen 500 mg tablet 500 mg PO BID PRN (Reason: pain) Qty: 20 0RF Voltaren Arthritis Pain 1 % gel 4 g topical QID Qty: 100 0RF Rx Instructions: apply to single knee, ankle, foot; for foot includes sole/toes/top of foot hydroxyzine HCl 25 mg tablet 25 mg PO Q4H PRN (Reason: itching) Qty: 60 0RF Celebrex 100 mg capsule 100 mg PO BID PRN (Reason: pain) Qty: 20 0RF cyclobenzaprine 10 mg tablet 10 mg PO BID PRN (Reason: muscle spasm) Qty: 20 0RF Augmentin 500-125 mg tablet 1 tab PO BID Qty: 14 0RF Discharge Orders: Discharge ED (Routine); Ordered 12/14/22 Ordered By: Zachariah Sanabria Discharge Diet: Advance as tolerated Discharge Activity: Resume usual activity Patient Instructions: Rabies Vaccine (By injection) Coding Level of Care Code ED [employer] Experience Strategy for Julianna Irene
[2022-12-14] MEDS: rabies vaccine 2.5 unit SDV IM (18:15)
--- NOTE | 2022-12-17 12:19 | DCPLANNER ---
lunch counter manager called patient due to no primary care physician - no answer at this time.
== END 2022-12-14 18:20 | disposition home or self-care (01) ==
PROVIDERS: Emergency Provider Emergency Medicine
DX: Z23 Encounter for immunization (principal)
CPT/HCPCS: 90471; 90675; 99283

== ENCOUNTER 2022-12-19 13:55 | Emergency (ER) | payer BC, MEDICAID, SELFPAY ==
[2022-12-19 14:00] VITALS: BP 119/65; PULSE 72; RESP 14; TEMP 36.5; O2SAT 96; BMI 29.2
--- NOTE | 2022-12-19 14:07 | W.ED.ANIMALB ---
HPI - Animal Bite General: Chief Complaint: Animal Bite Stated Complaint: Last Rabies shot Time Seen by Provider: 12/19/22 14:03 Source: patient Mode of arrival: ambulatory Limitations: no limitations History of Present Illness: Patient presents to the emergency department for her fourth and last in the series of rabies vaccine treatments. She is post dog bite to facial area. She states she is doing well without any symptoms at this time. complaint: animal bite Animal: dog Location: head and face Associated symptoms: Deny chills, fever(s) or headache(s) Review of Systems Const: Denies: fever(s) or chills Eyes: Denies: change in vision ENMT: Denies: odynophagia GI: Denies: nausea or vomiting : Denies: difficulty voiding, dysuria or hematuria Musc: Denies: back pain, extremity pain, extremity swelling, joint pain or joint stiffness Skin/Breast: Denies: rash or erythema Neuro: Denies: headache(s), numbness in extremities or weakness in extremities PFSH ED PFSH: Medical History Allergic contact dermatitis Encounter for long-term (current) use of NSAIDs Encounter for long-term opiate analgesic use Intervertebral disc disorder with radiculopathy of lumbosacral region [employer] (current) use of opiate analgesic Low back pain 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Surgical History History of eye prosthesis Family History Mother Diabetes Father Heart disease Arthritis Social History Smoking and tobacco status: former smoker Alcohol intake: never Substance/Drug Use: never Lives independently: Yes Household members: family and children Housing: House Marital status: Single Current occupational status: unemployed Physical Exam Narrative: EXAM NARRATIVE: She is alert appears to be in no acute distress. Cooperative. Const: COMMON NORMALS: no acute distress, average body habitus and patient oriented x3 GENERAL APPEARANCE: cooperative and comfortable HENMT: COMMON NORMALS: normocephalic, atraumatic and moist oral mucous membranes HEAD & SCALP: normocephalic and atraumatic Eye: COMMON NORMALS: Equal, round and reactive pupils present and conjunctivae normal CONJUNCTIVA: Yes conjunctivae normal PUPIL: Yes Equal, round and reactive pupils present Neck/C-Spine: COMMON NORMALS: full ROM Resp: COMMON NORMALS: normal respiratory effort, No retractions and No use of accessory muscles EFFORT & INSPECTION: Yes able to speak in complete sentences Cardio: COMMON NORMALS: regular rate and Peripheral pulses 2+ throughout RATE: regular rate PERIPHERAL PULSES: Peripheral pulses 2+ throughout Back/Pelvis: COMMON NORMALS: thoraco-lumbar ROM normal Extremity: COMMON NORMALS: normal to inspection and full ROM Neuro: COMMON NORMALS: patient oriented x3, moves all extremities and no focal motor deficits CRANIAL NERVES: Yes CN normal except as noted Psych: COMMON NORMALS: mental status grossly normal Skin: COMMON NORMALS: no rashes or lesions noted GENERAL SKIN EXAM: no rashes or lesions noted Course Vital Signs: Vital signs: Vital Signs Temperature 97.7 F 12/19/22 14:00 Pulse Rate 72 12/19/22 14:00 Respiratory Rate 14 12/19/22 14:00 Blood Pressure 119/65 12/19/22 14:00 Pulse Oximetry 96 12/19/22 14:00 Oxygen Delivery Me thod Room Air 12/19/22 14:00 MDM - Animal Bite Medical Decision Making Patient is here for her last in the series of postexposure rabies prophylaxis. She was bitten by dog. No history of any symptoms whatsoever and is tolerating the injection series well. Her clinical examination is reassuring. No evidence of ongoing local infection or systemic effects of possible rabies. She will be given her fourth and final injection with return precautions discussed. Differential Diagnosis Likely dog bite Discharge Plan Discharge Condition: Stable Prescriptions: No Action gabapentin 300 mg capsule 1,200 mg PO TID buprenorphine HCl 8 mg tablet, sublingual 16 mg SUBLINGUAL DAILY fluconazole [Diflucan] 150 mg tablet 150 mg PO DAILY Qty: 6 0RF Rx Instructions: for 3 days, then repeat 1 week later Ventolin HFA 90 mcg/actuation HFA aerosol inhaler 1 - 2 inh inhalation Q6H PRN (Reason: shortness of breath or wheezing) Qty: 6.7 0RF methocarbamol 750 mg tablet 750 mg PO TID dexamethasone sodium phosphate 4 mg/mL solution 8 mg IM ONCE Qty: 2 0RF amoxicillin-pot clavulanate 875-125 mg tablet 1 tab PO BID 7 Days Qty: 14 0RF triamcinolone acetonide 0.1 % cream 1 applic topical DAILY Qty: 30 0RF prednisone 20 mg tablet 20 mg PO BID 5 Days Qty: 10 0RF triamcinolone acetonide 0.5 % cream 1 applic topical BID Qty: 15 0RF naproxen 500 mg tablet 500 mg PO BID PRN (Reason: pain) Qty: 20 0RF Voltaren Arthritis Pain 1 % gel 4 g topical QID Qty: 100 0RF Rx Instructions: apply to single knee, ankle, foot; for foot includes sole/toes/top of foot hydroxyzine HCl 25 mg tablet 25 mg PO Q4H PRN (Reason: itching) Qty: 60 0RF Celebrex 100 mg capsule 100 mg PO BID PRN (Reason: pain) Qty: 20 0RF cyclobenzaprine 10 mg tablet 10 mg PO BID PRN (Reason: muscle spasm) Qty: 20 0RF Augmentin 500-125 mg tablet 1 tab PO BID Qty: 14 0RF Coding Level of Care Code ED Machine Overhauler for Chg [employer]
--- NOTE | 2022-12-19 14:15 | W.ED.RECABL ---
HPI - Recheck/Abnormal Lab/Rx General: Chief Complaint: Animal Bite Stated Complaint: Last Rabies shot Time Seen by Provider: 12/19/22 14:03 Source: patient Mode of arrival: ambulatory Limitations: no limitations History of Present Illness: This patient is here for her final rabies vaccination from a post animal bite exposure. complaint: other (Rabies postexposure prophylaxis) Symptoms since prior visit: no new symptoms Review of Systems General: Reports: 10 or more systems reviewed and unremarkable except in HPI and below PFSH ED PFSH: Medical History Allergic contact dermatitis Encounter for long-term (current) use of NSAIDs Encounter for long-term opiate analgesic use Intervertebral disc disorder with radiculopathy of lumbosacral region detention (current) use of opiate analgesic Low back pain 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Surgical History History of eye prosthesis Family History Mother Diabetes Father Heart disease Arthritis Social History Smoking and tobacco status: former smoker Alcohol intake: never Substance/Drug Use: never Lives independently: Yes Household members: family and children Housing: House Marital status: Single Current occupational status: unemployed Physical Exam Narrative: EXAM NARRATIVE: The patient is alert answers questions appropriately and in no acute distress. Const: COMMON NORMALS: no acute distress and patient oriented x3 GENERAL APPEARANCE: cooperative and comfortable HENMT: COMMON NORMALS: normocephalic HEAD & SCALP: normocephalic Eye: COMMON NORMALS: Equal, round and reactive pupils present and conjunctivae normal CONJUNCTIVA: Yes conjunctivae normal PUPIL: Yes Equal, round and reactive pupils present Neck/C-Spine: COMMON NORMALS: full ROM Resp: COMMON NORMALS: normal respiratory effort EFFORT & INSPECTION: Yes able to speak in complete sentences Back/Pelvis: COMMON NORMALS: thoraco-lumbar ROM normal Extremity: COMMON NORMALS: full ROM Neuro: COMMON NORMALS: patient oriented x3, moves all extremities and no focal motor deficits Psych: COMMON NORMALS: mental status grossly normal Skin: COMMON NORMALS: no rashes or lesions noted GENERAL SKIN EXAM: no rashes or lesions noted Course Vital Signs: Vital signs: Vital Signs Temperature 97.7 F 12/19/22 14:00 Pulse Rate 72 12/19/22 14:00 Respiratory Rate 14 12/19/22 14:00 Blood Pressure 119/65 12/19/22 14:00 Pulse Oximetry 96 12/19/22 14:00 Oxygen Delivery Me thod Room Air 12/19/22 14:00 MDM - Recheck/Abnormal Lab/Rx Medical Decision Making Patient was initially here for her fourth and final post exposure rabies prophylaxis however she is early. She started the series 12 days ago and also was day late on her third vaccination. We recommended to her that she should wait till the 14th day after initiation to give the best possible results. Particularly in light of the [facility] truncation of 5-4 we went to make sure that she gets the most benefit of her post rabies prophylaxis. Discharge Plan Discharge Patient Disposition: Home Clinical Impression: Bite by animal, Rabies contact Condition: Stable Prescriptions: No Action gabapentin 300 mg capsule 1,200 mg PO TID buprenorphine HCl 8 mg tablet, sublingual 16 mg SUBLINGUAL DAILY fluconazole [Diflucan] 150 mg tablet 150 mg PO DAILY Qty: 6 0RF Rx Instructions: for 3 days, then repeat 1 week later Ventolin HFA 90 mcg/actuation HFA aerosol inhaler 1 - 2 inh inhalation Q6H PRN (Reason: shortness of breath or wheezing) Qty: 6.7 0RF methocarbamol 750 mg tablet 750 mg PO TID dexamethasone sodium phosphate 4 mg/mL solution 8 mg IM ONCE Qty: 2 0RF amoxicillin-pot clavulanate 875-125 mg tablet 1 tab PO BID 7 Days Qty: 14 0RF triamcinolone acetonide 0.1 % cream 1 applic topical DAILY Qty: 30 0RF prednisone 20 mg tablet 20 mg PO BID 5 Days Qty: 10 0RF triamcinolone acetonide 0.5 % cream 1 applic topical BID Qty: 15 0RF naproxen 500 mg tablet 500 mg PO BID PRN (Reason: pain) Qty: 20 0RF Voltaren Arthritis Pain 1 % gel 4 g topical QID Qty: 100 0RF Rx Instructions: apply to single knee, ankle, foot; for foot includes sole/toes/top of foot hydroxyzine HCl 25 mg tablet 25 mg PO Q4H PRN (Reason: itching) Qty: 60 0RF Celebrex 100 mg capsule 100 mg PO BID PRN (Reason: pain) Qty: 20 0RF cyclobenzaprine 10 mg tablet 10 mg PO BID PRN (Reason: muscle spasm) Qty: 20 0RF Augmentin 500-125 mg tablet 1 tab PO BID Qty: 14 0RF Discharge Orders: Discharge ED (Routine); Ordered 12/19/22 Ordered By: [place] Discharge Diet: Usual diet Discharge Activity: Increase activity as tolerated Patient Instructions: Opioid Safety, Pain Management Activity Restrictions/Additional Instructions: Return in 48 hours for your fourth postexposure rabies vaccine Coding Level of Care Code ED Plug Overwrap Machine Tender for Julianna Irene
--- NOTE | 2022-12-22 14:10 | DCPLANNER ---
manager salt called patient due to no primary care physician - patient states that she sees Nubia Lux at [facility] in [place]
== END 2022-12-19 14:22 | disposition home or self-care (01) ==
PROVIDERS: Emergency Provider Emergency Medicine
DX: Z23 Encounter for immunization (principal); S01.85XD Open bite of other part of head, subsequent encounter; W54.0XXD Bitten by dog, subsequent encounter
CPT/HCPCS: 99281

== ENCOUNTER 2022-12-20 12:52 | Emergency (ER) | payer BC, MEDICAID, SELFPAY ==
[2022-12-20 12:59] VITALS: BP 111/57; PULSE 67; RESP 16; TEMP 36.5; O2SAT 95
--- NOTE | 2022-12-20 13:20 | W.ED.ANIMALB ---
HPI - Animal Bite General: Chief Complaint: Animal Bite Stated Complaint: last rabies shot Time Seen by Provider: 12/20/22 13:04 History of Present Illness: Patient is a 47-year-old female who comes to the ED to get her fourth and final rabies shot. A dog bite on face back on December 06 and was started on rabies prophylaxis series. She states that her dog bite on face is healing very well and she has not had any problems with that. Denies any complications from the previous rabies shots. Denies any fevers. Associated symptoms: Deny chills, fever(s) or headache(s) Review of Systems Const: Denies: fever(s), chills or fatigue Eyes: Denies: change in vision or eye discomfort ENMT: Denies: throat pain, odynophagia, nasal discharge or nasal congestion Card: Denies: chest pain, palpitations, edema, swelling of feet/ankles, dyspnea on exertion or orthopnea Resp: Denies: dyspnea, productive cough or non-productive cough GI: Denies: abdominal pain, nausea, vomiting, diarrhea, constipation or hematochezia : Denies: flank pain, dysuria or hematuria Musc: Denies: neck pain, back pain or extremity swelling Skin/Breast: Denies: rash or new lesions Neuro: Denies: headache(s), numbness in extremities or weakness in extremities PFSH ED PFSH: Medical History Allergic contact dermatitis Encounter for long-term (current) use of NSAIDs Encounter for long-term opiate analgesic use Intervertebral disc disorder with radiculopathy of lumbosacral region jail (current) use of opiate analgesic Low back pain 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Surgical History History of eye prosthesis Family History Mother Diabetes Father Heart disease Arthritis Social History Smoking and tobacco status: former smoker Alcohol intake: never Substance/Drug Use: never Lives independently: Yes Household members: family and children Housing: House Marital status: Single Current occupational status: unemployed Physical Exam Const: COMMON NORMALS: patient oriented x3 HENMT: COMMON NORMALS: normocephalic HEAD & SCALP: normocephalic MOUTH: Normal oral and palatal mucosa present THROAT: posterior oropharynx normal and uvula midline Neck/C-Spine: COMMON NORMALS: supple GENERAL: Yes normal visual inspection Resp: COMMON NORMALS: normal respiratory effort, No retractions, No use of accessory muscles and clear to auscultation bilaterally AUSCULTATION: clear to auscultation bilaterally Cardio: COMMON NORMALS: regular rate, regular rhythm, S1 normal heart sound present, S2 normal heart sound present, No gallops present (Cardio), No clicks present (Cardio), No murmurs present (Cardio) and Peripheral pulses 2+ throughout RATE: regular rate RHYTHM: regular rhythm HEART SOUNDS: S1 normal heart sound present and S2 normal heart sound present PERIPHERAL PULSES: Peripheral pulses 2+ throughout GI: COMMON NORMALS: Normal to inspection, nondistended, normoactive bowel sounds present, Soft to palpation, non-tender and no masses PALPATION: Yes Soft to palpation : COMMON NORMALS: Yes no CVA tenderness BLADDER/KIDNEY EXAM: Yes no CVA tenderness Back/Pelvis: COMMON NORMALS: no CVA tenderness Extremity: COMMON NORMALS: normal to inspection Neuro: COMMON NORMALS: patient oriented x3 GAIT: Yes Normal gait present Skin: GENERAL SKIN EXAM: dry skin Course Vital Signs: Vital signs: Vital Signs Temperature 97.7 F 12/20/22 12:59 Pulse Rate 67 12/20/22 12:59 Respiratory Rate 16 12/20/22 12:59 Blood Pressure 111/57 12/20/22 12:59 Pulse Oximetry 95 12/20/22 12:59 Oxygen Delivery Me thod Room Air 12/20/22 12:59 MDM - Animal Bite Medical Decision Making Patient is a 47-year-old female who comes to the ED to get her fourth and final rabies shot. A dog bite on face back on December 06 and was started on rabies prophylaxis series. She states that her dog bite on face is healing very well and she has not had any problems with that. Denies any complications from the previous rabies shots. Denies any fevers. Vitals are stable. Patient appears in no acute distress or pain. She was given her fourth and final rabies vaccination shot and was discharged home. Diagnosed with encounter for repeat administration of rabies vaccination. She was stable for discharge home. Follow-up with PCP in the next week for reevaluation. Return to ED precautions given. Patient understood and agreed with plan. Discharge Plan Discharge Patient Disposition: Home Clinical Impression: Encounter for repeat administration of rabies vaccination Condition: Stable Prescriptions: No Action gabapentin 300 mg capsule 1,200 mg PO TID buprenorphine HCl 8 mg tablet, sublingual 16 mg SUBLINGUAL DAILY fluconazole [Diflucan] 150 mg tablet 150 mg PO DAILY Qty: 6 0RF Rx Instructions: for 3 days, then repeat 1 week later Ventolin HFA 90 mcg/actuation HFA aerosol inhaler 1 - 2 inh inhalation Q6H PRN (Reason: shortness of breath or wheezing) Qty: 6.7 0RF methocarbamol 750 mg tablet 750 mg PO TID dexamethasone sodium phosphate 4 mg/mL solution 8 mg IM ONCE Qty: 2 0RF amoxicillin-pot clavulanate 875-125 mg tablet 1 tab PO BID 7 Days Qty: 14 0RF triamcinolone acetonide 0.1 % cream 1 applic topical DAILY Qty: 30 0RF prednisone 20 mg tablet 20 mg PO BID 5 Days Qty: 10 0RF triamcinolone acetonide 0.5 % cream 1 applic topical BID Qty: 15 0RF naproxen 500 mg tablet 500 mg PO BID PRN (Reason: pain) Qty: 20 0RF Voltaren Arthritis Pain 1 % gel 4 g topical QID Qty: 100 0RF Rx Instructions: apply to single knee, ankle, foot; for foot includes sole/toes/top of foot hydroxyzine HCl 25 mg tablet 25 mg PO Q4H PRN (Reason: itching) Qty: 60 0RF Celebrex 100 mg capsule 100 mg PO BID PRN (Reason: pain) Qty: 20 0RF cyclobenzaprine 10 mg tablet 10 mg PO BID PRN (Reason: muscle spasm) Qty: 20 0RF Augmentin 500-125 mg tablet 1 tab PO BID Qty: 14 0RF Discharge Orders: Discharge ED (Routine); Ordered 12/20/22 Ordered By: Yoan Cleary Discharge Diet: Regular Discharge Activity: Increase activity as tolerated Activity Restrictions/Additional Instructions: Follow-up with medical provider as directed. Continue taking all home medications as previously prescribed. Return to the ER or your medical provider if condition worsens. Please read and understand discharge instructions. Thank you for choosing [facility] for your healthcare needs today. Please realize this is an emergency room and that we are providing you with a medical screening exam and this may not be complete and all inclusive of all the testing and or work up that you may need to determine your ailment or severity of your illness. It is very important that you follow up as instructed or that you return to the Emergency Department should you have concerns or if your condition changes or worsens in any way. Coding Level of Care Code ED Knotting Machine Operator Portable for Julianna Irene
[2022-12-20] MEDS: rabies vaccine 2.5 unit SDV IM (13:22)
--- NOTE | 2022-12-24 12:05 | DCPLANNER ---
manager games called patient due to no primary care physician - patient states that she sees Nubia Lux at [facility] in [place]
== END 2022-12-20 13:36 | disposition home or self-care (01) ==
PROVIDERS: Emergency Provider Physician Assistant
DX: Z29.14 Encounter for prophylactic rabies immune globulin (principal); Z20.3 Contact with and (suspected) exposure to rabies; Z23 Encounter for immunization; W54.0XXA Bitten by dog, initial encounter; Z87.891 Personal history of nicotine dependence
CPT/HCPCS: 90471; 90675; 99283

== ENCOUNTER 2022-12-23 08:50 | Emergency (ER) | payer BC, MEDICAID, SELFPAY ==
[2022-12-23 08:53] VITALS: BP 123/70; PULSE 77; RESP 17; TEMP 36.8; O2SAT 96; BMI 29.2
[2022-12-23 08:57] VITALS: BP 120/75; PULSE 63; O2SAT 93
--- NOTE | 2022-12-23 09:04 | ED_ITS ---
HPI - URI/Sore Throat General: Chief Complaint: Upper Respiratory Infection Stated Complaint: sore throat, feels like her glands are swollen Time Seen by Provider: 12/23/22 08:51 History of Present Illness: Patient is a 47-year-old female who comes to the ED with sore throat. Symptoms started approximately 3 days ago. Endorses having some nasal drainage and congestion as well. She endorses feeling a little generalized body aches and sick feeling started this morning. She endorses having some white spots on the back of her throat. Denies any fevers, chills, trouble breathing, nausea/vomiting, bladder or bowel symptoms. Associated symptoms: Reports nasal congestion; Deny abdominal pain, chills, chest pain, diarrhea, fever(s), headache(s), nausea or vomiting Review of Systems Const: Denies: fever(s), chills or fatigue Eyes: Denies: change in vision or eye discomfort ENMT: Reports: throat pain, nasal discharge and nasal congestion; Denies: odynophagia Card: Denies: chest pain, palpitations, edema, swelling of feet/ankles, dyspnea on exertion or orthopnea Resp: Denies: dyspnea, productive cough or non-productive cough GI: Denies: abdominal pain, nausea, vomiting, diarrhea, constipation or hematochezia : Denies: flank pain, dysuria or hematuria Musc: Denies: neck pain, back pain or extremity swelling Skin/Breast: Denies: rash or new lesions Neuro: Denies: headache(s), numbness in extremities or weakness in extremities [facility] ED PFSH: Medical History Allergic contact dermatitis Encounter for long-term (current) use of NSAIDs Encounter for long-term opiate analgesic use Intervertebral disc disorder with radiculopathy of lumbosacral region 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 Low back pain 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Surgical History History of eye prosthesis Family History Mother Diabetes Father Heart disease Arthritis Social History Smoking and tobacco status: former smoker Alcohol intake: never Substance/Drug Use: never Lives independently: Yes Household members: family and children Housing: House Marital status: Single Current occupational status: unemployed Physical Exam Const: COMMON NORMALS: no acute distress, patient oriented x3, healthy appearing and alert HENMT: COMMON NORMALS: normocephalic HEAD & SCALP: normocephalic MOUTH: Normal oral and palatal mucosa present THROAT: uvula midline and posterior oropharynx abnormal erythema and exudates Neck/C-Spine: COMMON NORMALS: supple GENERAL: Yes normal visual inspection Resp: COMMON NORMALS: normal respiratory effort, No retractions, No use of accessory muscles and clear to auscultation bilaterally AUSCULTATION: clear to auscultation bilaterally Cardio: COMMON NORMALS: regular rate, regular rhythm, S1 normal heart sound present, S2 normal heart sound present, No gallops present (Cardio), No clicks present (Cardio), No murmurs present (Cardio) and Peripheral pulses 2+ throug hout RATE: regular rate RHYTHM: regular rhythm HEART SOUNDS: S1 normal heart sound present and S2 normal heart sound present PERIPHERAL PULSES: Peripheral pulses 2+ throughout GI: COMMON NORMALS: Normal to inspection, nondistended, normoactive bowel sounds present, Soft to palpation, non-tender and no masses PALPATION: Yes Soft to palpation : COMMON NORMALS: Yes no CVA tenderness BLADDER/KIDNEY EXAM: Yes no CVA tenderness Back/Pelvis: COMMON NORMALS: no CVA tenderness Extremity: COMMON NORMALS: normal to inspection Neuro: COMMON NORMALS: patient oriented x3 SENSORIUM/ORIENTATION: Yes alert GAIT: Yes Normal gait present Skin: GENERAL SKIN EXAM: dry skin Course Vital Signs: Vital signs: Vital Signs Temperature 98.2 F 12/23/22 08:53 Pulse Rate 72 12/23/22 10:13 Respiratory Rate 14 12/23/22 10:13 Blood Pressure 111/70 12/23/22 10:13 Pulse Oximetry 97 12/23/22 10:13 Oxygen Delivery Me thod Room Air 12/23/22 08:53 MDM - URI/Sore Throat Medical Decision Making Patient is a 47-year-old female who comes to the ED with sore throat. Symptoms started approximately 3 days ago. Endorses having some nasal drainage and congestion as well. She endorses feeling a little generalized body aches and sick feeling started this morning. She endorses having some white spots on the back of her throat. Denies any fevers, chills, trouble breathing, nausea/vomiting, bladder or bowel symptoms. Vitals are stable. Patient has posterior oropharynx erythema and exudates present. Strep was negative. Given patient's exam findings she was diagnosed with pharyngitis and she was sent home with a prescription for an antibiotic and steroid Dosepak. Told to follow-up with her PCP within the next week for reevaluation. Return to ED precautions given. Patient understood and agreed with plan. Lab Data I reviewed the patient's lab results. Laboratory Results Group A Strep Rapid Negative (Negative) 12/23/22 09:05 Discharge Plan Discharge Patient Disposition: Home Clinical Impression: Pharyngitis Qualifiers: Pharyngitis/tonsillitis etiology: unspecified etiology Qualified Code(s): J02.9 - Acute pharyngitis, unspecified Condition: Stable Prescriptions: New clindamycin HCl 150 mg capsule 300 mg PO QID 7 Days Qty: 56 0RF Medrol (Bg) 4 mg tablets,dose pack See Rx Instructions .ROUTE .COMPLEX Qty: 21 0RF Rx Instructions: orally per package directions No Action gabapentin 300 mg capsule 1,200 mg PO TID buprenorphine HCl 8 mg tablet, sublingual 16 mg SUBLINGUAL DAILY fluconazole [Diflucan] 150 mg tablet 150 mg PO DAILY Qty: 6 0RF Rx Instructions: for 3 days, then repeat 1 week later Ventolin HFA 90 mcg/actuation HFA aerosol inhaler 1 - 2 inh inhalation Q6H PRN (Reason: shortness of breath or wheezing) Qty: 6.7 0RF methocarbamol 750 mg tablet 750 mg PO TID dexamethasone sodium phosphate 4 mg/mL solution 8 mg IM ONCE Qty: 2 0RF amoxicillin-pot clavulanate 875-125 mg tablet 1 tab PO BID 7 Days Qty: 14 0RF triamcinolone acetonide 0.1 % cream 1 applic topical DAILY Qty: 30 0RF prednisone 20 mg tablet 20 mg PO BID 5 Days Qty: 10 0RF triamcinolone acetonide 0.5 % cream 1 applic topical BID Qty: 15 0RF naproxen 500 mg tablet 500 mg PO BID PRN (Reason: pain) Qty: 20 0RF Voltaren Arthritis Pain 1 % gel 4 g topical QID Qty: 100 0RF Rx Instructions: apply to single knee, ankle, foot; for foot includes sole/toes/top of foot hydroxyzine HCl 25 mg tablet 25 mg PO Q4H PRN (Reason: itching) Qty: 60 0RF Celebrex 100 mg capsule 100 mg PO BID PRN (Reason: pain) Qty: 20 0RF cyclobenzaprine 10 mg tablet 10 mg PO BID PRN (Reason: muscle spasm) Qty: 20 0RF Augmentin 500-125 mg tablet 1 tab PO BID Qty: 14 0RF Discharge Orders: Discharge ED (Routine); Ordered 12/23/22 Ordered By: Yoan Cleary Discharge Diet: Regular Discharge Activity: Increase activity as tolerated Patient Instructions: Pharyngitis (ED) Activity Restrictions/Additional Instructions: Follow-up with medical provider as directed. Take medications as prescribed. Return to the ER or your medical provider if condition worsens. Please read and understand discharge instructions. Thank you for choosing [facility] for your healthcare needs today. Please realize this is an emergency room and that we are providing you with a medical screening exam and this may not be complete and all inclusive of all the testing and or work up that you may need to determine your ailment or severity of your illness. It is very important that you follow up as instructed or that you return to the Emergency Department should you have concerns or if your condition changes or worsens in any way. Coding Level of Care Code ED Bond Underwriter for Julianna Irene
[2022-12-23 09:54] LABS: Rapid Strep A Test Negative (Negative)
[2022-12-23 10:13] VITALS: BP 111/70; PULSE 72; RESP 14; O2SAT 97
--- NOTE | 2022-12-24 12:53 | DCPLANNER ---
framing manager called patient due to no primary care physician - patient states that she sees Nubia Lux at [facility] in [place]
== END 2022-12-23 10:13 | disposition home or self-care (01) ==
PROVIDERS: Emergency Provider Physician Assistant
DX: J02.9 Acute pharyngitis, unspecified (principal); Z87.891 Personal history of nicotine dependence
CPT/HCPCS: 87081; 87880; 99283

== ENCOUNTER → 2023-01-13 19:18 | Outpatient (BNVA) | payer BC, MEDICAID, SELFPAY | PROVIDERS: Visit Provider Emergency Medicine | DX: J02.9 Acute pharyngitis, unspecified (principal) | CPT/HCPCS: 87071; 87880 ==

== ENCOUNTER → 2023-02-11 19:27 | Outpatient (BNVA) | payer BC, MEDICAID, SELFPAY | PROVIDERS: Visit Provider Emergency Medicine | DX: J02.9 Acute pharyngitis, unspecified (principal); K52.9 Noninfective gastroenteritis and colitis, unspecified | CPT/HCPCS: 87880 ==

== ENCOUNTER → 2023-02-12 13:35 | Outpatient (BNVA) | payer BC, MEDICAID, SELFPAY | PROVIDERS: Visit Provider Emergency Medicine | DX: J02.9 Acute pharyngitis, unspecified (principal); K52.9 Noninfective gastroenteritis and colitis, unspecified; J02.0 Streptococcal pharyngitis | CPT/HCPCS: 87177; 87209 ==

== ENCOUNTER → 2023-02-28 17:54 | Outpatient (BNVA) | payer BC, MEDICAID, SELFPAY | PROVIDERS: Visit Provider Emergency Medicine | DX: J02.0 Streptococcal pharyngitis; Z91.09 Other allergy status, other than to drugs and biological substances | CPT/HCPCS: 87880 ==

== ENCOUNTER 2023-03-12 16:01 | Emergency (ER) | payer BC, MEDICAID, SELFPAY ==
--- NOTE | 2023-03-12 16:10 | XRR_ITS ---
PROCEDURE INFORMATION: Exam: XR Chest Exam date and time: 03/12/2023 7:39 PM Age: 47 years old Clinical indication: Cough and dyspnea; Additional info: Dyspnea/cough TECHNIQUE: Imaging protocol: Radiologic exam of the chest. Views: 1 view. COMPARISON: CR XR chest 2V* [id number] 04/30/2022 4:33 AM FINDINGS: Lungs: Trace bibasilar atelectasis likely. No consolidation. Pleural spaces: Unremarkable. No pleural effusion. No pneumothorax. Heart/Mediastinum: Unremarkable. No cardiomegaly. Bones/joints: Unremarkable. XR/XR chest 1V portable [id number] IMPRESSION: No acute findings.
[2023-03-12 16:32] VITALS: BP 107/59; PULSE 77; RESP 18; TEMP 36.6; O2SAT 100; BMI 27.4
--- NOTE | 2023-03-12 16:40 | ECG_ITS ---
[facility] Test Date: 2023-03-12 Pat Name: Sissy Samuels Department: Room: Gender: Female Information Technology Architect: : 1975 Requested By: Duong Sarah Order Number: [id number] Ramsey MD: Nicholas Tarango M.D. Measurements Intervals [place] Rate: 72 P: 8 WV: 155 QRS: 12 QRSD: 88 T: 20 QT: 378 QTc: 415 Interpretive Statements SINUS RHYTHM No previous ECG available for comparison Electronically Signed On 03-13-2023 9:29:07 CDT by Nicholas Tarango M.D. [id number]
[2023-03-12 16:45] LABS: Eosinophils # 0.1 10^3/uL (0.0-0.8); Eosinophils % 2.8 %; Hematocrit 40.2 % (36-47); Lymphocytes # 1.6 10^3/uL (0.8-4.8); Lymphocytes % 41.2 %; Mean Corpuscular HGB Conc 35.3 g/dL (30-55); Mean Corpuscular Volume 96.2 fl (85-98); Mean Platelet Volume 10.8 fL (7.4-10.4); Monocytes # 0.3 10^3/uL (0.2-0.9); Monocytes % 8.8 %; Neutrophils # 1.78 10^3/uL (1.8-7.7); Neutrophils % 45.9 %; Nucleated Red Blood Cells % 0 %; Platelet Count 150 10^3/cmm (157-399); Red Blood Count 4.18 10^6/uL (3.85-5.65); Red Cell Distribution Width 11.9 % (12.1-15.1); White Blood Count 3.88 10^3/uL (3.29-11.43)
[2023-03-12 17:12] LABS: Alanine Aminotransferase 15 U/L (0-33); Albumin Level 3.7 g/dL (3.5-5.2); Alkaline Phosphatase 74 U/L (35-105); Anion Gap 11.7 (5-19); Aspartate Amino Transferase 18 U/L (0-32); Blood Urea Nitrogen 14 mg/dL (6-20); Calcium 8.6 mg/dL (8.5-10.5); Carbon Dioxide 24 mmol/L (22-29); Chloride 104 mmol/L (98-107); Globulin 2.6 g/dL (1.3-4.6); Glomerular Filtration Rate 77.6 mL/min (90-130); Glucose 140 mg/dL (65-115); Osmolality Calculated 285 mOsm/kg (285-295); Potassium 3.7 mmol/L (3.5-5.1); Sodium 136 mmol/L (136-145); Total Bilirubin 0.2 mg/dL (0.15-1.2); Total Protein 6.3 g/dL (6.6-8.7)
--- NOTE | 2023-03-12 19:38 | ED_ITS ---
HPI - Allergic Reaction General: Chief complaint: Allergic Reaction Stated complaint: sob, rash, mixed up meds together Time Seen by Provider: 03/12/23 16:09 Source: patient Mode of arrival: ambulatory Limitations: no limitations History of Present Illness: HPI narrative: 47-year-old female states that she had taken hydroxyzine and feels like she had an allergic reaction to it states she felt her throat was swelling having some slight shortness of breath. She states that her symptoms have since improved. She denies any chest pain denies any severe rash denies any headache denies any vomiting Associated symptoms: Deny abdominal pain, nausea or vomiting Review of Systems Const: Denies: fever(s) or chills Eyes: Denies: blurry vision or eye discomfort ENMT: Reports: throat pain; Denies: dental pain Card: Denies: chest pain Resp: Denies: dyspnea GI: Denies: abdominal pain, nausea, vomiting or diarrhea : Denies: dysuria Musc: Denies: neck pain or back pain Skin/Breast: Denies: rash Neuro: Denies: headache(s) All/Imm: Denies: urticaria PFSH ED PFSH: Medical History Allergic contact dermatitis Encounter for long-term (current) use of NSAIDs Encounter for long-term opiate analgesic use Intervertebral disc disorder with radiculopathy of lumbosacral region intermediate school teacher (current) use of opiate analgesic Low back pain 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Surgical History History of eye prosthesis Family History Mother Diabetes Father Heart disease Arthritis Social History Smoking and tobacco status: former smoker Alcohol intake: never Substance/Drug Use: never Lives independently: Yes Household members: family and children Housing: House Marital status: Single Current occupational status: unemployed Physical Exam Const: COMMON NORMALS: no acute distress, patient oriented x3 and healthy appearing HENMT: COMMON NORMALS: normocephalic and atraumatic HEAD & SCALP: normocephalic and atraumatic THROAT: posterior oropharynx normal Eye: COMMON NORMALS: conjunctivae normal CONJUNCTIVA: Yes conjunctivae normal Neck/C-Spine: COMMON NORMALS: full ROM and supple Chest: COMMONS NORMALS: normal inspection of the chest Resp: COMMON NORMALS: normal respiratory effort, No retractions, No use of accessory muscles and clear to auscultation bilaterally AUSCULTATION: clear to auscultation bilaterally Cardio: COMMON NORMALS: regular rate, regular rhythm and No murmurs present (Cardio) RATE: regular rate RHYTHM: regular rhythm GI: INSPECTION: Yes normal to inspection Extremity: COMMON NORMALS: normal to inspection and full ROM Neuro: COMMON NORMALS: patient oriented x3, moves all extremities and no focal motor deficits Psych: COMMON NORMALS: mental status grossly normal, Normal thought process pr esent and cooperative THOUGHT PROCESS: Normal thought process present Skin: COMMON NORMALS: no rashes or lesions noted and no wounds GENERAL SKIN EXAM: no rashes or lesions noted Course Vital Signs: Vital signs: Vital Signs Temperature 97.9 F 03/12/23 16:32 Pulse Rate 77 03/12/23 16:32 Respiratory Rate 18 03/12/23 16:32 Blood Pressure 107/59 03/12/23 16:32 Pulse Oximetry 100 03/12/23 16:32 Oxygen Delivery Me thod Room Air 03/12/23 16:32 MDM - Allergic Reaction Medical Decision Making Patient presents here with allergic reaction reaction she is much improved here x-ray EKG blood works all normal she is stable for discharge Lab Data 03/12/23 16:24 03/12/23 16:24 Laboratory Results WBC 3.88 10^3/uL (3.29-11.43) 03/12/23 16:24 RBC 4.18 10^6/uL (3.85-5.65) 03/12/23 16:24 Hgb 14.20 g/dL (11.27-16.99) 03/12/23 16:24 Hct 40.2 % (36-47) 03/12/23 16:24 MCV 96.2 fl (85-98) 03/12/23 16:24 MCH 34.0 pg (27-33) H 03/12/23 16:24 MCHC 35.3 g/dL (30-55) 03/12/23 16:24 RDW 11.9 % (12.1-15.1) L 03/12/23 16:24 Plt Count 150 10^3/cmm (157-399) L 03/12/23 16:24 MPV 10.8 fL (7.4-10.4) H 03/12/23 16:24 Neut % (Auto) 45.9 % 03/12/23 16:24 Lymph % (Auto) 41.2 % 03/12/23 16:24 [place] % (Auto) 8.8 % 03/12/23 16:24 Eos % (Auto) 2.8 % 03/12/23 16:24 Baso % (Auto) 1.0 % 03/12/23 16:24 Neut # (Auto) 1.78 10^3/uL (1.8-7.7) L 03/12/23 16:24 Lymph # (Auto) 1.6 10^3/uL (0.8-4.8) 03/12/23 16:24 [place] # (Auto) 0.3 10^3/uL (0.2-0.9) 03/12/23 16:24 Eos # (Auto) 0.1 10^3/uL (0.0-0.8) 03/12/23 16:24 Baso # (Auto) 0.0 10^3/uL (0.0-0.1) 03/12/23 16:24 Nucleated RBC % (auto) 0 % 03/12/23 16:24 Nucleated RBCs # 0.0 /100WBC 03/12/23 16:24 Sodium 136 mmol/L (136-145) 03/12/23 16:24 Potassium 3.7 mmol/L (3.5-5.1) 03/12/23 16:24 Chloride 104 mmol/L (98-107) 03/12/23 16:24 Carbon Dioxide 24 mmol/L (22-29) 03/12/23 16:24 Anion Gap 11.7 (5-19) 03/12/23 16:24 BUN 14 mg/dL (6-20) 03/12/23 16:24 Creatinine 0.8 mg/dL (0.5-0.9) 03/12/23 16:24 GFR Calculation 77.6 mL/min (90-130) L 03/12/23 16:24 Glucose 140 mg/dL (65-115) H 03/12/23 16:24 Calculated Osmolality 285 mOsm/kg (285-295) 03/12/23 16:24 Calcium 8.6 mg/dL (8.5-10.5) 03/12/23 16:24 Total Bilirubin 0.2 mg/dL (0.15-1.2) 03/12/23 16:24 AST 18 U/L (0-32) 03/12/23 16:24 ALT 15 U/L (0-33) 03/12/23 16:24 Alkaline Phosphatase 74 U/L (35-105) 03/12/23 16:24 Total Protein 6.3 g/dL (6.6-8.7) L 03/12/23 16:24 Albumin 3.7 g/dL (3.5-5.2) 03/12/23 16:24 Globulin 2.6 g/dL (1.3-4.6) 03/12/23 16:24 Discharge Plan Discharge Patient Disposition: Home Clinical Impression: Allergic reaction Condition: Stable Prescriptions: No Action gabapentin 300 mg capsule 1,200 mg PO TID buprenorphine HCl 8 mg tablet, sublingual 16 mg SUBLINGUAL DAILY Ventolin HFA 90 mcg/actuation HFA aerosol inhaler 1 - 2 inh inhalation Q6H PRN (Reason: shortness of breath or wheezing) Qty: 6.7 0RF methocarbamol 750 mg tablet 750 mg PO TID dexamethasone sodium phosphate 4 mg/mL solution 8 mg IM ONCE Qty: 2 0RF mupirocin 2 % ointment 1 applic topical BID 7 Days Qty: 15 0RF ondansetron 8 mg tablet,disintegrating 8 mg PO Q8H PRN (Reason: nausea and vomiting) Qty: 10 0RF azithromycin [Zithromax] 500 mg tablet 500 mg PO DAILY 5 Days Qty: 5 0RF triamcinolone acetonide 0.5 % cream 1 applic topical BID Qty: 15 0RF naproxen 500 mg tablet 500 mg PO BID PRN (Reason: pain) Qty: 20 0RF Voltaren Arthritis Pain 1 % gel 4 g topical QID Qty: 100 0RF Rx Instructions: apply to single knee, ankle, foot; for foot includes sole/toes/top of foot hydroxyzine HCl 25 mg tablet 25 mg PO Q4H PRN (Reason: itching) Qty: 60 0RF Celebrex 100 mg capsule 100 mg PO BID PRN (Reason: pain) Qty: 20 0RF cyclobenzaprine 10 mg tablet 10 mg PO BID PRN (Reason: muscle spasm) Qty: 20 0RF Discharge Orders: Discharge ED (Routine); Ordered 03/12/23 Ordered By: Zachariah Sanabria Discharge Diet: Advance as tolerated Discharge Activity: Resume usual activity Patient Instructions: General Allergic Reaction (ED) Coding Level of Care Code ED Heel Nail Rasper for Julianna Irene
[2023-03-12] MEDS: dexamethasone 10 mg/mL INJ IM (19:55)
[2023-03-12 20:00] VITALS: BP 131/65; PULSE 73; RESP 18; O2SAT 99
[2023-03-12 20:25] VITALS: BP 131/65; PULSE 71; RESP 18; O2SAT 95
== END 2023-03-12 20:26 | disposition home or self-care (01) ==
PROVIDERS: Family Medicine; Emergency Provider Emergency Medicine
DX: T78.40XA Allergy, unspecified, initial encounter (principal); Z87.891 Personal history of nicotine dependence
CPT/HCPCS: 36415; 71045; 80053; 85025; 93005; 96372; 99285; J1100

== ENCOUNTER → 2023-03-15 11:34 | Outpatient (BNVA) | payer BC, MEDICAID, SELFPAY | PROVIDERS: Visit Provider Registered Nurse Neonatal Intensive Care | DX: J02.9 Acute pharyngitis, unspecified (principal); B37.0 Candidal stomatitis; B37.31 Acute candidiasis of vulva and vagina | CPT/HCPCS: 87880 ==

== ENCOUNTER 2023-03-19 06:03 | Emergency (ER) | payer BC, MEDICAID, SELFPAY ==
[2023-03-19 06:18] VITALS: BP 105/70; PULSE 88; RESP 20; TEMP 36.8; O2SAT 96; BMI 26.9
--- NOTE | 2023-03-19 06:47 | W.ED.URI ---
HPI - URI/Sore Throat General: Chief Complaint: Upper Respiratory Infection Stated Complaint: throat pain Time Seen by Provider: 03/19/23 06:06 Source: patient Mode of arrival: ambulatory History of Present Illness: 47-year-old female was seen in the urgent care clinic on 03 15 for all candidiasis started on Diflucan and nystatin mouthwashes. She feels it is not getting better soon enough. She also says she has a pus pocket on her throat on the left. When she was seen on 03 15 she was swabbed for strep as well which was negative. No fevers sweats or chills. She has had symptoms now of sore throat for approximately 7 to 8 days according to the note from the urgent care. MD elicited complaint: sore throat Onset (ago): week(s) Able to tolerate fluids by mouth: Yes Exacerbating factors: swallowing Associated symptoms: Reports sore throat; Deny abdominal pain, change in voice, chills, chest pain, congestion, cough, epistaxis, ear or mastoid pain, fever(s), headache(s), myalgias, nasal congestion, rash, rhinorrhea, short of breath, sinus pain or stiffness Treatments prior to arrival: other (Nystatin and Diflucan) Review of Systems Const: Denies: fever(s) or chills ENMT: Reports: throat pain; Denies: ear or mastoid pain, nasal congestion, epistaxis or sinus pain Card: Denies: chest pain Resp: Denies: dyspnea GI: Denies: abdominal pain Neuro: Denies: headache(s) [facility] ED PFSH: Medical History Allergic contact dermatitis Encounter for long-term (current) use of NSAIDs Encounter for long-term opiate analgesic use Intervertebral disc disorder with radiculopathy of lumbosacral region long-term (current) use of opiate analgesic Low back pain 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Surgical History History of eye prosthesis Family History Mother Diabetes Father Heart disease Arthritis Social History Smoking and tobacco status: former smoker Alcohol intake: never Substance/Drug Use: never Lives independently: Yes Household members: family and children Housing: House Marital status: Single Current occupational status: unemployed Physical Exam Const: COMMON NORMALS: no acute distress GENERAL APPEARANCE: cooperative and comfortable ORIENTATION/CONSCIOUSNESS: Yes awake, Yes oriented to person, Yes oriented to place and Yes oriented to time HENMT: COMMON NORMALS: normocephalic, atraumatic and hearing grossly normal bilaterally HEAD & SCALP: normocephalic and atraumatic OTHER: Evidence of resolving thrush with some patches on the tongue a few small areas on the buccal mucosa. No exudates in the posterior pharynx some mild redness along the left tonsillar pillar no abscess at this time. Resp: COMMON NORMALS: normal respiratory effort, No retractions, No use of accessory muscles and clear to auscultation bilaterally AUSCULTATION: clear to auscultation bilaterally Cardio: COMMON NORMALS: regular rate, regular rhythm and No murmurs present (Cardio) RATE: regular rate RHYTHM: regular rhythm Neuro: SENSORIUM/ORIENTATION: Yes oriented to person, Yes oriented to place and Yes oriented to time Skin: COMMON NORMALS: no rashes or lesions noted GENERAL SKIN EXAM: no rashes or lesions noted Course Vital Signs: Vital signs: Vital Signs Temperature 98.2 F 03/19/23 06:18 Pulse Rate 88 03/19/23 06:18 Respiratory Rate 20 H 03/19/23 06:18 Blood Pressure 105/70 03/19/23 06:18 Pulse Oximetry 96 03/19/23 06:18 Oxygen Delivery Me thod Room Air 03/19/23 06:18 MDM - URI/Sore Throat Medical Decision Making Patient was seen earlier in the week and treated for thrush. She had a strep test last month that was positive. When patient was seen on 03 15 she said she had had sore throat for 3 to 4 days prior to that. Today she is stating she has had a sore sore throat for a month. Her rapid strep is negative her NYA did not show any Skylar. On based on her exam I believe she probably did have Skylar in the treatment has already started to resolve it which is why the NYA is negative. She is brownish colored plaques that look like resolving Skylar. Would not recommend steroid as that is likely to cause a recurrence of the thrush, would not recommend antibiotics for the same reason and I do not think will resolve her symptoms. I think this is just caused by the thrush that is resolving. However given her complaint of the length of time she has had symptoms recommend that she see ear nose and throat for further evaluation. I do not see anything that looks as if it is abscessed at this time there is not anything that appears to need emergent drainage. Patient is angry that we are not offering further treatment. Discussed with her why we are making the recommendations we are and encouraged her to follow-up with the ENT if she feels this has been going on for this long. She declines referral. Encouraged her to follow-up with her primary care if she reconsiders referral to ENT they can make an appropriate referral. Recommend warm salt water gargles for symptomatic treatment continue nystatin swish and spit 4 times daily Medical Records I reviewed the patient's medical records. Lab Data I reviewed the patient's lab results. Laboratory Results Group A Strep Rapid Negative (Negative) 03/19/23 07:10 Discharge Plan Discharge Patient Disposition: Home Clinical Impression: Skylar infection of mouth, Pharyngitis Condition: Stable Prescriptions: No Action gabapentin 300 mg capsule 1,200 mg PO TID buprenorphine HCl 8 mg tablet, sublingual 16 mg SUBLINGUAL DAILY Ventolin HFA 90 mcg/actuation HFA aerosol inhaler 1 - 2 inh inhalation Q6H PRN (Reason: shortness of breath or wheezing) Qty: 6.7 0RF methocarbamol 750 mg tablet 750 mg PO TID dexamethasone sodium phosphate 4 mg/mL solution 8 mg IM ONCE Qty: 2 0RF mupirocin 2 % ointment 1 applic topical BID 7 Days Qty: 15 0RF nystatin 100,000 unit/mL suspension 6 ml PO QID 7 Days Qty: 168 0RF Rx Instructions: swish and swallow ondansetron 8 mg tablet,disintegrating 8 mg PO Q8H PRN (Reason: nausea and vomiting) Qty: 10 0RF triamcinolone acetonide 0.5 % cream 1 applic topical BID Qty: 15 0RF fluconazole [Diflucan] 150 mg tablet 150 mg PO Q3D 1 Days Qty: 1 0RF naproxen 500 mg tablet 500 mg PO BID PRN (Reason: pain) Qty: 20 0RF Voltaren Arthritis Pain 1 % gel 4 g topical QID Qty: 100 0RF Rx Instructions: apply to single knee, ankle, foot; for foot includes sole/toes/top of foot hydroxyzine HCl 25 mg tablet 25 mg PO Q4H PRN (Reason: itching) Qty: 60 0RF Celebrex 100 mg capsule 100 mg PO BID PRN (Reason: pain) Qty: 20 0RF cyclobenzaprine 10 mg tablet 10 mg PO BID PRN (Reason: muscle spasm) Qty: 20 0RF Discharge Orders: Discharge ED (Routine); Ordered 03/19/23 Ordered By: Duong Kiser Referrals: NOT ON FILE,DOCTOR [Primary Care Provider] - Discharge Diet: Full LIquid Discharge Activity: Increase activity as tolerated Patient Instructions: Opioid Safety, Pain Management Activity Restrictions/Additional Instructions: Continue the previously prescribed medications (Diflucan and nystatin swish and spit). You can also use warm salt water gargles for relief of discomfort. You have declined our offer to refer you to ear nose and throat. If you reconsider follow-up with your primary care doctor and they can refer you to the stitching machine feeder or offbearer. Coding Level of Care Code ED Economic Development Coordinator for Julianna Irene
[2023-03-19 07:57] LABS: Rapid Strep A Test Negative (Negative)
== END 2023-03-19 08:26 | disposition home or self-care (01) ==
PROVIDERS: Emergency Provider Family Medicine
DX: J02.9 Acute pharyngitis, unspecified (principal); B37.0 Candidal stomatitis; Z87.891 Personal history of nicotine dependence
CPT/HCPCS: 87081; 87210; 87880; 99283

== ENCOUNTER → 2023-08-03 10:40 | Outpatient (BNVA) | payer BC, MEDICAID, SELFPAY | PROVIDERS: Visit Provider Nurse Practitioner Family | DX: J02.9 Acute pharyngitis, unspecified (principal); J06.9 Acute upper respiratory infection, unspecified | CPT/HCPCS: 87880 ==

== ENCOUNTER → 2023-09-16 16:57 | Outpatient (BNVA) | payer BC, MEDICAID, SELFPAY | PROVIDERS: Visit Provider Emergency Medicine | DX: J02.9 Acute pharyngitis, unspecified (principal) | CPT/HCPCS: 87071; 87880 ==

== ENCOUNTER 2023-11-07 09:07 | Outpatient (CLI) | payer BC, MEDICAID, SELFPAY ==
--- NOTE | 2023-11-07 09:10 | XR_ITS ---
WS: [id number] XR ankle LT min 3V* [id number] REASON FOR EXAM: pain FINDINGS: No fracture or focal bone lesion. Joint spaces in the left ankle are intact and well preserved. No subchondral bone abnormality. No soft tissue abnormality. IMPRESSION: No significant abnormality.
--- NOTE | 2023-11-07 09:10 | XR_ITS ---
WS: [id number] XR foot LT min 3V* [id number] REASON FOR EXAM: pain FINDINGS: No fracture or focal bone lesion. Joint spaces at the forefoot, hindfoot, and midfoot are intact. No soft tissue abnormality. IMPRESSION: No significant abnormality.
== END 2023-11-07 09:08 | disposition home or self-care (01) ==
PROVIDERS: Visit Provider Registered Nurse Neonatal Intensive Care
DX: R52 Pain, unspecified (principal)
CPT/HCPCS: 73610; 73630

== ENCOUNTER 2024-05-05 05:27 | Emergency (ER) | payer BC, MEDICAID, SELFPAY ==
[2024-05-05 05:34] VITALS: BP 101/72; PULSE 82; RESP 18; TEMP 36.1; O2SAT 98; BMI 24.0
--- NOTE | 2024-05-05 05:56 | ED_ITS ---
HPI - URI/Sore Throat General: Chief Complaint: Upper Respiratory Infection Stated Complaint: throat swollen, Left ear pain Time Seen by Provider: 05/05/24 05:44 History of Present Illness: 48-year-old female presents emergency ro om with complaints of left ear pain and sore throat. She states her throat feels swollen she downplays to the extent as it was is no difficulty with speaking or swallowing no fever sweats or chills no neck pain. No productive cough. She is also complaining about some patches on her back that become mildly reddened at times. No drainage from this lesion Associated symptoms: Deny abdominal pain, chills, chest pain or fever(s) Related Data Home Medications Medication Instructions Recorded Confirmed buprenorphine HCl 8 mg sublingual 16 mg sublingual DAILY 10/02/19 04/14/24 tablet Previous Rx's Medication Instructions Recorded albuterol sulfate 90 mcg/actuation 1 - 2 inh inhalation Q6H PRN 07/12/22 aerosol inhaler (Ventolin HFA) shortness of breath or wheezing #6.7 grams celecoxib 100 mg capsule (Celebrex) 100 mg PO BID PRN pain #20 caps 04/29/23 gabapentin 300 mg capsule 1,200 mg (4 x 300 mg) PO TID #90 04/29/23 caps famotidine 20 mg tablet (Pepcid) 20 mg PO BID #30 tabs 11/24/23 cetirizine 10 mg tablet (Zyrtec) 10 mg PO DAILY #30 tabs 11/27/23 fluticasone propionate 50 2 spray intranasal DAILY #16 grams 11/27/23 mcg/actuation nasal spray,suspension (Flonase Allergy Relief) ondansetron HCl 4 mg tablet 4 mg PO Q8H PRN nausea and 01/02/24 vomiting #5 tabs famotidine 40 mg tablet (Pepcid) 40 mg PO BID #20 tabs 02/11/24 ibuprofen 600 mg tablet 600 mg PO TID PRN pain #30 tabs 02/11/24 methocarbamol 750 mg tablet 750 mg PO Q8H PRN pain #30 tabs 02/11/24 fluconazole 150 mg tablet 150 mg PO Q3D 2 doses #2 tabs 02/25/24 Allergies Allergy/AdvReac Type Severity Reaction Status Date / Time sumatriptan [From Imitrex] Allergy Intermediate swollen Verified 03/12/24 11:56 throat Review of Systems Const: Denies: fever(s) or chills Card: Denies: chest pain Resp: Denies: dyspnea GI: Denies: abdominal pain : Denies: dysuria, urinary frequency or urinary urgency Musc: Denies: neck pain or back pain Skin/Breast: Denies: rash PFSH ED PFSH: Medical History (Updated 05/05/24 @ 06:09 by Duong Kiser DO) Neck pain Fall as cause of accidental injury at home as place of occurrence Encounter for long-term opiate analgesic use 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 Low back pain Surgical History History of eye prosthesis Family History Mother Diabetes Father Heart disease Arthritis Social History Smoking and tobacco/nicotine status: current every day tobacco/nicotine user Alcohol intake: never Substance/Drug Use: never Lives independently: Yes Household members: family and children Housing: House Marital status: Single Current occupational status: unemployed Physical Exam Const: COMMON NORMALS: no acute distress GENERAL APPEARANCE: cooperative and comfortable ORIENTATION/CONSCIOUSNESS: Yes awake, Yes oriented to person, Yes oriented to place and Yes oriented to time HENMT: COMMON NORMALS: normocephalic, atraumatic, hearing grossly normal bilaterally, external ears normal, EAC's normal, TM's normal bilaterally and Normal nasal mucous membranes and turbinates present HEAD & SCALP: normocephalic and atraumatic NOSE: Normal nasal mucous membranes and turbinates present EXTERNAL EAR: Yes external ears normal EXTERNAL AUDITORY CANAL: EAC's normal TYMPANIC MEMBRANE: TM's normal bilaterally MOUTH: Normal oral and palatal mucosa present THROAT: posterior oropharynx normal Eye: COMMON NORMALS: Equal, round and reactive pupils present, EOMs intact bilaterally, conjunctivae normal and no scleral icterus CONJUNCTIVA: Yes conjunctivae normal PUPIL: Yes Equal, round and reactive pupils present Neck/C-Spine: COMMON NORMALS: full ROM, no lymphadenopathy and supple Lymph: LYMPHATIC: no lymphadenopathy noted and no lymphedema noted Resp: COMMON NORMALS: normal respiratory effort, No retractions, No use of accessory muscles and clear to auscultation bilaterally AUSCULTATION: clear to auscultation bilaterally Cardio: COMMON NORMALS: regular rate, regular rhythm and No murmurs present (Cardio) RATE: regular rate RHYTHM: regular rhythm Extremity: COMMON NORMALS: normal to inspection, capillary refill normal and no clubbing, cyanosis or edema Neuro: SENSORIUM/ORIENTATION: Yes oriented to person, Yes oriented to place and Yes oriented to time Skin: OTHER: 1 small area mid back at about the thora columbar junction to the right of the spine slightly reddened. Does not appear to be folliculitis is no palpable nodule no abscess. It is mostly superficial there is some dry skin over lying the area. It appears to be small patch of eczematous skin. No other patches noted Course Vital Signs: Vital signs: Vital Signs Temperature 97 F L 05/05/24 05:34 Pulse Rate 75 05/05/24 06:11 Respiratory Rate 17 05/05/24 06:11 Blood Pressure 100/65 05/05/24 06:11 Pulse Oximetry 98 05/05/24 06:11 Oxygen Delivery Me thod Room Air 05/05/24 06:11 MDM - URI/Sore Throat Medical Decision Making Rapid strep is negative. Exam is otherwise unremarkable suspect patient's symptoms are due to viral syndrome. He can use [id number] cough cold remedies for the small area of eczema on his skin can apply topical [id number] hydrocortisone 2-3 times a day as needed if has persistent issues follow-up with primary care Lab Data Laboratory Results Group A Strep Rapid Negative (Negative) 05/05/24 05:47 No radiology studies performed this visit Discharge Plan Discharge Patient Disposition: Home Clinical Impression: Viral infection Condition: Stable Prescriptions: No Action buprenorphine HCl 8 mg tablet, sublingual 16 mg SUBLINGUAL DAILY Ventolin HFA 90 mcg/actuation HFA aerosol inhaler 1 - 2 inh inhalation Q6H PRN (Reason: shortness of breath or wheezing) Qty: 6.7 0RF famotidine [Pepcid] 20 mg tablet 20 mg PO BID Qty: 30 0RF ondansetron HCl 4 mg tablet 4 mg PO Q8H PRN (Reason: nausea and vomiting) Qty: 5 0RF famotidine [Pepcid] 40 mg tablet 40 mg PO BID Qty: 20 0RF ibuprofen 600 mg tablet 600 mg PO TID PRN (Reason: pain) Qty: 30 0RF methocarbamol 750 mg tablet 750 mg PO Q8H PRN (Reason: pain) Qty: 30 0RF Celebrex 100 mg capsule 100 mg PO BID PRN (Reason: pain) Qty: 20 0RF gabapentin 300 mg capsule 1,200 mg PO TID Qty: 90 0RF fluticasone propionate [Flonase Allergy Relief] 50 mcg/actuation spray,suspension 2 spray intranasal DAILY Qty: 16 0RF Rx Instructions: administer into each nostril cetirizine [Zyrtec] 10 mg tablet 10 mg PO DAILY Qty: 30 0RF fluconazole 150 mg tablet 150 mg PO Q3D Qty: 2 0RF Discharge Orders: Discharge ED (Routine); Ordered 05/05/24 Ordered By: Duong Kiser Discharge Diet: Usual diet Discharge Activity: Resume usual activity Patient Instructions: Viral Syndrome (ED), Opioid Safety, Pain Management Activity Restrictions/Additional Instructions: Thank you for choosing [facility] for your healthcare needs today. It is very important that you follow up as instructed or that you return to the Emergency Department should you have concerns or if your condition changes or worsens in any way. You were seen today for complaint sore throat and ear pain. Your exam was normal rapid strep was negative. Suspect you have a viral upper respiratory faction. Treated with [id number] remedies as needed such as Tylenol ibuprofen [id number] cough and cold fluid remedies to alleviate symptoms. He is also asked about some areas on your back today. To be a mild dry patches of skin (eczema), you can use [id number] hydrocortisone applied 2-3 times a day as needed Coding Level of Care Code ED Aids Counselor for Julianna Irene
[2024-05-05 05:58] LABS: Rapid Strep A Test Negative (Negative)
[2024-05-05 06:11] VITALS: BP 100/65; PULSE 75; RESP 17; O2SAT 98
== END 2024-05-05 06:17 | disposition home or self-care (01) ==
PROVIDERS: Emergency Medicine; Emergency Provider Family Medicine
DX: B34.9 Viral infection, unspecified (principal); L30.9 Dermatitis, unspecified
CPT/HCPCS: 87081; 87880; 99283

== ENCOUNTER 2024-05-17 22:32 | Emergency (ER) | payer BC, MEDICAID, SELFPAY ==
[2024-05-17 22:35] VITALS: BP 107/71; PULSE 74; RESP 16; TEMP 36.4; O2SAT 99
--- NOTE | 2024-05-17 23:17 | ED_ITS ---
HPI - URI/Sore Throat General: Chief Complaint: Upper Respiratory Infection Stated Complaint: sore throat Time Seen by Provider: 05/17/24 22:44 Source: patient Mode of arrival: ambulatory Limitations: no limitations History of Present Illness: Patient presents emergency department today for evaluation treatment of concerns for medication reaction to antibiotics provided to her for strep. Patient has sore throat and was seen several days ago. Rapid strep test was negative however, she was notified that her strep culture was positive. Chart review shows that she grew group C strep. When she was notified of the results, they did start her on antibiotics. Patient has a sensitivity to amoxicillin however, she took the medication provided to her. She states that within 24 hours began developing blisters inside of her mouth. She presents today for complaints of this reaction and to get a different antibiotic. Patient has not been vomiting. She is still tolerating oral intake. Related Data Home Medications Medication Instructions Recorded Confirmed buprenorphine HCl 8 mg sublingual 16 mg sublingual DAILY 10/02/19 04/14/24 tablet Previous Rx's Medication Instructions Recorded albuterol sulfate 90 mcg/actuation 1 - 2 inh inhalation Q6H PRN 07/12/22 aerosol inhaler (Ventolin HFA) shortness of breath or wheezing #6.7 grams celecoxib 100 mg capsule (Celebrex) 100 mg PO BID PRN pain #20 caps 04/29/23 gabapentin 300 mg capsule 1,200 mg (4 x 300 mg) PO TID #90 04/29/23 caps famotidine 20 mg tablet (Pepcid) 20 mg PO BID #30 tabs 11/24/23 cetirizine 10 mg tablet (Zyrtec) 10 mg PO DAILY #30 tabs 11/27/23 fluticasone propionate 50 2 spray intranasal DAILY #16 grams 11/27/23 mcg/actuation nasal spray,suspension (Flonase Allergy Relief) ondansetron HCl 4 mg tablet 4 mg PO Q8H PRN nausea and 01/02/24 vomiting #5 tabs famotidine 40 mg tablet (Pepcid) 40 mg PO BID #20 tabs 02/11/24 ibuprofen 600 mg tablet 600 mg PO TID PRN pain #30 tabs 02/11/24 methocarbamol 750 mg tablet 750 mg PO Q8H PRN pain #30 tabs 02/11/24 fluconazole 150 mg tablet 150 mg PO Q3D 2 doses #2 tabs 02/25/24 clindamycin HCl 300 mg capsule 300 mg PO Q12H 7 days #14 caps 05/17/24 Allergies Allergy/AdvReac Type Severity Reaction Status Date / Time sumatriptan [From Imitrex] Allergy Intermediate swollen Verified 05/17/24 22:41 throat amoxicillin Allergy ALGY-Bliste Verified 05/17/24 22:41 r Review of Systems General: Reports: 10 or more systems reviewed and unremarkable except in HPI and below PFSH ED PFSH: Medical History Neck pain Fall as cause of accidental injury at home as place of occurrence Encounter for long-term opiate analgesic use 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 Answers her own history. Vital signs are stable. HENMT: OTHER: Pharynx is erythematous but without exudate. Airway is patent. Mucous membranes are moist. Patient does have some small ulcerations noted to the inner mucosa of the lower lip. Eye: COMMON NORMALS: Equal, round and reactive pupils present, EOMs intact bilaterally and conjunctivae normal CONJUNCTIVA: Yes conjunctivae normal PUPIL: Yes Equal, round and reactive pupils present Neck/C-Spine: COMMON NORMALS: no JVD Lymph: LYMPHATIC: no lymphadenopathy noted Resp: COMMON NORMALS: normal respiratory effort, No retractions and No use of accessory muscles Cardio: COMMON NORMALS: no JVD and regular rate RATE: regular rate : COMMON NORMALS: Yes no CVA tenderness BLADDER/KIDNEY EXAM: Yes no CVA tenderness Back/Pelvis: COMMON NORMALS: no CVA tenderness, thoracic and lumbar spine normal to inspection and thoraco-lumbar ROM normal Extremity: COMMON NORMALS: normal to inspection, full ROM and no pedal edema Neuro: COMMON NORMALS: patient oriented x3 SENSORIUM/ORIENTATION: Yes alert Skin: COMMON NORMALS: no rashes or lesions noted and turgor normal GENERAL SKIN EXAM: no rashes or lesions noted and turgor normal Course Vital Signs: Vital signs: Vital Signs Temperature 97.6 F 05/17/24 22:35 Pulse Rate 63 05/17/24 23:39 Respiratory Rate 16 05/17/24 22:35 Blood Pressure 102/67 05/17/24 23:39 Pulse Oximetry 96 05/17/24 23:39 Oxygen Delivery Me thod Room Air 05/17/24 22:35 MDM - URI/Sore Throat Medical Decision Making Patient has positive strep culture findings indicative of strep C. Patient was given a penicillin-based medication though she states she has had a hypersensitivity to these in the past. I see no signs of any anaphylaxis or angioedema at this time but, did provide her a single dose of some steroid to help with her overall symptoms. I am switching her over to clindamycin to treat her strep. She is to continue to push fluids and can use Tylenol and ibuprofen for any residual discomfort. Discussed access to the emergency department through the weekend for any change or worsening in her condition. She verbalizes understanding and agreement to treatment plan. Differential Diagnosis Likely pharyngitis; Unlikely upper respiratory infection, croup, otitis media, sinusitis or bronchitis No radiology studies performed this visit Discharge Plan Discharge Patient Disposition: Home Clinical Impression: Streptococcal infection group C Condition: Stable Prescriptions: New clindamycin HCl 300 mg capsule 300 mg PO Q12H 7 Days Qty: 14 0RF No Action buprenorphine HCl 8 mg tablet, sublingual 16 mg SUBLINGUAL DAILY Ventolin HFA 90 mcg/actuation HFA aerosol inhaler 1 - 2 inh inhalation Q6H PRN (Reason: shortness of breath or wheezing) Qty: 6.7 0RF famotidine [Pepcid] 20 mg tablet 20 mg PO BID Qty: 30 0RF ondansetron HCl 4 mg tablet 4 mg PO Q8H PRN (Reason: nausea and vomiting) Qty: 5 0RF famotidine [Pepcid] 40 mg tablet 40 mg PO BID Qty: 20 0RF ibuprofen 600 mg tablet 600 mg PO TID PRN (Reason: pain) Qty: 30 0RF methocarbamol 750 mg tablet 750 mg PO Q8H PRN (Reason: pain) Qty: 30 0RF Celebrex 100 mg capsule 100 mg PO BID PRN (Reason: pain) Qty: 20 0RF gabapentin 300 mg capsule 1,200 mg PO TID Qty: 90 0RF fluticasone propionate [Flonase Allergy Relief] 50 mcg/actuation spray,suspension 2 spray intranasal DAILY Qty: 16 0RF Rx Instructions: administer into each nostril cetirizine [Zyrtec] 10 mg tablet 10 mg PO DAILY Qty: 30 0RF fluconazole 150 mg tablet 150 mg PO Q3D Qty: 2 0RF Discharge Orders: Discharge ED (Routine); Ordered 05/17/24 Ordered By: Tiffany Crawford Discharge Diet: Advance as tolerated Discharge Activity: Increase activity as tolerated Patient Instructions: Strep Throat - Adult Activity Restrictions/Additional Instructions: Based off of your throat culture results, you did grow strep C. As we discussed, the rapid strep test that we performed only look for strep a as it is the strain of strep that can cause issues with your heart and cause scarlatina. However, there are multiple other strains of strep which can still cause symptoms of fever and sore throat. Luckily, antibiotics can treat this infection as well. However, as you have a sensitivity to amoxicillin I want you to stop taking amoxicillin. I have provided you a new antibiotic which we started tonight in the emergency department. Have sent the rest to your preferred pharmacy to be picked up and continued in the morning. I did check your medications list and it appears you have tolerated this medication in the past. I also gave you a shot of some steroid to help decrease the response and sensitivity you have to the penicillin and also provide you some pain relief from your sore throat. Continue to watch for any swelling of your face, lips, tongue, or throat while the amoxicillin can remain in your system for a couple of days. It is possible that you could develop a delayed reaction to the medication and you need to be seen and reevaluated back in the emergency department if that occurs. Coding Level of Care Code ED Integration Architect for Julianna Irene
[2024-05-17] MEDS: dexamethasone 10 mg/mL INJ IM (23:29)
[2024-05-17] MEDS: clindamycin 150 mg Capsule 300 MG PO (23:29)
[2024-05-17 23:39] VITALS: BP 102/67; PULSE 63; O2SAT 96
== END 2024-05-17 23:41 | disposition home or self-care (01) ==
PROVIDERS: Emergency Provider Physician Assistant
DX: A49.1 Streptococcal infection, unspecified site (principal); Z72.0 Tobacco use
CPT/HCPCS: 96372; 99284; J1100

== ENCOUNTER 2024-05-19 04:51 | Emergency (ER) | payer BC, MEDICAID, SELFPAY ==
[2024-05-19 04:52] VITALS: BP 116/80; PULSE 74; RESP 18; TEMP 36.6; O2SAT 100
--- NOTE | 2024-05-19 05:01 | ED_ITS ---
HPI - General Adult General: Chief complaint: Upper Respiratory Infection Stated complaint: cant swollow, losing voice throat sore swollen Time Seen by Provider: 05/19/24 04:54 History of Present Illness: Patient presents today with complaints of sore throat losing her voice. Patient is on clindamycin for strep throat she was seen yesterday got a dose steroids she says she is not much better. She said they usually send her home on a steroid pack but they did not last time. She would like 1 this time. Related Data Home Medications Medication Instructions Recorded Confirmed buprenorphine HCl 8 mg sublingual 16 mg sublingual DAILY 10/02/19 04/14/24 tablet Previous Rx's Medication Instructions Recorded albuterol sulfate 90 mcg/actuation 1 - 2 inh inhalation Q6H PRN 07/12/22 aerosol inhaler (Ventolin HFA) shortness of breath or wheezing #6.7 grams celecoxib 100 mg capsule (Celebrex) 100 mg PO BID PRN pain #20 caps 04/29/23 gabapentin 300 mg capsule 1,200 mg (4 x 300 mg) PO TID #90 04/29/23 caps famotidine 20 mg tablet (Pepcid) 20 mg PO BID #30 tabs 11/24/23 cetirizine 10 mg tablet (Zyrtec) 10 mg PO DAILY #30 tabs 11/27/23 fluticasone propionate 50 2 spray intranasal DAILY #16 grams 11/27/23 mcg/actuation nasal spray,suspension (Flonase Allergy Relief) ondansetron HCl 4 mg tablet 4 mg PO Q8H PRN nausea and 01/02/24 vomiting #5 tabs famotidine 40 mg tablet (Pepcid) 40 mg PO BID #20 tabs 02/11/24 ibuprofen 600 mg tablet 600 mg PO TID PRN pain #30 tabs 02/11/24 methocarbamol 750 mg tablet 750 mg PO Q8H PRN pain #30 tabs 02/11/24 fluconazole 150 mg tablet 150 mg PO Q3D 2 doses #2 tabs 02/25/24 clindamycin HCl 300 mg capsule 300 mg PO Q12H 7 days #14 caps 05/17/24 methylprednisolone 4 mg tablets in See Rx Instructions PO .COMPLEX 05/19/24 a dose pack (Medrol (Bg)) #21 ea Allergies Allergy/AdvReac Type Severity Reaction Status Date / Time sumatriptan [From Imitrex] Allergy Intermediate swollen Verified 05/17/24 22:41 throat amoxicillin Allergy ALGY-Bliste Verified 05/17/24 22:41 r Review of Systems General: Reports: 10 or more systems reviewed and unremarkable except in HPI and below PFSH ED PFSH: Medical History Neck pain Fall as cause of accidental injury at home as place of occurrence Encounter for long-term opiate analgesic use 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pen[facility] (current) use of opiate analgesic Low back pain Surgical History History of eye prosthesis Family History Mother Diabetes Father Heart disease Arthritis Social History Smoking and tobacco/nicotine status: current every day tobacco/nicotine user Alcohol intake: never Substance/Drug Use: never Lives independently: Yes Household members: family and children Housing: House Marital status: Single Current occupational status: unemployed Physical Exam Const: COMMON NORMALS: no acute distress, average body habitus, patient oriented x3, no limitations, healthy appearing, alert and well nourished HENMT: COMMON NORMALS: normocephalic, atraumatic, hearing grossly normal bilaterally, external ears normal, Normal external nose present and moist oral mucous membranes; nasal mucous membranes&turbinates abnorm (White patches on both tonsillar regions.) HEAD & SCALP: normocephalic and atraumatic NOSE: Normal external nose present; nasal mucous membranes&turbinates abnorm (White patches on both tonsillar regions.) EXTERNAL EAR: Yes external ears normal Neck/C-Spine: COMMON NORMALS: full ROM, supple, no meningeal signs, no JVD and Thyroid normal; negative for no lymphadenopathy (Tender right-sided cervical anterior lymphadenopathy) THYROID: Thyroid normal Cardio: COMMON NORMALS: no JVD Neuro: COMMON NORMALS: patient oriented x3 SENSORIUM/ORIENTATION: Yes alert MENINGEAL SIGNS: Yes no meningeal signs Course Vital Signs: Vital signs: Vital Signs Temperature 97.9 F 05/19/24 04:52 Pulse Rate 74 05/19/24 04:52 Respiratory Rate 18 11/09/24 04:52 Blood Pressure 116/80 11/09/24 04:52 Pulse Oximetry 100 05/19/24 04:52 Oxygen Delivery Me thod Room Air 05/19/24 04:52 MDM - General Adult Medical Decision Making Patient on appropriate antibiotics clindamycin for strep throat, we will send the patient home with a prescription for Medrol Dosepak and discharge. Medical Records I reviewed the patient's medical records. Lab Data I reviewed the patient's lab results. No radiology studies performed this visit Discharge Plan Discharge Patient Disposition: Home Clinical Impression: Streptococcal infection group C Condition: Stable Prescriptions: New methylprednisolone [Medrol (Bg)] 4 mg tablets,dose pack See Rx Instructions .ROUTE .COMPLEX Qty: 21 0RF Rx Instructions: for 6 days No Action buprenorphine HCl 8 mg tablet, sublingual 16 mg SUBLINGUAL DAILY Ventolin HFA 90 mcg/actuation HFA aerosol inhaler 1 - 2 inh inhalation Q6H PRN (Reason: shortness of breath or wheezing) Qty: 6.7 0RF famotidine [Pepcid] 20 mg tablet 20 mg PO BID Qty: 30 0RF ondansetron HCl 4 mg tablet 4 mg PO Q8H PRN (Reason: nausea and vomiting) Qty: 5 0RF famotidine [Pepcid] 40 mg tablet 40 mg PO BID Qty: 20 0RF ibuprofen 600 mg tablet 600 mg PO TID PRN (Reason: pain) Qty: 30 0RF methocarbamol 750 mg tablet 750 mg PO Q8H PRN (Reason: pain) Qty: 30 0RF Celebrex 100 mg capsule 100 mg PO BID PRN (Reason: pain) Qty: 20 0RF gabapentin 300 mg capsule 1,200 mg PO TID Qty: 90 0RF fluticasone propionate [Flonase Allergy Relief] 50 mcg/actuation spray,suspension 2 spray intranasal DAILY Qty: 16 0RF Rx Instructions: administer into each nostril cetirizine [Zyrtec] 10 mg tablet 10 mg PO DAILY Qty: 30 0RF fluconazole 150 mg tablet 150 mg PO Q3D Qty: 2 0RF clindamycin HCl 300 mg capsule 300 mg PO Q12H 7 Days Qty: 14 0RF Discharge Orders: Discharge ED (Routine); Ordered 05/19/24 Ordered By: Lennox Fischer Patient Instructions: Strep Throat - Adult Activity Restrictions/Additional Instructions: Medrol Dosepak has been sent to your pharmacy. Please pick it up today and take it as directed. Coding Level of Care Code ED Coal [employer] Supervisor for Julianna Irene
[2024-05-19 05:03] VITALS: BP 116/80; PULSE 73; RESP 18; O2SAT 99
[2024-05-19 05:11] VITALS: BP 116/80; PULSE 71; RESP 18; O2SAT 97
== END 2024-05-19 05:12 | disposition home or self-care (01) ==
PROVIDERS: Emergency Provider Emergency Medicine
DX: A49.1 Streptococcal infection, unspecified site (principal); Z72.0 Tobacco use
CPT/HCPCS: 99283

== ENCOUNTER 2024-06-03 17:40 | Emergency (ER) | payer BC, MEDICAID, SELFPAY ==
[2024-06-03 17:41] VITALS: PULSE 93; RESP 18; TEMP 36.7; O2SAT 98; BMI 23.8
[2024-06-03] MEDS: ketorolac 60 mg/2 mL INJ IM (18:16)
[2024-06-03] MEDS: diphenhydrAMINE 50 mg/mL SDV 1mL IM (18:16)
[2024-06-03] MEDS: dexamethasone 10 mg/mL INJ IM (18:16)
[2024-06-03 18:17] VITALS: BP 143/71; PULSE 93; RESP 18; O2SAT 98
--- NOTE | 2024-06-03 18:17 | ED_ITS ---
HPI - Skin/Abscess/Foreign Bdy General: Chief complaint: Skin/Abscess/Foreign Body Stated complaint: has strep; back rash and neck pain Time Seen by Provider: 06/03/24 17:48 Source: patient Mode of arrival: ambulatory Limitations: no limitations History of Present Illness: 48-year-old female states that she recen tly was diagnosed with strep she just finished Augmentin she states that she is still having some throat pain she also developed a rash to her back. Denies any difficulty swallowing denies any fevers. Associated symptoms: Deny chills, fever(s), nausea or vomiting Related Data Home Medications Medication Instructions Recorded Confirmed buprenorphine HCl 8 mg sublingual 16 mg sublingual DAILY 10/02/19 05/26/24 tablet spironolactone 25 mg tablet 25 mg PO BID 05/26/24 05/26/24 Previous Rx's Medication Instructions Recorded albuterol sulfate 90 mcg/actuation 1 - 2 inh inhalation Q6H PRN 07/12/22 aerosol inhaler (Ventolin HFA) shortness of breath or wheezing #6.7 grams gabapentin 300 mg capsule 1,200 mg (4 x 300 mg) PO TID #90 04/29/23 caps cetirizine 10 mg tablet (Zyrtec) 10 mg PO DAILY #30 tabs 11/27/23 azithromycin 500 mg tablet 500 mg PO DAILY 7 days #7 tabs 05/26/24 Allergies Allergy/AdvReac Type Severity Reaction Status Date / Time sumatriptan [From Imitrex] Allergy Intermediate swollen Verified 06/03/24 17:46 throat amoxicillin Allergy ALGY-Bliste Verified 06/03/24 17:46 r Review of Systems Const: Denies: fever(s), chills, body aches or change in appetite ENMT: Reports: throat pain; Denies: dental pain Card: Denies: chest pain Resp: Denies: dyspnea GI: Denies: abdominal pain, nausea, vomiting or diarrhea Musc: Denies: neck pain or back pain Skin/Breast: Reports: rash Neuro: Denies: headache(s) PFSH ED PFSH: Medical History Neck pain Fall as cause of accidental injury at home as place of occurrence Encounter for long-term opiate analgesic use 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 Low back pain Surgical History History of eye prosthesis Family History Mother Diabetes Father Heart disease Arthritis Social History Smoking and tobacco/nicotine status: current every day tobacco/nicotine user Alcohol intake: never Substance/Drug Use: never Lives independently: Yes Household members: family and children Housing: House Marital status: Single Current occupational status: unemployed Female Reproductive History: Date of last menstrual period: 05/03/24 Physical Exam Const: COMMON NORMALS: no acute distress, patient oriented x3 and healthy appearing HENMT: COMMON NORMALS: normocephalic and atraumatic HEAD & SCALP: normocephalic and atraumatic THROAT: posterior oropharynx normal Eye: COMMON NORMALS: Equal, round and reactive pupils present and EOMs intact bilaterally PUPIL: Yes Equal, round and reactive pupils present Neck/C-Spine: COMMON NORMALS: full ROM and supple Chest: COMMONS NORMALS: normal inspection of the chest Resp: COMMON NORMALS: normal respiratory effort Cardio: COMMON NORMALS: regular rate, regular rhythm and No murmurs present (Cardio) RATE: regular rate RHYTHM: regular rhythm Extremity: COMMON NORMALS: normal to inspection and full ROM Neuro: COMMON NORMALS: patient oriented x3, moves all extremities and no focal motor deficits Psych: COMMON NORMALS: mental status grossly normal, Normal thought process present and cooperative THOUGHT PROCESS: Normal thought process present Skin: COMMON NORMALS: no wounds NARRATIVE SKIN EXAM: Nonspecific maculopapular rash to back Course Vital Signs: Vital signs: Vital Signs Temperature 98.1 F 06/03/24 17:41 Pulse Rate 93 06/03/24 17:41 Respiratory Rate 18 06/03/24 17:41 Pulse Oximetry 98 06/03/24 17:41 Oxygen Delivery Me thod Room Air 06/03/24 17:41 MDM - Skin/Abscess/Foreign Bdy Medicial Decision Making Patient presents for sore throat her exam here is normal no signs of abscess no signs of strep at this time. She also has a nonspecific rash to her back likely allergic will give her a dose of steroid and Benadryl here she is take Benadryl at home she stable for discharge follow-up with PCP return if worsening. No radiology studies performed this visit Discharge Plan Discharge Patient Disposition: Home Clinical Impression: Throat pain, Rash Condition: Stable Prescriptions: No Action buprenorphine HCl 8 mg tablet, sublingual 16 mg SUBLINGUAL DAILY Ventolin HFA 90 mcg/actuation HFA aerosol inhaler 1 - 2 inh inhalation Q6H PRN (Reason: shortness of breath or wheezing) Qty: 6.7 0RF spironolactone 25 mg tablet 25 mg PO BID azithromycin 500 mg tablet 500 mg PO DAILY 7 Days Qty: 7 0RF gabapentin 300 mg capsule 1,200 mg PO TID Qty: 90 0RF cetirizine [Zyrtec] 10 mg tablet 10 mg PO DAILY Qty: 30 0RF Discharge Orders: Discharge ED (Routine); Ordered 06/03/24 Ordered By: Zachariah Sanabria Discharge Diet: Advance as tolerated Discharge Activity: Resume usual activity Patient Instructions: Acute Rash (ED), Sore Throat - Adult Coding Level of Care Code ED Station Mechanic Apprentice for Julianna Irene
== END 2024-06-03 18:18 | disposition home or self-care (01) ==
PROVIDERS: Emergency Provider Emergency Medicine
DX: R07.0 Pain in throat (principal); R21 Rash and other nonspecific skin eruption; Z72.0 Tobacco use
CPT/HCPCS: 96372; 99284; J1100; J1200; J1885

== ENCOUNTER → 2024-06-16 11:28 | Outpatient (BNVA) | payer BC, MEDICAID, SELFPAY | PROVIDERS: Visit Provider Emergency Medicine | DX: J02.9 Acute pharyngitis, unspecified (principal) | CPT/HCPCS: 87071; 87880 ==

== ENCOUNTER 2024-06-22 04:00 | Emergency (ER) | payer BC, MEDICAID, SELFPAY ==
[2024-06-22 04:12] VITALS: BP 122/80; PULSE 75; RESP 16; TEMP 36.7; O2SAT 100; BMI 22.3
--- NOTE | 2024-06-22 04:26 | W.ED.EXTPRO ---
HPI - Extremity Problem General: Chief complaint: Extremity Problem,Nontraumatic Stated complaint: Back Pain\Rt Arm Pain Time Seen by Provider: 06/22/24 04:15 History of Present Illness: Patient presents to the ER with complaints of right arm pain. The about 3 AM this morning. Patient took her gabapentin and her acetaminophen still no results. Patient has a known chronic neck and back pain. Patient said usually they give her a shot of pain medicine and a dose of steroids and this settles down. Patient denies any new injury. Related Data Home Medications Medication Instructions Recorded Confirmed buprenorphine HCl 8 mg sublingual 16 mg sublingual DAILY 10/02/19 06/16/24 tablet spironolactone 25 mg tablet 25 mg PO BID 05/26/24 06/16/24 tizanidine 2 mg capsule 2 mg PO Q8H PRN 06/16/24 06/16/24 Previous Rx's Medication Instructions Recorded albuterol sulfate 90 mcg/actuation 1 - 2 inh inhalation Q6H PRN 07/12/22 aerosol inhaler (Ventolin HFA) shortness of breath or wheezing #6.7 grams gabapentin 300 mg capsule 1,200 mg (4 x 300 mg) PO TID #90 04/29/23 caps cetirizine 10 mg tablet (Zyrtec) 10 mg PO DAILY #30 tabs 11/27/23 azithromycin 500 mg tablet 500 mg PO DAILY 5 days #5 tabs 06/16/24 (Zithromax) hydroxyzine HCl 50 mg tablet 50 mg PO Q6H PRN nausea and 06/16/24 vomiting #30 tabs triamcinolone acetonide 0.1 % 1 applic topical BID #60 mL 06/19/24 lotion Allergies Allergy/AdvReac Type Severity Reaction Status Date / Time sumatriptan [From Imitrex] Allergy Intermediate swollen Verified 06/22/24 04:16 throat amoxicillin Allergy ALGY-Bliste Verified 06/22/24 04:16 r Penicillins Allergy ALGY-Bliste Verified 06/22/24 04:17 r Review of Systems General: Reports: 10 or more systems reviewed and unremarkable except in HPI and below PFSH ED PFSH: Medical History Neck pain Fall as cause of accidental injury at home as place of occurrence Encounter for long-term opiate analgesic use 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[employer] (current) use of opiate analgesic Low back pain Surgical History History of eye prosthesis Family History Mother Diabetes Father Heart disease Arthritis Social History Smoking and tobacco/nicotine status: current every day tobacco/nicotine user Alcohol intake: never Substance/Drug Use: never Lives independently: Yes Household members: family and children Housing: House Marital status: Single Current occupational status: unemployed Physical Exam Const: COMMON NORMALS: no acute distress, average body habitus, patient oriented x3, no limitations, healthy appearing, alert and well nourished HENMT: COMMON NORMALS: normocephalic, atraumatic, hearing grossly normal bilaterally, external ears normal, Normal external nose present and moist oral mucous membranes HEAD & SCALP: normocephalic and atraumatic NOSE: Normal external nose present EXTERNAL EAR: Yes external ears normal Neck/C-Spine: COMMON NORMALS: full ROM, no lymphadenopathy, supple, no meningeal signs, no JVD and Thyroid normal THYROID: Thyroid normal Chest: COMMONS NORMALS: normal inspection of the chest and normal palpation of entire chest wall Resp: COMMON NORMALS: normal respiratory effort, No retractions, No use of accessory muscles and clear to auscultation bilaterally AUSCULTATION: clear to auscultation bilaterally Cardio: COMMON NORMALS: no JVD, regular rate, regular rhythm, S1 normal heart sound present, S2 normal heart sound present, No gallops present (Cardio), No clicks present (Cardio), No murmurs present (Cardio) and No rub (Cardio) RATE: regular rate RHYTHM: regular rhythm HEART SOUNDS: S1 normal heart sound present and S2 normal heart sound present GI: COMMON NORMALS: Normal to inspection, nondistended, normoactive bowel sounds present, Soft to palpation, non-tender, No hepatosplenomegaly present and no masses PALPATION: Yes Soft to palpation and Yes No hepatosplenomegaly present Neuro: COMMON NORMALS: patient oriented x3 SENSORIUM/ORIENTATION: Yes alert MENINGEAL SIGNS: Yes no meningeal signs Course Vital Signs: Vital signs: Vital Signs Temperature 98.1 F 06/22/24 04:12 Pulse Rate 75 06/22/24 04:12 Respiratory Rate 16 06/22/24 04:12 Blood Pressure 122/80 06/22/24 04:12 Pulse Oximetry 100 06/22/24 04:12 Oxygen Delivery Me thod Room Air 06/22/24 04:12 MDM - Extremity (Nontraumatic) Medical Decision Making Patient had no new trauma open chronic neck pain and right arm pain. Patient was given a shot of Toradol and Decadron. Patient be discharged home. Medical Records I reviewed the patient's medical records. Lab Data I reviewed the patient's lab results. No radiology studies performed this visit Discharge Plan Discharge Patient Disposition: Home Clinical Impression: Arm pain, right Condition: Stable Prescriptions: No Action buprenorphine HCl 8 mg tablet, sublingual 16 mg SUBLINGUAL DAILY Ventolin HFA 90 mcg/actuation HFA aerosol inhaler 1 - 2 inh inhalation Q6H PRN (Reason: shortness of breath or wheezing) Qty: 6.7 0RF spironolactone 25 mg tablet 25 mg PO BID gabapentin 300 mg capsule 1,200 mg PO TID Qty: 90 0RF cetirizine [Zyrtec] 10 mg tablet 10 mg PO DAILY Qty: 30 0RF tizanidine 2 mg capsule 2 mg PO Q8H PRN azithromycin [Zithromax] 500 mg tablet 500 mg PO DAILY 5 Days Qty: 5 0RF hydroxyzine HCl 50 mg tablet 50 mg PO Q6H PRN (Reason: nausea and vomiting) Qty: 30 0RF triamcinolone acetonide 0.1 % lotion 1 applic topical BID Qty: 60 0RF Discharge Orders: Discharge ED (Routine); Ordered 06/22/24 Ordered By: Lennox Fischer Patient Instructions: Arm Pain (ED) Activity Restrictions/Additional Instructions: Thank you for choosing [facility] for your healthcare needs today. Please realize that you were seen in the emergency department and that we are providing you with an emergency medical screening exam and this may not be a complete and all exclusive of all testing and/or medical workup we may need to determine your element or severity of your illness. It is very important that you follow-up as instructed with your primary care provider or specialist for the additional evaluation and to discuss your medical treatment plan. You may return to the emergency department should you have concerns or if your condition changes or worsens in any way. Coding Level of Care Code ED Front Office Help for Julianna Irene
[2024-06-22] MEDS: dexamethasone 10 mg/mL INJ IM (04:28)
[2024-06-22] MEDS: ketorolac 60 mg/2 mL INJ IM (04:28)
[2024-06-22 04:57] VITALS: BP 122/80; PULSE 68; O2SAT 97
== END 2024-06-22 04:58 | disposition home or self-care (01) ==
PROVIDERS: Emergency Provider Emergency Medicine
DX: M79.601 Pain in right arm (principal); Z72.0 Tobacco use
CPT/HCPCS: 96372; 99284; J1100; J1885

== ENCOUNTER 2024-07-05 03:47 | Emergency (ER) | payer BC, MEDICAID, SELFPAY ==
[2024-07-05 04:01] VITALS: BP 114/65; PULSE 82; RESP 18; TEMP 36.6; O2SAT 99; BMI 24.0
--- NOTE | 2024-07-05 04:10 | W.ED.BACK ---
HPI - Back Pain/Injury General: Chief Complaint: Back Pain/Injury Stated Complaint: back pain on left side Time Seen by Provider: 07/05/24 03:55 History of Present Illness: 48-year-old female with history of chronic pain syndrome who presents emergency room with left sciatic pain and low back pain. Says he has this occasionally. She takes hydrocodone normally but it was not time for it yet. She has not taken anything else. No saddle numbness, no urinary retention or incontinence, no focal motor deficit, no sensory deficit. no recent fever. no cough. no shortness of breath. no chest pain. no abdominal pain. no nausea or vomiting. no dysuria. no altered mental status. no edema. Related Data Home Medications Medication Instructions Recorded Confirmed buprenorphine HCl 8 mg sublingual 16 mg sublingual DAILY 10/02/19 06/16/24 tablet spironolactone 25 mg tablet 25 mg PO BID 05/26/24 06/16/24 tizanidine 2 mg capsule 2 mg PO Q8H PRN 06/16/24 06/16/24 Previous Rx's Medication Instructions Recorded albuterol sulfate 90 mcg/actuation 1 - 2 inh inhalation Q6H PRN 07/12/22 aerosol inhaler (Ventolin HFA) shortness of breath or wheezing #6.7 grams gabapentin 300 mg capsule 1,200 mg (4 x 300 mg) PO TID #90 04/29/23 caps cetirizine 10 mg tablet (Zyrtec) 10 mg PO DAILY #30 tabs 11/27/23 azithromycin 500 mg tablet 500 mg PO DAILY 5 days #5 tabs 06/16/24 (Zithromax) hydroxyzine HCl 50 mg tablet 50 mg PO Q6H PRN nausea and 06/16/24 vomiting #30 tabs triamcinolone acetonide 0.1 % 1 applic topical BID #60 mL 06/19/24 lotion cyclobenzaprine 10 mg tablet 10 mg PO Q8H PRN muscle spasm #20 07/05/24 tabs dexamethasone 6 mg tablet 6 mg PO DAILY 5 days #5 tabs 07/05/24 diclofenac sodium 50 mg 50 mg PO BID PRN pain #14 tabs 07/05/24 tablet,delayed release Allergies Allergy/AdvReac Type Severity Reaction Status Date / Time sumatriptan [From Imitrex] Allergy Intermediate swollen Verified 06/22/24 04:16 throat amoxicillin Allergy ALGY-Bliste Verified 06/22/24 04:16 r Penicillins Allergy ALGY-Bliste Verified 06/22/24 04:17 r Review of Systems Narrative: Constitutional symptoms: Negative except as documented in HPI. Skin symptoms: Negative except as documented in HPI. Eye symptoms: Negative except as documented in HPI. ENMT symptoms: Negative except as documented in HPI. Respiratory symptoms: Negative except as documented in HPI. Cardiovascular symptoms: Negative except as documented in HPI. Gastrointestinal symptoms: Negative except as documented in HPI. Genitourinary symptoms: Negative except as documented in HPI. Musculoskeletal symptoms: Negative except as documented in HPI. Neurologic symptoms: Negative except as documented in HPI. Psychiatric symptoms: Negative except as documented in HPI. Endocrine symptoms: Negative except as documented in HPI. PFSH ED PFSH: Medical History Neck pain Fall as cause of accidental injury at home as place of occurrence Encounter for long-term opiate analgesic use 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[facility] (current) use of opiate analgesic Low back pain Surgical History History of eye prosthesis Family History Mother Diabetes Father Heart disease Arthritis Social History Smoking and tobacco/nicotine status: current every day tobacco/nicotine user Alcohol intake: never Substance/Drug Use: never Lives independently: Yes Household members: family and children Housing: House Marital status: Single Current occupational status: unemployed Physical Exam Narrative: EXAM NARRATIVE: General: Alert, no acute distress. Head: Normocephalic Neck: Trachea midline Eye: Extraocular movements are intact. Ears, nose, mouth and throat: Oral mucosa moist Respiratory: Respirations are non-labored Musculoskeletal: Normal ROM Back: no step off, no focal tenderness, some paraspinal muscle tenderness Neurological: Alert and oriented to person, place, time, and situation, No focal neurological deficit observed. Psychiatric: Cooperative, appropriate mood & affect. Course Vital Signs: Vital signs: Vital Signs Temperature 97.9 F 07/05/24 04:01 Pulse Rate 82 07/05/24 04:01 Respiratory Rate 18 07/05/24 04:01 Blood Pressure 114/65 07/05/24 04:01 Pulse Oximetry 99 07/05/24 04:01 Oxygen Delivery Me thod Room Air 07/05/24 04:01 MDM - Back Pain/Injury Medical Decision Making Assessment and plan: Sciatica Chronic pain syndrome ?IM Decadron, Toradol, Norflex and p.o. [place] here in the emergency room. - Discharged home - Discussed plan with patient. Answered any questions. - Evaluation and treatment of this problem were appropriate in the emergency setting. No radiology studies performed this visit Discharge Plan Discharge Patient Disposition: Home Clinical Impression: Sciatica, Chronic pain syndrome Condition: Stable Prescriptions: New cyclobenzaprine 10 mg tablet 10 mg PO Q8H PRN (Reason: muscle spasm) Qty: 20 0RF dexamethasone 6 mg tablet 6 mg PO DAILY 5 Days Qty: 5 0RF diclofenac sodium 50 mg tablet,delayed release (DR/EC) 50 mg PO BID PRN (Reason: pain) Qty: 14 0RF No Action buprenorphine HCl 8 mg tablet, sublingual 16 mg SUBLINGUAL DAILY Ventolin HFA 90 mcg/actuation HFA aerosol inhaler 1 - 2 inh inhalation Q6H PRN (Reason: shortness of breath or wheezing) Qty: 6.7 0RF spironolactone 25 mg tablet 25 mg PO BID gabapentin 300 mg capsule 1,200 mg PO TID Qty: 90 0RF cetirizine [Zyrtec] 10 mg tablet 10 mg PO DAILY Qty: 30 0RF tizanidine 2 mg capsule 2 mg PO Q8H PRN azithromycin [Zithromax] 500 mg tablet 500 mg PO DAILY 5 Days Qty: 5 0RF hydroxyzine HCl 50 mg tablet 50 mg PO Q6H PRN (Reason: nausea and vomiting) Qty: 30 0RF triamcinolone acetonide 0.1 % lotion 1 applic topical BID Qty: 60 0RF Discharge Orders: Discharge ED (Routine); Ordered 07/05/24 Ordered By: Antoinette Hatfield Discharge Diet: Usual diet Discharge Activity: Increase activity as tolerated Patient Instructions: Sciatica (ED), Opioid Safety, Pain Management Activity Restrictions/Additional Instructions: Thank you for choosing [facility] for your healthcare needs today. Please realize this is an emergency room and that we are providing you with a medical screening exam and this may not be complete and all inclusive of all the testing and or work up that you may need to determine your ailment or severity of your illness. You have been screened and evaluated and felt safe for discharge. Health conditions do change or evolve sometimes and as such it is important that you follow up with your Primary Doctor to be re checked, 3-5 days is a general good time frame for follow up. You are always welcome to return to the ED for re assessment if your symptoms are worsening or you have new concerns Coding Level of Care Code ED Law Enforcement Director for Julianna Irene
[2024-07-05] MEDS: HYDROcodone-acetaminophen 10-325 mg Tablet 1 TAB PO (04:34)
[2024-07-05] MEDS: dexamethasone 10 mg/mL INJ IM (04:35)
[2024-07-05] MEDS: ketorolac 60 mg/2 mL INJ IM (04:35)
[2024-07-05] MEDS: orphenadrine 30 mg/mL Inj 2 mL 60 MG IM (04:35)
[2024-07-05 04:45] VITALS: BP 112/64; PULSE 80; O2SAT 99
== END 2024-07-05 04:47 | disposition home or self-care (01) ==
PROVIDERS: Emergency Provider Emergency Medicine
DX: M54.32 Sciatica, left side (principal); G89.4 Chronic pain syndrome; Z72.0 Tobacco use
CPT/HCPCS: 96372; 99284; J1100; J1885; J2360

== ENCOUNTER → 2024-07-18 17:38 | Outpatient (BNVA) | payer BC, MEDICAID, SELFPAY | PROVIDERS: Visit Provider Emergency Medicine | DX: J02.9 Acute pharyngitis, unspecified (principal) | CPT/HCPCS: 87880 ==

== ENCOUNTER 2024-07-20 03:14 | Emergency (ER) | payer BC, MEDICAID, SELFPAY ==
[2024-07-20 03:27] VITALS: BP 113/63; PULSE 104; RESP 18; TEMP 36.4; O2SAT 97; BMI 24.0
[2024-07-20] MEDS: cefTRIAXone 1,000 MG in water for injection-sterile 2.1 ML 2.1 MG IM (03:31)
--- NOTE | 2024-07-20 03:31 | W.ED.URI ---
HPI - URI/Sore Throat General: Chief Complaint: Upper Respiratory Infection Stated Complaint: strep + head pressure Time Seen by Provider: 07/20/24 03:27 History of Present Illness: Patient has had a sore throat and headache for several days now. She has had some nasal congestion. She was seen in family clinic and diagnosed with strep throat. She was started on a Z-Bg and some steroids. She says her headaches been worse. She continues to have a sore throat. She has had 2 days of antibiotics now. Related Data Home Medications Medication Instructions Recorded Confirmed buprenorphine HCl 8 mg sublingual 16 mg sublingual DAILY 10/02/19 07/18/24 tablet spironolactone 25 mg tablet 25 mg PO BID 05/26/24 07/18/24 tizanidine 2 mg capsule 2 mg PO Q8H PRN 06/16/24 07/18/24 Previous Rx's Medication Instructions Recorded albuterol sulfate 90 mcg/actuation 1 - 2 inh inhalation Q6H PRN 07/12/22 aerosol inhaler (Ventolin HFA) shortness of breath or wheezing #6.7 grams gabapentin 300 mg capsule 1,200 mg (4 x 300 mg) PO TID #90 04/29/23 caps cetirizine 10 mg tablet (Zyrtec) 10 mg PO DAILY #30 tabs 11/27/23 hydroxyzine HCl 50 mg tablet 50 mg PO Q6H PRN nausea and 06/16/24 vomiting #30 tabs triamcinolone acetonide 0.1 % 1 applic topical BID #60 mL 06/19/24 lotion cyclobenzaprine 10 mg tablet 10 mg PO Q8H PRN muscle spasm #20 07/05/24 tabs diclofenac sodium 50 mg 50 mg PO BID PRN pain #14 tabs 07/05/24 tablet,delayed release azithromycin 250 mg tablet See Rx Instructions PO .COMPLEX #6 07/18/24 tabs dexamethasone 2 mg tablet 10 mg (5 x 2 mg) PO DAILY 1 day #5 07/18/24 tabs cefdinir 300 mg capsule 300 mg PO BID 7 days #14 caps 07/20/24 diclofenac sodium 50 mg 50 mg PO BID PRN pain #14 tabs 07/20/24 tablet,delayed release fluconazole 100 mg tablet 100 mg PO DAILY #7 tabs 07/20/24 Allergies Allergy/AdvReac Type Severity Reaction Status Date / Time sumatriptan [From Imitrex] Allergy Intermediate swollen Verified 07/18/24 17:36 throat amoxicillin Allergy ALGY-Bliste Verified 07/18/24 17:36 r Penicillins Allergy ALGY-Bliste Verified 07/18/24 17:36 r Review of Systems Narrative: Constitutional symptoms: Negative except as documented in HPI. Skin symptoms: Negative except as documented in HPI. Eye symptoms: Negative except as documented in HPI. ENMT symptoms: Negative except as documented in HPI. Respiratory symptoms: Negative except as documented in HPI. Cardiovascular symptoms: Negative except as documented in HPI. Gastrointestinal symptoms: Negative except as documented in HPI. Genitourinary symptoms: Negative except as documented in HPI. Musculoskeletal symptoms: Negative except as documented in HPI. Neurologic symptoms: Negative except as documented in HPI. Psychiatric symptoms: Negative except as documented in HPI. Endocrine symptoms: Negative except as documented in HPI. PFSH ED PFSH: Medical History Neck pain Fall as cause of accidental injury at home as place of occurrence Encounter for long-term opiate analgesic use 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[facility] (current) use of opiate analgesic Low back pain Surgical History History of eye prosthesis Family History Mother Diabetes Father Heart disease Arthritis Social History Smoking and tobacco/nicotine status: current every day tobacco/nicotine user Alcohol intake: never Substance/Drug Use: never Lives independently: Yes Household members: family and children Housing: House Marital status: Single Current occupational status: unemployed Physical Exam Narrative: EXAM NARRATIVE: General: Alert, no acute distress. Skin: warm and dry Head: Normocephalic Neck: Trachea midline Eye: Extraocular movements are intact. Ears, nose, mouth and throat: Oral mucosa moist Respiratory: Respirations are non-labored Musculoskeletal: Normal ROM Neurological: Alert and oriented, No focal neurological deficit observed. Psychiatric: Cooperative, appropriate mood & affect. Course Vital Signs: Vital signs: Vital Signs Temperature 97.5 F L 07/20/24 03:27 Pulse Rate 104 H 07/20/24 03:27 Respiratory Rate 18 07/20/24 03:27 Blood Pressure 113/63 07/20/24 03:27 Pulse Oximetry 97 07/20/24 03:27 MDM - URI/Sore Throat Medical Decision Making Assessment and plan: Strep pharyngitis Generalized headache ?Changing antibiotics to Omnicef. She request some fluconazole. Also given her some diclofenac. - Discharged home - Discussed plan with patient. Answered any questions. - Evaluation and treatment of this problem were appropriate in the emergency setting. No radiology studies performed this visit Discharge Plan Discharge Patient Disposition: Home Clinical Impression: Streptococcal pharyngitis, Generalized headache Condition: Stable Prescriptions: New fluconazole 100 mg tablet 100 mg PO DAILY Qty: 7 0RF diclofenac sodium 50 mg tablet,delayed release (DR/EC) 50 mg PO BID PRN (Reason: pain) Qty: 14 0RF cefdinir 300 mg capsule 300 mg PO BID 7 Days Qty: 14 0RF No Action buprenorphine HCl 8 mg tablet, sublingual 16 mg SUBLINGUAL DAILY Ventolin HFA 90 mcg/actuation HFA aerosol inhaler 1 - 2 inh inhalation Q6H PRN (Reason: shortness of breath or wheezing) Qty: 6.7 0RF spironolactone 25 mg tablet 25 mg PO BID azithromycin 250 mg tablet See Rx Instructions PO .COMPLEX Qty: 6 0RF Rx Instructions: take 2 tablets today (day 1), then one tablet for 4 days (days 2-5) PO dexamethasone 2 mg tablet 10 mg PO DAILY 1 Days Qty: 5 0RF Rx Instructions: take all at same time today gabapentin 300 mg capsule 1,200 mg PO TID Qty: 90 0RF cetirizine [Zyrtec] 10 mg tablet 10 mg PO DAILY Qty: 30 0RF tizanidine 2 mg capsule 2 mg PO Q8H PRN hydroxyzine HCl 50 mg tablet 50 mg PO Q6H PRN (Reason: nausea and vomiting) Qty: 30 0RF triamcinolone acetonide 0.1 % lotion 1 applic topical BID Qty: 60 0RF cyclobenzaprine 10 mg tablet 10 mg PO Q8H PRN (Reason: muscle spasm) Qty: 20 0RF diclofenac sodium 50 mg tablet,delayed release (DR/EC) 50 mg PO BID PRN (Reason: pain) Qty: 14 0RF Discharge Orders: Discharge ED (Routine); Ordered 07/20/24 Ordered By: Antoinette Hatfield Discharge Diet: Usual diet Discharge Activity: Increase activity as tolerated Patient Instructions: Strep Throat (ED), Opioid Safety, Pain Management Activity Restrictions/Additional Instructions: Thank you for choosing [facility] for your healthcare needs today. Please realize this is an emergency room and that we are providing you with a medical screening exam and this may not be complete and all inclusive of all the testing and or work up that you may need to determine your ailment or severity of your illness. You have been screened and evaluated and felt safe for discharge. Health conditions do change or evolve sometimes and as such it is important that you follow up with your Primary Doctor to be re checked, 3-5 days is a general good time frame for follow up. You are always welcome to return to the ED for re assessment if your symptoms are worsening or you have new concerns Coding Level of Care Code ED Gas Cutting Machine Operator for Julianna Irene
[2024-07-20] MEDS: ketorolac 60 mg/2 mL INJ IM (03:32)
[2024-07-20 03:46] VITALS: BP 113/63; PULSE 101; O2SAT 99
[2024-07-20 05:37] LABS: Adenovirus Not Detected (NOT DETECT); Chlamydia Pneumoniae Not Detected (NOT DETECT); Coronavirus 229E,HKU1,NL63,OC4 Not Detected (NOT DETECT); Human Metapneumovirus Not Detected (NOT DETECT); Human Rhinovirus/Enterovirus Not Detected (NOT DETECT); Influenza A Not Detected (NOT DETECT); Influenza A H1 Not Detected (NOT DETECT); Influenza A H1-2009 Not Detected (NOT DETECT); Influenza A H3 Not Detected (NOT DETECT); Influenza B Not Detected (NOT DETECT); Mycoplasma Pneumoniae Not Detected (NOT DETECT); Parainfluenza Virus Type 1 Not Detected (NOT DETECT); Parainfluenza Virus Type 2 Not Detected (NOT DETECT); Parainfluenza Virus Type 3 Not Detected (NOT DETECT); Parainfluenza Virus Type 4 Not Detected (NOT DETECT); Respiratory Syncytial Virus A Not Detected (NOT DETECT); Respiratory Syncytial Virus B Not Detected (NOT DETECT); SARS-COV-2 Not Detected (NOT DETECT)
== END 2024-07-20 03:47 | disposition home or self-care (01) ==
PROVIDERS: Emergency Provider Emergency Medicine
DX: J02.0 Streptococcal pharyngitis (principal); R51.9 Headache, unspecified; Z72.0 Tobacco use
CPT/HCPCS: 87486; 87581; 87633; 96372; 99284; J0696; J1885

== ENCOUNTER → 2024-08-31 18:16 | Outpatient (BNVA) | payer BC, MEDICAID, SELFPAY | PROVIDERS: Visit Provider Family Medicine | DX: J02.9 Acute pharyngitis, unspecified (principal) | CPT/HCPCS: 87071; 87400; 87880 ==

== ENCOUNTER 2024-12-26 14:07 | Inpatient (IN) | payer BC, MEDICAID, SELFPAY ==
[2024-12-26 14:09] VITALS: BP 113/68; PULSE 121; RESP 16; TEMP 36.7; O2SAT 96; BMI 22.3
--- NOTE | 2024-12-26 14:25 | W.ED.PSYCHS ---
HPI - Psych General: Chief Complaint: Psychiatric Symptoms Stated Complaint: 96 HR HOLD Time Seen by Provider: 12/26/24 14:11 History of Present Illness: 49-year-old female presents emergency room with custody of [facility] department under 96-hour hold. She has had auditory and visual hallucination she has made threats towards her family has a known history of methamphetamine abuse. Patient admits to using methamphetamine a few days ago. Affidavits on the chart which were reviewed patient admits to making threatening comments to family members during some heated arguments prior to coming in. Related Data Home Medications ?Medication ?Instructions ?Recorded ?Confirmed spironolactone 25 mg tablet 25 mg PO BID 05/26/24 12/26/24 celecoxib 100 mg capsule 100 mg PO BID 12/26/24 12/26/24 Previous Rx's ?Medication ?Instructions ?Recorded albuterol sulfate 90 mcg/actuation 1 - 2 inh inhalation Q6H PRN 07/12/22 aerosol inhaler (Ventolin HFA) shortness of breath or wheezing #6.7 grams gabapentin 300 mg capsule 1,200 mg (4 x 300 mg) PO TID #90 04/29/23 caps cetirizine 10 mg tablet (Zyrtec) 10 mg PO DAILY #30 tabs 11/27/23 Allergies Allergy/AdvReac Type Severity Reaction Status Date / Time sumatriptan (From Imitrex) Allergy Intermediate swollen Verified 10/10/24 18:42 throat amoxicillin Allergy ALGY-Bliste Verified 10/10/24 18:42 r Penicillins Allergy ALGY-Bliste Verified 10/10/24 18:42 r Review of Systems Const: Denies: fever(s) or chills Card: Denies: chest pain Resp: Denies: dyspnea GI: Denies: abdominal pain : Denies: dysuria, urinary frequency or urinary urgency Musc: Denies: neck pain or back pain Skin/Breast: Denies: rash PFSH ED PFSH: Medical History Allergic rhinosinusitis Neck pain Fall as cause of accidental injury at home as place of occurrence Encounter for long-term opiate analgesic use 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 (current) use of opiate analgesic Low back pain Surgical History History of eye prosthesis Family History Mother Diabetes Father Heart disease Arthritis Social History Smoking and tobacco/nicotine status: current every day tobacco/nicotine user Alcohol intake: never Substance/Drug Use: never Lives independently: Yes Household members: family and children Housing: House Marital status: Single Current occupational status: unemployed Physical Exam Const: GENERAL APPEARANCE: cooperative ORIENTATION/CONSCIOUSNESS: Yes awake, Yes oriented to person, Yes oriented to place and Yes oriented to time HENMT: COMMON NORMALS: normocephalic, atraumatic and hearing grossly normal bilaterally HEAD & SCALP: normocephalic and atraumatic Resp: COMMON NORMALS: normal respiratory effort, No retractions, No use of accessory muscles and clear to auscultation bilaterally AUSCULTATION: clear to auscultation bilaterally Cardio: COMMON NORMALS: regular rate, regular rhythm and No murmurs present (Cardio) RATE: regular rate RHYTHM: regular rhythm GI: COMMON NORMALS: Soft to palpation and No hepatosplenomegaly present AUSCULTATION: Yes normoactive bowel sounds PALPATION: Yes Soft to palpation, No Tenderness to palpation present (GI), No Guarding due to palpation present (GI) and Yes No hepatosplenomegaly present Extremity: COMMON NORMALS: normal to inspection, capillary refill normal, no clubbing, cyanosis or edema, no calf tenderness and no pedal edema Neuro: SENSORIUM/ORIENTATION: Yes oriented to person, Yes oriented to place and Yes oriented to time Skin: COMMON NORMALS: no rashes or lesions noted GENERAL SKIN EXAM: no rashes or lesions noted Course Vital Signs: Vital signs: Vital Signs Temperature 98.0 F 12/26/24 20:05 Pulse Rate 101 H 12/26/24 20:05 Respiratory Rate 18 12/26/24 20:05 Blood Pressure 116/72 12/26/24 20:05 Pulse Oximetry 98 12/26/24 20:05 Oxygen Delivery Me thod Room Air 12/26/24 18:35 MDM - Psych Medical Decision Making Drug-induced acute paranoia's delusions and psychosis. 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 Will admit to U to Dr. Sigala Medical Records I reviewed the patient's medical records. Lab Data I reviewed the patient's lab results. 12/26/24 14:26 12/26/24 14: Laboratory Results WBC 5.70 10^3/uL (3.29-11.43) 12/26/24 14: RBC 3.64 10^6/uL (3.85-5.65) L 12/26/24 14: Hgb 12.70 g/dL (11.27-16.99) 12/26/24 14: Hct 35.5 % (36-47) L 12/26/24 14: MCV 97.5 fl (85-98) 12/26/24 14: MCH 34.9 pg (27-33) H 12/26/24 14: MCHC 35.8 g/dL (30-55) 12/26/24 14: RDW 12.4 % (12.1-15.1) 12/26/24 14: Plt Count 163 10^3/cmm (157-399) 12/26/24 14: MPV 10.7 fL (7.4-10.4) H 12/26/24 14: Neut % (Auto) 79.6 % 12/26/24 14: Lymph % (Auto) 13.9 % 12/26/24 14: [place] % (Auto) 5.1 % 12/26/24 14: Eos % (Auto) 0.5 % 12/26/24 14: Baso % (Auto) 0.5 % 12/26/24 14: Neut # (Auto) 4.54 10^3/uL (1.8-7.7) 12/26/24 14: Lymph # (Auto) 0.8 10^3/uL (0.8-4.8) 12/26/24 14: [place] # (Auto) 0.3 10^3/uL (0.2-0.9) 12/26/24 14: Eos # (Auto) 0.0 10^3/uL (0.0-0.8) 12/26/24 14: Baso # (Auto) 0.0 10^3/uL (0.0-0.1) 12/26/24 14:26 Nucleated RBC % (auto) 0 % 12/26/24 14:26 Nucleated RBCs # 0.0 /100WBC 12/26/24 14:26 Sodium 138 mmol/L (136-145) 12/26/24 14:26 Potassium 3.1 mmol/L (3.5-5.1) L 12/26/24 14:26 Chloride 99 mmol/L (98-107) 12/26/24 14:26 Carbon Dioxide 29 mmol/L (22-29) 12/26/24 14:26 Anion Gap 13.1 (5-19) 12/26/24 14:26 BUN 13 mg/dL (6-20) 12/26/24 14:26 Creatinine 0.6 mg/dL (0.5-0.9) 12/26/24 14:26 GFR Calculation 107.2 mL/min (90-130) 12/26/24 14:26 Glucose 154 mg/dL (65-115) H 12/26/24 14:26 Calculated Osmolality 289 mOsm/kg (285-295) 12/26/24 14:26 Calcium 8.9 mg/dL (8.5-10.5) 12/26/24 14:26 Total Bilirubin 0.6 mg/dL (0.15-1.2) 12/26/24 14:26 AST 20 U/L (0-32) 12/26/24 14:26 ALT 16 U/L (0-33) 12/26/24 14:26 Alkaline Phosphatase 77 U/L (35-105) 12/26/24 14:26 Total Protein 6.5 g/dL (6.6-8.7) L 12/26/24 14:26 Albumin 3.9 g/dL (3.5-5.2) 12/26/24 14:26 Globulin 2.6 g/dL (1.3-4.6) 12/26/24 14:26 Urine Color Yellow (Yellow) 12/26/24 14:57 Urine Appearance Turbid (CLEAR) A 12/26/24 14:57 Urine pH >=9.0 (5-7) A 12/26/24 14:57 Ur Specific [place] 1.025 (1.005-1.030) 12/26/24 14:57 Urine Protein 1+ (Negative) A 12/26/24 14:57 Urine Glucose (UA) Negative (Normal) 12/26/24 14:57 Urine Ketones Negative (Negative) 12/26/24 14:57 Urine Blood 1+ (Negative) A 12/26/24 14:57 Urine Nitrate Negative (Negative) 12/26/24 14:57 Urine Bilirubin Negative (Negative) 12/26/24 14:57 Urine Urobilinogen 1.0 mg/dL (Negative) 12/26/24 14:57 Ur Leukocyte Esterase 1+ (Negative) A 12/26/24 14:57 Urine RBC 21-50 /hpf (0-2) H 12/26/24 14:57 Urine WBC 0-5 /hpf (0-5) 12/26/24 14:57 Ur Squamous Epith Cells 11-20 /hpf (0-5) H 12/26/24 14:57 Amorphous Sediment Not Reportable 12/26/24 14:57 Urine Bacteria None seen /hpf (NONE) 12/26/24 14:57 Hyaline Casts 0.40 /lpf 12/26/24 14:57 Salicylates < 0.3 mg/dL (3-10) L 12/26/24 14:26 Urine Opiates Screen Positive ng/mL (Negative) H 12/26/24 14:57 Acetaminophen < 5.0 ug/mL (10-30) L 12/26/24 14:26 Ur Barbiturates Screen Negative ng/mL (Negative) 12/26/24 14:57 Ur Phencyclidine Scrn Negative ng/mL (Negative) 12/26/24 14:57 Ur Amphetamines Screen Positive ng/mL (Negative) H 12/26/24 14:57 U Benzodiazepines Scrn Negative ng/mL (Negative) 12/26/24 14:57 Urine Cocaine Screen Negative ng/mL (Negative) 12/26/24 14:57 U Marijuana (THC) Screen Positive ng/mL (Negative) H 12/26/24 14:57 Ethyl Alcohol < 10 mg/dL (0-10) 12/26/24 14:26 No radiology studies performed this visit Discharge Plan Discharge Patient Disposition: Admitted As Inpatient Admit Provider: Kirk Sigala Clinical Impression: Drug-induced psychotic disorder, Drug-induced paranoia or hallucinations Condition: Stable Coding Level of Care Code ED Condenser Cleaner for Julianna Irene
[2024-12-26 14:39] LABS: Basophils % 0.5 %; Eosinophils % 0.5 %; Hematocrit 35.5 % (36-47); Lymphocytes # 0.8 10^3/uL (0.8-4.8); Lymphocytes % 13.9 %; Mean Corpuscular HGB Conc 35.8 g/dL (30-55); Mean Corpuscular Hemoglobin 34.9 pg (27-33); Mean Corpuscular Volume 97.5 fl (85-98); Mean Platelet Volume 10.7 fL (7.4-10.4); Monocytes # 0.3 10^3/uL (0.2-0.9); Monocytes % 5.1 %; Neutrophils # 4.54 10^3/uL (1.8-7.7); Neutrophils % 79.6 %; Nucleated Red Blood Cells % 0 %; Platelet Count 163 10^3/cmm (157-399); Red Blood Count 3.64 10^6/uL (3.85-5.65); Red Cell Distribution Width 12.4 % (12.1-15.1)
[2024-12-26 14:59] LABS: Alanine Aminotransferase 16 U/L (0-33); Albumin Level 3.9 g/dL (3.5-5.2); Alkaline Phosphatase 77 U/L (35-105); Anion Gap 13.1 (5-19); Aspartate Amino Transferase 20 U/L (0-32); Blood Urea Nitrogen 13 mg/dL (6-20); Calcium 8.9 mg/dL (8.5-10.5); Carbon Dioxide 29 mmol/L (22-29); Chloride 99 mmol/L (98-107); Creatinine Clr Calc Pharmacy 103.2166; Globulin 2.6 g/dL (1.3-4.6); Glomerular Filtration Rate 107.2 mL/min (90-130); Glucose 154 mg/dL (65-115); Osmolality Calculated 289 mOsm/kg (285-295); Potassium 3.1 mmol/L (3.5-5.1); Sodium 138 mmol/L (136-145); Total Bilirubin 0.6 mg/dL (0.15-1.2); Total Protein 6.5 g/dL (6.6-8.7)
[2024-12-26 15:00] LABS: Acetaminophen < 5.0 ug/mL (10-30); Salicylate < 0.3 mg/dL (3-10)
[2024-12-26 15:01] LABS: Alcohol Level < 10 mg/dL (0-10)
[2024-12-26 15:05] LABS: Bilirubin Urine Negative (Negative); Blood Urine 1+ (Negative); Glucose Urine UA Negative (Normal); Ketones Urine Negative (Negative); Leukocyte Esterase Urine 1+ (Negative); Nitrate Urine Negative (Negative); Protein Urine 1+ (Negative); Specific Gravity, Urine 1.025 (1.005-1.030); Urine Appearance Turbid (CLEAR); Urine Color Yellow (Yellow); pH Urine >=9.0 (5-7)
[2024-12-26 15:10] LABS: Add Urine Microscopic? YES; Bacteria Urine None Seen /hpf; RBC Urine 21-50 /hpf (0-2); WBC Urine 0-5 /hpf (0-5)
[2024-12-26 15:12] LABS: Amphetamines Screen Urine Positive (Negative); Barbiturates Screen Urine Negative (Negative); Benzodiazepines Screen Urine Negative (Negative); Cocaine Screen Urine Negative (Negative); Opiate Screen Urine Positive (Negative); PCP Screen Urine Negative (Negative); THC Screen Urine Positive (Negative)
--- NOTE | 2024-12-26 15:18 | PC.NURSE ---
Involuntary 96 hour hold rights read and reviewed with patient. Patient verbalized understandings and copy of rights given to patient.
--- NOTE | 2024-12-26 16:02 | PC.NURSE ---
pt given turkey sandwich per request
[2024-12-26 18:35] VITALS: BP 107/64; PULSE 64; RESP 16; TEMP 36.3; O2SAT 98
[2024-12-26 20:05] VITALS: BP 116/72; PULSE 101; RESP 18; TEMP 36.7; O2SAT 98
[2024-12-26] MEDS: nicotine 2 mg Gum BUCCAL (20:19)
[2024-12-26] MEDS: hyDROXYzine 25 mg Capsule 50 MG PO (20:19)
[2024-12-26] MEDS: potassium chloride ER 20 mEq Tablet PO (20:19)
[2024-12-26] MEDS: gabapentin 300 mg Capsule 1200 MG PO (21:18)
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
[2024-12-27 06:00] VITALS: BP 108/69; PULSE 98; RESP 16; O2SAT 92
[2024-12-27] MEDS: nicotine 2 mg Gum BUCCAL ×2 (06:09→08:58)
[2024-12-27] MEDS: gabapentin 300 mg Capsule 1200 MG PO ×3 (08:02→20:02)
[2024-12-27] MEDS: cetirizine 10 mg Tablet PO (08:02)
[2024-12-27] MEDS: spironolactone 25 mg Tablet PO ×2 (08:02→17:11)
[2024-12-27] MEDS: CELEcoxib 100 mg Capsule PO ×2 (08:06→17:11)
[2024-12-27 14:00] VITALS: BP 108/64; PULSE 72; RESP 17; TEMP 36.4; O2SAT 97
[2024-12-27] MEDS: nicotine 21 mg Patch 1 PATCH TRANSDERMA (14:03)
[2024-12-27 19:38] LABS: Anion Gap 15.2 (5-19); Blood Urea Nitrogen 15 mg/dL (6-20); Carbon Dioxide 24 mmol/L (22-29); Chloride 106 mmol/L (98-107); Creatinine Clr Calc Pharmacy 88.4714; Glomerular Filtration Rate 89.7 mL/min (90-130); Glucose 93 mg/dL (65-115); Osmolality Calculated 293 mOsm/kg (285-295); Potassium 4.2 mmol/L (3.5-5.1); Sodium 141 mmol/L (136-145)
[2024-12-27 19:40] VITALS: BP 104/63; PULSE 90; RESP 19; TEMP 36.7; O2SAT 97
[2024-12-27] MEDS: hyDROXYzine 25 mg Capsule 50 MG PO (20:02)
[2024-12-27] MEDS: acetaminophen 325 mg Tablet 650 MG PO (20:03)
[2024-12-28 06:00] VITALS: BP 108/68; PULSE 80; RESP 16; O2SAT 98
[2024-12-28] MEDS: ibuprofen 600 mg Tablet PO (06:34)
[2024-12-28] MEDS: nicotine 2 mg Gum BUCCAL ×4 (06:45→16:09)
[2024-12-28] MEDS: spironolactone 25 mg Tablet PO ×2 (08:04→17:15)
[2024-12-28] MEDS: cetirizine 10 mg Tablet PO (08:04)
[2024-12-28] MEDS: CELEcoxib 100 mg Capsule PO ×2 (08:14→17:15)
[2024-12-28] MEDS: acetaminophen 325 mg Tablet 650 MG PO (08:14)
[2024-12-28] MEDS: gabapentin 300 mg Capsule 1200 MG PO ×3 (08:14→20:22)
[2024-12-28] MEDS: hyDROXYzine 25 mg Capsule 50 MG PO (08:15)
[2024-12-28 14:00] VITALS: BP 112/75; PULSE 88; RESP 16; TEMP 37; O2SAT 98
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
[2024-12-28] MEDS: nicotine 4 mg lozenge MUCOUS MEM (18:42)
[2024-12-28 22:00] VITALS: BP 102/63; PULSE 70; RESP 16; TEMP 37; O2SAT 99
[2024-12-29] MEDS: ibuprofen 600 mg Tablet PO ×2 (05:35→08:30)
[2024-12-29] MEDS: nicotine 4 mg lozenge MUCOUS MEM ×4 (05:36→21:22)
[2024-12-29 06:00] VITALS: PULSE 99; RESP 17; TEMP 36.4; O2SAT 97
[2024-12-29] MEDS: nicotine 2 mg Gum BUCCAL (08:30)
[2024-12-29] MEDS: gabapentin 300 mg Capsule 1200 MG PO ×3 (08:30→20:02)
[2024-12-29] MEDS: buprenorphine-naloxone 4-1 mg Film 1 EACH SUBLINGUAL ×2 (08:30→17:01)
[2024-12-29] MEDS: spironolactone 25 mg Tablet PO ×2 (08:30→17:01)
[2024-12-29] MEDS: CELEcoxib 100 mg Capsule PO ×2 (08:30→17:01)
[2024-12-29] MEDS: cetirizine 10 mg Tablet PO (08:31)
[2024-12-29 14:00] VITALS: BP 89/58; PULSE 77; RESP 16; TEMP 36.8; O2SAT 98
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
[2024-12-29 21:14] VITALS: BP 107/66; PULSE 95; RESP 18; TEMP 36.8; O2SAT 98
[2024-12-29] MEDS: hyDROXYzine 25 mg Capsule 50 MG PO (23:52)
[2024-12-30] MEDS: nicotine 4 mg lozenge MUCOUS MEM ×5 (04:55→21:29)
[2024-12-30 05:49] VITALS: BP 102/44; PULSE 92; RESP 18; TEMP 36.8; O2SAT 96
[2024-12-30] MEDS: buprenorphine-naloxone 4-1 mg Film 1 EACH SUBLINGUAL ×2 (09:19→17:50)
[2024-12-30] MEDS: CELEcoxib 100 mg Capsule PO ×2 (09:19→17:50)
[2024-12-30] MEDS: gabapentin 300 mg Capsule 1200 MG PO ×3 (09:19→20:15)
[2024-12-30] MEDS: spironolactone 25 mg Tablet PO ×2 (09:20→17:50)
[2024-12-30] MEDS: cetirizine 10 mg Tablet PO (09:20)
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
[2024-12-30 14:00] VITALS: BP 100/67; PULSE 108; RESP 18; TEMP 36.6; O2SAT 95
[2024-12-30 21:53] VITALS: BP 105/52; PULSE 94; RESP 18; TEMP 36.5; O2SAT 95
[2024-12-31] MEDS: nicotine 4 mg lozenge MUCOUS MEM ×2 (05:20→09:59)
[2024-12-31 06:00] VITALS: BP 116/71; PULSE 113; RESP 18; TEMP 36.4; O2SAT 99
[2024-12-31] MEDS: gabapentin 300 mg Capsule 1200 MG PO (08:13)
[2024-12-31] MEDS: cetirizine 10 mg Tablet PO (08:14)
[2024-12-31] MEDS: CELEcoxib 100 mg Capsule PO (08:14)
[2024-12-31] MEDS: spironolactone 25 mg Tablet PO (08:14)
[2024-12-31] MEDS: buprenorphine-naloxone 4-1 mg Film 1 EACH SUBLINGUAL (08:16)
[2024-12-31 11:27] VITALS: BP 116/71; PULSE 113; RESP 18; TEMP 36.4; O2SAT 99
== END 2024-12-31 13:48 | disposition home or self-care (01) | DRG 897 ==
LOC: ER 14:44 → NP 17:20
PROVIDERS: Admitting Provider Psychiatry & Neurology Psychiatry; Emergency Provider Family Medicine; Visit Provider Psychiatry & Neurology Psychiatry
DX: F15.951 Other stimulant use, unspecified with stimulant-induced psychotic disorder with hallucinations (principal); F41.9 Anxiety disorder, unspecified; F17.200 Nicotine dependence, unspecified, uncomplicated; Z63.9 Problem related to primary support group, unspecified; Z62.810 Personal history of physical and sexual abuse in childhood
CPT/HCPCS: 36415; 80048; 80053; 80306; 80307; 81001; 85025; 97150; 97165; 99285; J0573; J9999

== ENCOUNTER → 2025-03-04 09:45 | Outpatient (BNVA) | payer BC, MEDICAID, SELFPAY | PROVIDERS: Visit Provider Emergency Medicine | DX: J02.9 Acute pharyngitis, unspecified (principal) | CPT/HCPCS: 87070; 87880 ==

== ENCOUNTER 2025-05-01 19:30 | Emergency (ER) | payer BC, MEDICAID, SELFPAY ==
--- OUTSIDE RECORDS SUMMARY | 2025-05-01 19:39 | XMS_ITS | Clinical Summary ---
Author Organization [facility] Address [facility] [place] [address] Care Team Providers Care Recreation Adviser Name Role Phone Non-Staff, Physician Primary Care Provider Unava ilable Allergies Active Allergy Reactions Criticality Noted Date Comments Sumatriptan Swelling Low 07/17/2016 Medications gabapentin (NEURONTIN) 800 mg tablet Take 800 mg by mouth 3 times daily. Active baclofen (LIORESAL) 10 mg tablet Take 10 mg by mouth 3 times daily. Active Loratadine 5 mg Tablet, Rapid Dissolve Take by mouth. Active raNITIdine (ZANTAC) 75 mg Tablet Take 75 mg by mouth 2 times daily. Active mupirocin (BACTROBAN) 2 % Ointment Apply to affected area daily. 15 Gram 03/18/2017 Active varenicline (Chantix) 1 mg Tablet Take 1 mg by mouth daily. Active methocarbamoL (ROBAXIN) 750 mg tablet Take 750 mg by mouth 4 times daily. Active Active Problems Problem Noted Date Diagnosed Date Tobacco use 07/17/2016 Social History Tobacco Use Types Packs/Day Years Used Date Smoking Tobacco: Every Day Cigarettes 0.3 27 Smokeless Tobacco: Former Tobacco Cessation:Ready to Q uit: Yes; Counseling Given: Yes Alcohol Use Standard Drinks/Week Comments Yes 0 (1 standard drink = 0.6 oz pur e alcohol) Comments No Sex and Gender Information Value Date Recorded Sex Assigned at Not on file Legal Sex Female 5:42 AM CREDIT INTERN Gender Identity Not on file Sexual Orientation Not on file Last Filed Vital Signs Vital Sign Reading Time Taken Comments Blood Pressure 112/70 02/06/2020 5:35 PM CDT Pulse 87 03/18/2017 4:17 PM CDT Temperature 36.3 C (97.3 F) 02/06/2020 3:48 PM CDT Respiratory Rate 16 02/06/2020 5:35 PM CDT Oxygen Saturation 97% 02/06/2020 5:35 PM CDT Inhaled Oxygen Concentration - - Weight 78.8 kg (173 lb 11.2 oz) 02/06/2020 3:48 PM CDT Height 162.6 cm (5' 4 ) 02/06/2020 3:48 PM CDT Body Mass Index 29.82 02/06/2020 3:48 PM CDT Plan of Treatment Health Maintenance Due Date Last Done Comments DTAP/TDAP/TD VACCINES (1 - Tdap) 1996 HEPATITIS B VACCINES (1 of 3 - 19+ 3-dose series) 08/1996 HPV/Cotest (21-29) 1998 CERVICAL CANCER SCREENING 2007 HPV/Cotest (30-65) 2007 PAP SMEAR 2007 BREAST CANCER SCREENING 2017 COLORECTAL SCREENING 2022 Colorectal Cancer Screening 2022 FIT-DNA Q 3 years 2022 FIT/FOBT Q 1 year 2022 Flex Sig/CT Colonography Q 5 years 2022 INFLUENZA VACCINE (#1) 2025 Care Teams Recreation Adviser Relationship Specialty Start Date End Date Non-Staff, Physician NO ADDRESS ON FILE PCP - General 07/17/16
--- OUTSIDE RECORDS SUMMARY | 2025-05-01 19:39 | XMS_ITS | Clinical Summary ---
Author Organization [facility] Address [address] [place]: Epic Prelude ADT [place] [address] Care Team Providers Care Oil Well Engineer Name Role Phone Non-Staff, Physician Primary Care Provider Unava ilable Allergies Active Allergy Reactions Criticality Noted Date Comments Sumatriptan Swelling Low 07/17/2016 Medications gabapentin (NEURONTIN) 800 mg tablet Take 800 mg by mouth 3 times daily. 07/17/2016 Active Loratadine 5 mg Tablet, Rapid Dissolve Take by mouth. 07/17/2016 Active raNITIdine (ZANTAC) 75 mg Tablet Take 75 mg by mouth 2 times daily. 07/17/2016 Active baclofen (LIORESAL) 10 mg tablet Take 10 mg by mouth 3 times daily. 07/17/2016 Active Active Problems Problem Noted Date Diagnosed Date Tobacco use 07/17/2016 Social History Tobacco Use Types Packs/Day Years Used Date Smoking Tobacco: Every Day Cigarettes Smokeless Tobacco: Former Tobacco Cessation:Ready to Q uit: Not Asked; Counseling Given: Not Answered Alcohol Use Standard Drinks/Week Comments Not Currently 0 (1 standard drink = 0.6 oz pur e alcohol) Feeling Safe Answer Date Recorded Are you in a relationship wi th someone who hurts you emotionally and/or physically? No 04/08/2023 Comments No Sex and Gender Information Value Date Recorded Sex Assigned at Not on file Legal Sex Female 10:21 AM SOLUTION DEVELOPER Gender Identity Not on file Sexual Orientation Not on file Last Filed Vital Signs Vital Sign Reading Time Taken Comments Blood Pressure 107/46 04/08/2023 1:15 PM CDT Pulse 67 04/08/2023 1:15 PM CDT Temperature 36.5 C (97.7 F) 11/01/2021 4:48 PM CDT Respiratory Rate 20 11/01/2021 5:12 PM CDT Oxygen Saturation 94% 04/08/2023 1:15 PM CDT Inhaled Oxygen Concentration - - Weight 68.9 kg (152 lb) 11/01/2021 4:48 PM CDT Height 160 cm (5' 3 ) 11/01/2021 4:48 PM CDT Body Mass Index 26.93 11/01/2021 4:48 PM CDT Plan of Treatment Health Maintenance Due Date Last Done Comments HPV/Cotest (21-29) 1998 CERVICAL CANCER SCREENING 2007 HPV/Cotest (30-65) 2007 PAP SMEAR 2007 COLORECTAL SCREENING 2022 Colorectal Cancer Screening 2022 FIT-DNA Q 3 years 2022 FIT/FOBT Q 1 year 2022 Flex Sig/CT Colonography Q 5 years 2022 HEPATITIS B VACCINES (3 of 3 - Hep B Twinrix 3-dose series) 03/09/2023 10/07/2022, 09/07/2022 BREAST CANCER SCREENING 04/23/2023 04/23/2022, 04/23 INFLUENZA VACCINE (#1) 2025 DTAP/TDAP/TD VACCINES (4 - T d or Tdap) 12/05/2032 12/05/2022, 01/15/2022, 02/26/2015 Insurance [facility] MEDICAID Care Teams Oil Well Engineer Relationship Specialty Start Date End Date Non-Staff, Physician NO ADDRESS ON FILE PCP - General 07/17/16
[2025-05-01 19:41] VITALS: BP 120/77; PULSE 103; TEMP 36.8; O2SAT 98; BMI 22.8
--- NOTE | 2025-05-01 19:48 | W.ED.BACK ---
HPI - Back Pain/Injury General: Chief Complaint: Back Pain/Injury Stated Complaint: neck back shoulder pain pulled Time Seen by Provider: 05/01/25 19:39 History of Present Illness: 49yo F w/cc of cervical neck and thoracic back pain for 1 month. She states that pain started when she nearly tripped, went to catch herself. Since then, patient has had pain in the right side of her cervical neck, trapezius muscle, musculature around her shoulder blades and upper back. She states that she did receive a dose of Toradol which helped some but has not resolved her symptoms. Patient has had a low-grade headache that feels like tension in the back of her neck. Patient has pain with movement of her right upper extremity though she denies weakness, numbness, bowel or urinary incontinence, saddle anesthesia, difficulty with ambulating. Patient has not had a fever, malaise, chills and denies chest pain, shortness of breath, abdominal pain, nausea, vomiting. 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 Patient denies any IVDU or immunocompromise. Related Data Previous Rx's ?Medication ?Instructions ?Recorded albuterol sulfate 90 mcg/actuation 1 - 2 inh inhalation Q6H PRN 07/12/22 aerosol inhaler (Ventolin HFA) shortness of breath or wheezing #6.7 grams cetirizine 10 mg tablet (Zyrtec) 10 mg PO DAILY #30 tabs 11/27/23 gabapentin 300 mg capsule 1,200 mg (4 x 300 mg) PO TID #90 12/31/24 caps spironolactone 25 mg tablet 25 mg PO BID 30 days #60 tabs 12/31/24 baclofen 20 mg tablet 20 mg PO BID #14 tabs 04/29/25 celecoxib 100 mg capsule 100 mg PO BID #30 caps 04/29/25 dexamethasone 4 mg tablet 10 mg (2.5 x 4 mg) PO ONCE #2.5 05/01/25 tabs naproxen 375 mg tablet 375 mg PO BID 30 days #60 tabs 05/01/25 Allergies Allergy/AdvReac Type Severity Reaction Status Date / Time orange Allergy Severe ALGY-Anaphy Verified 05/01/25 19:47 laxis tomato Allergy Severe ALGY-Bliste Verified 05/01/25 19:47 r amoxicillin Allergy Intermediate ALGY-Bliste Verified 05/01/25 19:47 r Penicillins Allergy Intermediate ALGY-Bliste Verified 05/01/25 19:47 r sumatriptan (From Imitrex) Allergy Intermediate swollen Verified 05/01/25 19:47 throat [facility] PFSH: Medical History (Updated 05/01/25 @ 20:05 by Marbella Bennett MD) Strain of muscle, fascia and tendon at neck level, initial encounter Allergic rhinosinusitis Neck pain Fall as cause of accidental injury at home as place of occurrence Encounter for long-term opiate analgesic use 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 Patient is alert and oriented. Patient is breathing comfortably, no increased WOB or accessory muscle use. SpO2 is above 95% on RA. Patient has clear lungs b/l, no rhonchi, wheezing or crackles. No hypotension. Normal heart sounds. Abdomen is soft, nondistended and nontender. Patient is moving all extremities, no deformity or gross injury. No lower extremity edema or asymmetry. Patient has pain w/palpation of the R cervical paraspinal musculature, trapezius muscle, and muscles of the thoracic back. There is no shoulder joint swelling, decreased ROM, erythema or warmth. Neck is supple and she is able to move in full range of motion though it is more painful when turning head to the right. No extremity weakness or sensory deficits. No significant tenderness w/percussion of the cervical, thoracic spine. She has some L spine tenderness though she states this is chronic. Course Vital Signs: Vital signs: Vital Signs Temperature 98.2 F 05/01/25 19:41 Pulse Rate 103 H 10/22/25 19:41 Blood Pressure 120/77 05/01/25 19:41 Pulse Oximetry 98 05/01/25 19:41 Oxygen Delivery Me thod Room Air 05/01/25 19:41 MDM - Back Pain/Injury Medical Decision Making 49yo F w/cc of R cervical neck and upper back pain for one month. Differential diagnosis includes, but is not limited to, spinal fracture, herniated disc, radiculopathy, shoulder pathology such as rotator cuff tear, tendinitis, arthritis, cervical neck and back arthritis, muscle spasm, cervical neck sprain and thoracic back strain. On exam, patient is HemoCue stable and does not appear toxic. Patient does not have any deficits on neurologic exam. Based on my history and physical exam, there are no red flags and patient's symptoms are most consistent with musculoskeletal pain, cervical neck sprain, thoracic back sprain and muscle spasms. She was treated in the emergency department with p.o. naproxen, p.o. Tylenol and p.o. Valium and a lidocaine patch. We discussed referral to physical therapy per PCP to which she is amenable. If patient's symptoms are not resolving, she may benefit from MRI of her spine. At this time, patient does not appear to be experiencing a medical emergency and is appropriate for further outpatient management. Patient was counseled on supportive care at home, given return precautions and discharged in stable condition. No radiology studies performed this visit Discharge Plan Discharge Patient Disposition: Home Clinical Impression: Strain of thoracic back region, Muscle spasm Sprain of cervical neck Qualifiers: Encounter type: initial encounter Qualified Code(s): S13.9XXA - Sprain of joints and ligaments of unspecified parts of neck, initial encounter Condition: Stable Prescriptions: New dexamethasone 4 mg tablet 10 mg PO ONCE Qty: 2.5 0RF naproxen 375 mg tablet 375 mg PO BID 30 Days Qty: 60 0RF No Action Ventolin HFA 90 mcg/actuation HFA aerosol inhaler 1 - 2 inh inhalation Q6H PRN (Reason: shortness of breath or wheezing) Qty: 6.7 0RF baclofen 20 mg tablet 20 mg PO BID Qty: 14 0RF celecoxib 100 mg capsule 100 mg PO BID Qty: 30 0RF cetirizine [Zyrtec] 10 mg tablet 10 mg PO DAILY Qty: 30 0RF ketorolac 30 mg/mL solution 60 mg IM ONCE Qty: 2 0RF spironolactone 25 mg tablet 25 mg PO BID 30 Days Qty: 60 1RF gabapentin 300 mg capsule 1,200 mg PO TID Qty: 90 1RF Discharge Orders: Discharge ED (Routine); Ordered 05/01/25 Ordered By: Marbella Bennett Patient Instructions: Cervical Sprain (ED), Muscle Spasm (ED), Back Pain (ED), Opioid Safety, Pain Management, Patient Portal & Zena Instructions Activity Restrictions/Additional Instructions: Please take naproxen twice a day as prescribed for the next 2 to 4 weeks. You may also take 500 mg to 1000 mg of Tylenol every 6 hours to help with pain. Take 1 dose of steroid to help with inflammation. You may use [id number] lidocaine patches, range of motion exercises and heat to help relieve your symptoms. Talk to your primary care physician about referral to physical therapy. If your symptoms do not resolve with conservative management, you may need an MRI of your cervical or thoracic back. Continue to monitor your condition closely at home. If your condition worsens or additional concerns arise, please return to the emergency department for reassessment. Print Language: Taiwanese Coding Level of Care Code ED Digital Content Producer for Julianna Irene
[2025-05-01 20:21] VITALS: BP 121/78; PULSE 90; RESP 16; O2SAT 98
[2025-05-01 20:26] VITALS: BP 121/78; PULSE 90; RESP 16; O2SAT 98
== END 2025-05-01 20:28 | disposition home or self-care (01) ==
PROVIDERS: Emergency Provider Emergency Medicine
DX: S29.012A Strain of muscle and tendon of back wall of thorax, initial encounter (principal); M62.838 Other muscle spasm; S13.9XXA Sprain of joints and ligaments of unspecified parts of neck, initial encounter; Z72.0 Tobacco use; W18.40XA Slipping, tripping and stumbling without falling, unspecified, initial encounter
CPT/HCPCS: 99283; J9999

== ENCOUNTER → 2025-06-07 12:31 | Outpatient (BNVA) | payer BC, MEDICAID, SELFPAY | PROVIDERS: Visit Provider Emergency Medicine | DX: J02.9 Acute pharyngitis, unspecified (principal) | CPT/HCPCS: 87071; 87880 ==